=== PATIENT | female | born 1945 | race Caucasian/White ===

== ENCOUNTER → 2017-06-13 09:16 | Outpatient (CLI) | payer MEDICARE, SELFPAY ==
[2017-06-13 11:15] LABS: AST(SGOT) 20 U/L (15-37); Alanine Aminotransfer ALT/SGPT 22 U/L (13-56); Albumin, Serum 3.9 g/dL (3.2-5.0); Alkaline Phosphatase 88 U/L (45-117); Anion Gap 8 (5-15); BUN 22 mg/dL (7-18); BUN/Creat Ratio 23.4 RATIO (10-20); Calcium,Total 9.2 mg/dL (8.5-10.1); Chloride 103 mmol/L (98-107); Cholesterol 146 mg/dL (200); Creatinine, Serum 0.94 mg/dL (0.55-1.02); EST Glomerular Filtration Rate 62 mL/min (>60); Est Glom Filt Rate - Afr Amer 76 mL/min (>60); Globulin 3.8 g/dL (2.2-4.2); Glucose 94 mg/dL (74-106); Hemoglobin A1c 5.6 % (4.2-6.3); High Density Lipoprotein 65 mg/dL; Potassium 3.8 mmol/L (3.5-5.1); Protein, Total 7.7 g/dL (6.4-8.2); Sodium Level 142 mmol/L (136-145); Triglycerides 95 mg/dL; Very Low Density Lipoprotein 19 mg/dL (5-40)
== END ==
PROVIDERS: Nurse Practitioner Family; Family Provider Internal Medicine; PCP Internal Medicine; Visit Provider Internal Medicine
DX: I10 Essential (primary) hypertension (principal); E78.5 Hyperlipidemia, unspecified; E11.9 Type 2 diabetes mellitus without complications
CPT/HCPCS: 36415; 80053; 80061; 83036

== ENCOUNTER → 2017-06-15 10:55 | Outpatient (CLI) | payer MEDICARE, SELFPAY | PROVIDERS: Family Provider Internal Medicine; PCP Internal Medicine; Visit Provider Internal Medicine | DX: E55.9 Vitamin D deficiency, unspecified (principal) | CPT/HCPCS: 36415; 82306 ==

== ENCOUNTER → 2017-09-13 09:43 | Outpatient (CLI) | payer MEDICARE, SELFPAY ==
[2017-09-13 12:53] LABS: Anion Gap 6 (5-15); BUN 16 mg/dL (7-18); BUN/Creat Ratio 17.1 RATIO (10-20); Calcium,Total 9.1 mg/dL (8.5-10.1); Chloride 105 mmol/L (98-107); Creatinine, Serum 0.93 mg/dL (0.55-1.02); EST Glomerular Filtration Rate 63 mL/min (>60); Est Glom Filt Rate - Afr Amer 76 mL/min (>60); Glucose 83 mg/dL (74-106); Potassium 3.8 mmol/L (3.5-5.1); Sodium Level 142 mmol/L (136-145)
[2017-09-13 12:59] LABS: Hemoglobin A1c 5.5 % (4.2-6.3)
== END ==
PROVIDERS: Family Provider Internal Medicine; PCP Internal Medicine; Visit Provider Internal Medicine
DX: E11.9 Type 2 diabetes mellitus without complications (principal); I10 Essential (primary) hypertension
CPT/HCPCS: 36415; 80048; 83036

== ENCOUNTER → 2017-09-28 10:41 | Outpatient (CLI) | payer MEDICARE, SELFPAY ==
--- NOTE | 2017-09-28 10:43 | BI_ITS ---
MAMMOGRAPHY - BILATERAL SCREENING REASON FOR EXAM: Female, 72 years old. Routine annual screening examination. PERTINENT HISTORY: Non-contributory. TECHNIQUE: Digital bilateral breast dusty (3D mammographic acquisition) in the CC and MLO projections. 2-D mediolateral oblique (MLO) and craniocaudad (CC) views of both breasts were obtained. CAD: Full Field Digital Mammography with Computer Added Detection was performed. COMPARISON: Comparison is made with prior study dated September 25, 2016 and September 06, 2015. FINDINGS: Breast Composition: There are scattered areas of fibroglandular density. There are no dominant masses or suspicious calcifications. Stable appearance of the calcifications in the deep mid slightly outer aspect of the left breast most likely vascular in nature. No other significant abnormalities are identified. There has been no significant change since the prior study. BI/SCREENING MAMM (CAD), BILAT IMPRESSION: Stable bilateral screening mammogram. Yearly follow-up mammogram recommended. (A) ASSESSMENT CATEGORY: BIRADS Category 2: Benign. A letter regarding these results will be sent to the patient by the facility within 30 days. Approximately 10% of breast cancers are not detected by mammography. A normal mammogram should not delay biopsy of a clinically suspicious abnormality. [id number] Electronically Signed: Bairon Peterson MD at 12:35 EDT Tel [phone], Service support ,
== END ==
PROVIDERS: Family Provider Internal Medicine; PCP Internal Medicine; Visit Provider Internal Medicine
DX: Z12.31 Encounter for screening mammogram for malignant neoplasm of breast (principal)
CPT/HCPCS: 77063; 77067

== ENCOUNTER → 2018-03-14 08:09 | Outpatient (CLI) | payer MEDICARE, SELFPAY ==
[2018-03-14 10:01] LABS: Absolute Lymphocyte Count 2.42 X10^3/ul (0.83-4.51); Absolute Neutrophil Count 3.2 X10^3/uL (2.0-7.7); Basophil# 0.04 X10^3/uL; Basophil% 0.6 % (0-1); Eosinophil# 0.34 X10^3/uL; Eosinophils% 5.2 % (0-5); Hematocrit 37.7 % (37-47); Hemoglobin 12.3 g/dl (12.0-15.0); Lymphocyte # 2.42 X10^3/ul (4.0); Lymphocyte % 37.1 % (19-41); Mean Corp Hgb Conc 32.6 g/gl (32-36); Mean Platelet Vol. 9.2 fl (6.2-12.0); Monocyte# 0.54 X10^3/uL; Monocyte% 8.3 % (0-10); Neutrophil # 3.19 X10^3/uL (2.7-7.7); Neutrophil % 48.8 % (47-70); Platelet Count 280 K/mm3 (150-450); RBC Distribution Width CV 12.9 % (11.6-14.6); RBC Distribution Width SD 44.9 fl (35.1-43.9); Red Blood Count 3.97 M/mm3 (4.2-5.4); White Blood Count 6.5 K/mm3 (4.4-11.0)
[2018-03-14 10:12] LABS: POSITIVE COUNT NO; POSITIVE DIFFERENTIAL NO; POSITIVE MORPHOLOGY NO
[2018-03-14 10:20] LABS: Hemoglobin A1c 6.1 % (4.2-6.3)
[2018-03-14 10:33] LABS: ALB/GLOB Ratio 1.1 RATIO (0.9-2.4); AST(SGOT) 17 U/L (15-37); Alanine Aminotransfer ALT/SGPT 24 U/L (13-56); Albumin, Serum 3.9 g/dL (3.2-5.0); Alkaline Phosphatase 82 U/L (45-117); Anion Gap 9 (5-15); BUN 19 mg/dL (7-18); BUN/Creat Ratio 21.7 RATIO (10-20); Calcium,Total 9.3 mg/dL (8.5-10.1); Chloride 103 mmol/L (98-107); Cholesterol 155 mg/dL (200); Creatinine, Serum 0.88 mg/dL (0.55-1.02); EST Glomerular Filtration Rate 68 mL/min (>60); Est Glom Filt Rate - Afr Amer 82 mL/min (>60); Globulin 3.4 g/dL (2.2-4.2); Glucose 93 mg/dL (74-106); High Density Lipoprotein 81 mg/dL; Potassium 3.5 mmol/L (3.5-5.1); Protein, Total 7.3 g/dL (6.4-8.2); Sodium Level 142 mmol/L (136-145); Triglycerides 93 mg/dL; Very Low Density Lipoprotein 19 mg/dL (5-40)
== END ==
PROVIDERS: Family Provider Internal Medicine; PCP Internal Medicine; Referring Provider Internal Medicine; Visit Provider Internal Medicine
DX: E11.9 Type 2 diabetes mellitus without complications (principal); E78.5 Hyperlipidemia, unspecified
CPT/HCPCS: 36415; 80053; 80061; 83036; 85025

== ENCOUNTER → 2018-03-26 13:21 | Outpatient (CLI) | payer MEDICARE, SELFPAY ==
--- NOTE | 2018-03-26 13:33 | BD_ITS ---
STUDY: DUAL ENERGY X-RAY ABSORPTIOMETRY / DXA REASON FOR EXAM: Female, 72 years old. Early menopause. Loss of height. TECHNIQUE: Bone Mineral Density (BMD) measurements of lumbar spine and bilateral hips were obtained. COMPARISON: Comparison is made with prior study dated June 26, 2013. FINDINGS: Lumbar Spine (L1-L4): g/cm2 (1.087) / T-score (-0.7) / Z-score (1.0) Findings are suggestive of normal bone density with a low fracture risk. Left Femur Total: g/cm2 (1.171) / T-score (1.3) / Z-score (2.8) Left Femoral Neck: g/cm2 (1.100) / T-score (0.4) / Z-score (2.2) Right Femur Total: g/cm2 (1.069) / T-score (0.5) / Z-score (2.0) Right Femoral Neck: g/cm2 (0.947) / T-score (-0.7) / Z-score (1.1) The T-Scores on the most recent prior examination were: Lumbar Spine (L1-L4): There has been worsening of bone density since the previous examination. Left Femur Total: which represents a worsening of 0.9%. Right Femur Total: which represents a worsening of 0.6%. BD/Dexa Bone Density Study IMPRESSION: The patient is considered normal as outlined below according to World [place] Organization (WHO) criteria with a low fracture risk. There has been worsening of bone density since the previous examination. Reference Information: The T-score is the number of standard deviations above or below the standard which is normal for young adults at their peak bone mineral density. The World Health Organization (WHO) interprets the T-scores as follows: Above -1 Normal bone density Between -1 and -2.5 Osteopenia Equal to / or below -2.5 Osteoporosis As a practical clinical guideline, osteopenia may be graded as follows: Mild -1 through -1.5 Moderate -1.6 through -2.0 Severe -2.1 through -2.4 The Z-score is the number of standard deviations above or below age-matched controls. A Z-score of less than -1.5 would be considered abnormal. References: 1. NIH Osteoporosis and Related Bone Diseases http://www.osteo.org 2. International Society for Clinical Densitometry http://www.iscd.org 3. National Osteoporosis Foundation http://www.nof.org Electronically Signed: Bairon Peterson MD at 11:04 EST Tel [phone], Service support ,
== END ==
PROVIDERS: Family Provider Internal Medicine; PCP Internal Medicine; Visit Provider Internal Medicine
DX: Z78.0 Asymptomatic menopausal state (principal)
CPT/HCPCS: 77080

== ENCOUNTER → 2018-04-09 16:11 | Outpatient (CLI) | payer MEDICARE, SELFPAY ==
--- NOTE | 2018-04-09 16:14 | RAD_ITS ---
STUDY: X-RAY - SOFT TISSUE NECK REASON FOR EXAM: Female, 72 years old. Pain TECHNIQUE: 2 view(s) of the neck were obtained. COMPARISON: None. FINDINGS: Normal visualized nasopharynx, oropharynx, hypopharynx. Normal epiglottis. Normal visualized subglottic tracheal air column. There are no radiodense foreign bodies. The visualized soft tissues are unremarkable. RAD/Neck for Soft Tissue IMPRESSION: Normal x-ray soft tissue neck. Electronically Signed: Jose Sparks, at 16:41 EST Tel , Service support ,
--- NOTE | 2018-04-09 16:17 | RAD_ITS ---
STUDY: X-RAY - CERVICAL SPINE REASON FOR EXAM: Female, 72 years old. Pain TECHNIQUE: 6 view(s) of the cervical spine were obtained. COMPARISON: None FINDINGS: There is no evidence of fracture or dislocation in the cervical spine. The dens is intact. The vertebral body heights are well-maintained. There are mild degenerative changes in the lower cervical spine with disc space narrowing and small osteophytes. The prevertebral soft tissues are unremarkable. There is no radiodense foreign body. RAD/Cerv Spine 4 or 5 Views IMPRESSION: No fracture or dislocation in the cervical spine. Mild degenerative changes in the lower cervical spine. Electronically Signed: Jose Sparks, at 16:44 EST Tel , Service support ,
== END ==
PROVIDERS: Family Provider Internal Medicine; PCP Internal Medicine; Referring Provider Internal Medicine; Visit Provider Internal Medicine
DX: M54.2 Cervicalgia (principal)
CPT/HCPCS: 70360; 72050

== ENCOUNTER 2018-04-29 09:28 | Outpatient (RCR) | payer MEDICARE, SELFPAY ==
--- NOTE | 2018-05-01 11:18 | HP.PTEVAL_ITS ---
Patient's Visit Information DAVE VALERO is a 72 year old F referred to Physical Therapy by Desean Cartagena MD with a diagnosis of Cervicalgia. Date of Evaluation: 04/29/18 Physical Therapist: Leopoldo Trimble DPT - Visit Plan Frequency: 1x/Week Duration: 4 Weeks Plan: Start with R levator scap stretching, pec stretching, mid row, rhomboid strengthening. Add in SNAG rotation to R side only. Pt. given above exercises for HEP. Pt. to trial on own for 1-2 weeks to determine if able to self manage. If symptoms continue to improve or stay minimal/abolish, pt. does not need to return. If symptoms resume pt. to call in and be re assessed. - Subjective Findings: Pt. is here today for her initial evaluation with diagnosis of cervicalgia. Pt. reports having pain for ~6 weeks. She started taking a steroid and muscle relaxor which gave minimal relief. Pt. then started taking a pain medication and is no longer having symptoms. She has stopped taking this medication and is doing better. Pt. reports having no pain currently. She denies N/T in either UE. Pt. is back to sleeping without issues as well. Pt. is hopeful to maintain the reduction of her symptoms and get back to all recreational activities without limitations. - Objective POSTURE: Pt. has slight flexed posture, FH, increased thoracic kyposis, but is able to improve with VCing. PALPATON: Pt. has mild tenderness at R levator s capulea region. no pain with palpation througout cervical spine, cervical erector spinea. NEURO: Pt. has normal DTR of bilateral UEs, Pt. has normal sensation throughout bilateral UEs. ROM: CERVICAL SPINE: flexion nil loss NE, ext mod loss NE, rotation R min loss increase nW, rotation L nil loss NE, SB nil loss bilat NE. MMT: PT. has 5-/5 throughout bilateral UEs. Pt. has 5/5 cervical isometrics. - Special Tests C/S Radiculapathy - Left Upper limb tension test: Negative C/S Radiculapathy - Right Upper limb tension test: Negative C/S Radiculapathy - Left Spurlings: Negative C/S Radiculapathy - Right Spurlings: Negative C/S Radiculapathy - Left Cervical distraction: Negative C/S Radiculapathy - Right Cervical distraction: Negative C/S Radiculapathy - Left Relief test: Negative C/S Radiculapathy - Right Relief test: Negative C/S Radiculapathy - Valsalva: Negative Cervical Sitting: Protrusion - Mechanical Response: No effect Cervical Sitting: Protrusion - Symptoms During Testing: No effect Cervical Sitting: Protrusion - Symptoms After Testing: No effect Cervical Sitting: Retraction - Mechanical Response: No effect Cervical Sitting: Retraction - Symptoms During Testing: No effect Cervical Sitting: Retraction - Symptoms After Testing: No effect Cervical Sitting: Retraction-Extension - Mechanical Response: No effect Cerv Sitting: Retraction-Extension - Symptoms During Testing: No effect Cerv Sitting: Retraction-Extension - Symptoms After Testing: No effect Cervical Sitting: Sidebend Right - Mechanical Response: No effect Cervical Sitting: Sidebend Right - Symptoms During Testing: No effect Cervical Sitting: Sidebend Right - Symptoms After Testing: No effect Cervical Sitting: Sidebend Left - Mechanical Response: No effect Cervical Sitting: Sidebend Left - Symptoms During Testing: No effect Cervical Sitting: Sidebend Left - Symptoms After Testing: No effect Cervical Sitting: Rotation Right - Mechanical Response: No effect Cervical Sitting: Rotation Right - Symptoms During Testing: Increases Cervical Sitting: Rotation Right - Symptoms After Testing: No worse Cervical Sitting: Rotation Left - Mechanical Response: No effect Cervical Sitting: Rotation Left - Symptoms During Testing: No effect Cervical Sitting: Rotation Left - Symptoms After Testing: No effect Cervical Sitting: Flexion - Mechanical Response: No effect Cervical Sitting: Flexion - Symptoms During Testing: No effect Cervical Sitting: Flexion - Symptoms After Testing: No effect - Goals Goal 1:: Pt. to be I with HEP. Goal Time Frame: 2-4 Weeks Goal 2:: Pt. to have full cervical rotation to R side wihtout increase in symptoms. Goal Time Frame: 2-4 Weeks Goal 3:: Pt. to resume all recreational activities without increase in symptoms. Goal 4:: Pt. to sleep throughout the night without increase in symptoms. Goal Time Frame: 4-6 Weeks Goal 5:: Pt. to demonstrate improved posture throughout therapy visit indicating increased postural awareness. - Rehabilitation Potential Physical Therapy Diagnosis: Pt. has signs and symptoms of cervicalgia. Pt. has drastically reduced symptoms since physician visit. Pt. is tender at R levator scapulea with slight limitation with right cervical rotation. Pt. presents with more of a R levator scpaulea strain, may be trasverse process derrangement. Pt. would benefit from PT to increase cervical ROM and reudce movements that increase stress to R side of cervical spine. Rehabilitation Potential: Excellent - Anticipated Interventions Patient/Client Instruction: Educate patient on: Condition, Plan of Care, Risk Factors, Benefits of Fitness Program For the Purpose of:: To improve decision making, To facilitate caregiver knowledge, To improve self management, To prevent re-injury, To improve ability to perform tasks related to life management, To improve tolerance to ADL's Therapeutic Exercise to Include: Strength training, Postural training, Flexibilty training, Passive ROM, Active ROM For the Purpose of:: To decrease pain, To increase ROM, To improve nutrient delivery to tissue, To improve muscle performance and motor function, To improve health of tissue, To decrease soft tissue restriction, To increase flexibility/ROM Thank you for the opportunity to evaluate your patient. For Medicare and Medicare HMO plans, please review the plan of care and approve it. It will need to be FAXED BACK to us at [phone] for Medicare purposes. For Medicare only, by signing this I certify the plan of care. Please let me know if there are questions or concerns regarding this plan of care. Physician Signature: Date:
--- NOTE | 2018-11-14 14:03 | HP.PT.NRP ---
HP - Discharge Summary (1) - Patient Information DAVE VALERO was seen in my office for initial evaluation on 04/29/18. The following Plan of Care was established for this patient: Initial Frequency: 1x/Week Initial Duration: 4 Weeks - Anticipated Interventions Patient/Client Instruction: Educate patient on: Condition, Plan of Care, Risk Factors, Benefits of Fitness Program For the Purpose of:: To improve decision making, To facilitate caregiver knowledge, To improve self management, To prevent re-injury, To improve ability to perform tasks related to life management, To improve tolerance to ADL's Therapeutic Exercise to Include: Strength training, Postural training, Flexibilty training, Passive ROM, Active ROM For the Purpose of:: To decrease pain, To increase ROM, To improve nutrient delivery to tissue, To improve muscle performance and motor function, To improve health of tissue, To decrease soft tissue restriction, To increase flexibility/ROM This patient was last seen in our office 04/29/18. Pertinent comments regarding their Physical therapy will appear below: Pt. was seen for her initial evaluation, but did not return. Pt. will be DC from PT at this point intime. At this point I will be discontinuing this patient from physical therapy. I would be happy to see this patient again in the future if found appropriate by the physician. Thank you! Leopoldo Trimble DPT
== END 2018-04-29 19:00 | disposition home or self-care (01) ==
LOC: PT 09:28
PROVIDERS: Family Provider Internal Medicine; PCP Internal Medicine; Visit Provider Internal Medicine
DX: M54.2 Cervicalgia (principal)
CPT/HCPCS: 97161

== ENCOUNTER 2018-05-16 19:59 | Emergency (ER) | payer MEDICARE, SELFPAY ==
[2018-05-16 20:00] VITALS: BP 125/81; PULSE 69; RESP 16; TEMP 37.6; O2SAT 97; BMI 28.6
[2018-05-16 22:15] VITALS: BP 141/84; PULSE 66; RESP 16; O2SAT 94
--- NOTE | 2018-05-16 22:31 | CT_ITS ---
STUDY: CT BRAIN WITHOUT CONTRAST REASON FOR EXAM: Female, 72 years old. Fall and right eye bruising RADIATION DOSAGE (If Supplied By Facility): CTDIvol = ( 44.99 ) mGy, DLP = ( 812.98 ) mGycm TECHNIQUE: Transaxial CT imaging of the brain was performed without administration of intravenous contrast material. Individualized dose optimization techniques were used for this CT. COMPARISON: None. FINDINGS: Right periorbital swelling. Hyperostosis frontalis interna. Normal size ventricles and extra-axial spaces for the patient's age. There are areas of decreased attenuation within the white matter tracts of the supratentorial brain, consistent with microvascular disease changes. Age-related changes of the basal ganglia. Normal brainstem. Normal cerebellum. There is no intracranial hemorrhage. There are no findings of an acute ischemic infarction. Normal visualized paranasal sinuses. CT/Brain/Head without Contrast IMPRESSION: No fracture or intracranial hemorrhage. Electronically Signed: Terry Kaplan MD at 23:09 EST Tel , Service support ,
--- NOTE | 2018-05-16 22:35 | RAD_ITS ---
STUDY: X-RAY - RIGHT HAND REASON FOR EXAM: Female, 72 years old. Pain after fall TECHNIQUE: 3 view(s) of the hand. COMPARISON: 09/29/2015 FINDINGS: Normal radiocarpal articulation. Normal distal radioulnar joint. Normal visualized carpal bones. Normal carpal articulations Normal carpometacarpal articulation of the thumb. Normal second through fifth carpometacarpal joints. Normal metacarpi. Normal metacarpophalangeal joint of the thumb. Normal interphalangeal joint of the thumb. Normal proximal and distal phalanges of the thumb. Normal metacarpophalangeal joints of the second through fifth fingers. Normal proximal and distal interphalangeal joints of the second through fifth fingers. Acute comminuted fractures of the bases of the fourth and fifth proximal phalanges. Soft tissue swelling. RAD/Hand Min 3 Views IMPRESSION: Acute comminuted fractures of the bases of the fourth and fifth proximal phalanges. Electronically Signed: Terry Kaplan MD at 22:53 EST Tel , Service support ,
--- NOTE | 2018-05-16 23:58 | ED.VISSUMM ---
- ER Visit Summary Date of Service: 05/16/18 Chief Complaint: Fall History of Present Illness: The patient is a 72 F who presents after a fall today. Patient up to over uneven pavement and fell forward. Patient hit her right hand and right periorbital area. Patient denies any loss of consciousness. Patient states her pain is worse with movement. Patient denies any paresthesias or weakness. Patient states her last tetanus was 4 years ago. Physical Examination: Vital signs are stable. Patient is afebrile. Patient is in no acute distress. Pupils are equal, round, and reactive to light bilaterally. Extraocular muscles are intact. There is some mild tenderness over the lateral aspect of the right superior orbital ridge. There is no bony crepitance or step-off. There is some edema and ecchymosis over this area. There is some dried blood noted over this area. There is no active bleeding. Oral mucosa is pink and moist. Neck is supple. Trachea is midline. There is no JVD noted. Heart was regular rate and rhythm. Lungs are clear and equal bilateral. Abdomen is soft. Bowel sounds are normal. There is no tenderness. Musculoskeletal exam reveals tenderness, edema, and ecchymosis over the fourth and fifth MP joints and proximal phalanges. There is no obvious deformity noted. Range of motion was limited in all motions of the pain. Sensation was intact to light touch in all digits. Capillary refill was less than 2 seconds in all digits. Test Results: X-rays of the right hand revealed fractures of the fourth and fifth proximal phalanges. There is minimal angulation. There is no displacement. CT scan of the brain was obtained. There is no acute intracranial abnormality. There is no fracture of the orbit. Emergency Department Course and Treatment: The abrasion over the right periorbital area was cleaned. The fourth and fifth digits were carlin taped. Aluminum splint was applied to the patient's fourth digit. Patient was instructed to follow-up with an orthopedic surgeon of her choice. Patient was instructed to ice and elevate the right hand. Patient was instructed to return if worse in any way. Patient understood and was agreeable with the plan. All questions were answered. Disposition: Discharge home Impression: 1. Right fourth and fifth proximal phalanges fractures 2. Right periorbital contusion This note was generated with [employer] software. It may contain incorrect words, spelling, and punctuation that were not noted in review of the chart prior to signing ED Disposition - Plan for ED Patient: Disposition: Home or Assisted Living Diagnosis: Fracture of proximal phalanx of digit of right hand, Head contusion Instructions: ED Fx Finger Closed Referrals: Desean Cartagena MD [Primary Care Provider] -
[2018-05-17 01:02] VITALS: BP 112/77; PULSE 66; RESP 16; O2SAT 98
== END 2018-05-17 01:03 | disposition home or self-care (01) ==
PROVIDERS: Emergency Provider Emergency Medicine; Family Provider Internal Medicine; PCP Internal Medicine
DX: S62.614A Displaced fracture of proximal phalanx of right ring finger, initial encounter for closed fracture (principal); S62.616A Displaced fracture of proximal phalanx of right little finger, initial encounter for closed fracture; S00.11XA Contusion of right eyelid and periocular area, initial encounter; W18.09XA Striking against other object with subsequent fall, initial encounter; Y93.9 Activity, unspecified; Y92.9 Unspecified place or not applicable; Y99.9 Unspecified external cause status; E11.9 Type 2 diabetes mellitus without complications; I10 Essential (primary) hypertension; Z79.84 Long term (current) use of oral hypoglycemic drugs; Z79.82 Long term (current) use of aspirin; Z79.899 Other long term (current) drug therapy
CPT/HCPCS: 70450; 73130; 99282

== ENCOUNTER → 2018-05-20 11:23 | Outpatient (CLI) | payer MEDICARE, SELFPAY ==
[2018-05-20 10:50] VITALS: BMI 28.6
--- NOTE | 2018-05-20 11:25 | RAD_ITS ---
STUDY: X-RAY - RIGHT HAND, ATTENTION 4TH AND 5TH FINGER REASON FOR EXAM: Female, 72 years old. Pain TECHNIQUE: 4 view(s) of the finger were obtained. COMPARISON: None. FINDINGS: Osteopenia. Transverse mid diaphyseal fractures at the base of the proximal phalanges of the 4th and 5th digits. Mild displacement and impaction. 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 RAD/Finger(s) Min 2 Views IMPRESSION: 4th and 5th digit proximal phalangeal fractures. Electronically Signed: Dustin Sweeney MD at 12:33 EDT Tel , Service support ,
--- NOTE | 2018-05-20 12:07 | RAD_ITS ---
STUDY: X-RAY - RIGHT HAND, ATTENTION 4TH AND 5TH FINGER REASON FOR EXAM: Female, 72 years old. Post reduction, phalangeal fractures. TECHNIQUE: 3 view(s) of the finger were obtained. COMPARISON: None. FINDINGS: Bone detail is obscured by casting material. Metaphyseal fractures at the base of the 4th and 5th digits, proximal phalanges, no significant change in the appearance of the fractures post reduction. RAD/Finger(s) Min 2 Views IMPRESSION: Stable fractures. Electronically Signed: Dustin Sweeney MD at 18:08 EDT Tel , Service support ,
== END ==
PROVIDERS: Family Provider Internal Medicine; PCP Internal Medicine; Referring Provider Orthopaedic Surgery; Visit Provider Orthopaedic Surgery
DX: M79.644 Pain in right finger(s) (principal)
CPT/HCPCS: 73140

== ENCOUNTER → 2018-05-23 09:18 | Outpatient (CLI) | payer MEDICARE, SELFPAY ==
[2018-05-20 10:50] VITALS: BMI 28.6
--- NOTE | 2018-05-23 09:22 | RAD_ITS ---
STUDY: X-RAY - ESOPHAGUS (BARIUM SWALLOW) WITH FLUOROSCOPY REASON FOR EXAM: Female, 72 years old. Change in voice. Constant need to clear her throat. TECHNIQUE: 22 view(s) of the esophagus were obtained following swallowing of barium. FLUOROSCOPY TIME (if supplied): (0:30) minutes/seconds COMPARISON: None. FINDINGS: There is no demonstrated esophageal foreign body. 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 The patient ingested a 12 mm tablet of barium. There was transient holdup of the tablet at the weblike stenosis. The tablet eventually passed into the stomach. There is atherosclerotic tortuosity of the aortic arch and descending thoracic aorta. Normal visualized pulmonary parenchyma. Normal visualized osseous structures of the thorax. RAD/Esophagus Only IMPRESSION: Small sliding hernia with no gastric esophageal reflux. 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 Electronically Signed: Bairon Peterson, at 10:17 EDT , Service support ,
== END ==
PROVIDERS: Family Provider Internal Medicine; PCP Internal Medicine; Referring Provider Otolaryngology Otolaryngology/Facial Plastic Surgery; Visit Provider Otolaryngology Otolaryngology/Facial Plastic Surgery
DX: R49.0 Dysphonia (principal); R05 Cough
CPT/HCPCS: 74220

== ENCOUNTER → 2018-06-07 09:53 | Outpatient (CLI) | payer MEDICARE, SELFPAY ==
[2018-05-20 10:50] VITALS: BMI 28.6
[2018-06-07 13:13] LABS: Hemoglobin A1c 5.7 % (4.2-6.3)
== END ==
PROVIDERS: Family Provider Internal Medicine; PCP Internal Medicine; Referring Provider Internal Medicine; Visit Provider Internal Medicine
DX: E11.9 Type 2 diabetes mellitus without complications (principal)
CPT/HCPCS: 36415; 83036

== ENCOUNTER → 2018-06-17 10:40 | Outpatient (CLI) | payer MEDICARE, SELFPAY ==
[2018-06-11 09:10] VITALS: BMI 28.6
--- NOTE | 2018-06-17 10:41 | RAD_ITS ---
STUDY: X-RAY - RIGHT HAND, ATTENTION FOURTH AND FIFTH FINGER REASON FOR EXAM: Female, 73 years old. Injury TECHNIQUE: 4 view(s) of the finger were obtained. COMPARISON: May 20, 2018 FINDINGS: Again noted are comminuted transverse fractures through the base of the proximal phalanx of the fourth and fifth digit. Mild interval healing with callus formation is noted. Stable alignment from prior. Decreased soft tissue swelling RAD/Finger(s) Min 2 Views IMPRESSION: As above Electronically Signed: Jas Liao DO at 11:37 EDT Tel , Service support ,
== END ==
PROVIDERS: Family Provider Internal Medicine; PCP Internal Medicine; Referring Provider Orthopaedic Surgery; Visit Provider Orthopaedic Surgery
DX: S62.639A Displaced fracture of distal phalanx of unspecified finger, initial encounter for closed fracture (principal)
CPT/HCPCS: 73140

== ENCOUNTER 2018-09-02 09:00 | Outpatient (RCR) | payer MEDICARE, SELFPAY ==
[2018-07-01 07:59] VITALS: BMI 28.6
--- NOTE | 2018-07-03 09:23 | HP.OTEVAL ---
Patient's Visit Information DAVE VALERO is a 73 year old F, referred to Occupational Therapy by Gabriel Jackson DO, with a diagnosis of Right RF/LF fx. Date of Evaluation: 07/01/18 Occupational Therapist: OBEY Fisher/Josesito, CHT - Subjective Subjective: This 73 year old female was seen for initial OT eval following right LF and RF fx. PT states May 17 she had a fall suffering fx. pt was casted for 2 weeks, and splint two weeks. Pt is right handed. today pt arrives states she started to use it more and has noticed improvements with her ROM. pt would like to continue to improve and return to her PLOF. - Pain right hand 3 Pain Intensity Range: 3, 6 - ROM MP: r - Strength Physical Therapy Assistant: right 20# left 60# Lateral Pinch: right 10# left 12# Tripod Pinch: right 8# left 10# - Sensation Sensation Comments: denies - Quick DASH-Disab of Arm,Shoulder& Hand Quick DASH Score: 56.8175 - Goals Goal:: pt will demo a increase in right explosives detonator to 35# to return pt to PLOF with ADLs and IADLs by d/c Goal:: pt will demo the ability to form a composite fist to hold coins ind. by d/c. pt will demo full digit ext to sagar golve ind. by d/c Goal:: pt will report pain no greater than 1/10 with use of right hand for ADLs and IADLS by d/c. Goal:: pt will demo the ability to perform finger to palm translation and palm to finger with coins without dropping to increase pts ind with coin/money mtg. by d/c - Rehabilitation General Assessment: PT demo with limited right RF/LF ROM and strength. Pt states she is having more difficulty with ADLs and IADLs due to the limited ROM. Therapist noted with blocking min. LF PIP flex. Pt would benefit from skilled OT services 1-2x week for 6 weeks to ensure pts ROM and strength returns for pt to perform ADLS and IADLS at IND. level. Today pt was ed. on PROM, AROM and blocking ex. pt given handout. pt demo understanding of ex and agrees to POD. Rehabilitation Potential: Good - Anticipated Interventions Anticipated Interventions: A/AAROM/PROM, Strengthening, Triggerpoint Release, Modalities, Orthoses, Joint Protection/Energy Conservation, Fine Motor Coord/Erik - Visit Plan Frequency: 1-2x /Week Duration: 6 Weeks TEXT: Thank you for the opportunity to evaluate your patient. For Medicare and Medicare HMO plans, please review the plan of care and approve it. It will need to be FAXED BACK to us at [phone] for Medicare purposes. Please let me know if there are questions or concerns regarding this plan of care. Physician Signature: Date:
--- NOTE | 2018-07-04 10:29 | HP.OTEVAL_ITS ---
Patient's Visit Information DAVE VALERO is a 73 year old F, referred to Occupational Therapy by Garbiel Jackson DO, with a diagnosis of Right RF/LF fx. Date of Evaluation: 07/01/18 Occupational Therapist: OBEY Fisher/Josesito, CHT - Subjective Subjective: This 73 year old female was seen for initial OT eval following right LF and RF fx. PT states May 17 she had a fall suffering fx. pt was casted for 2 weeks, and splint two weeks. Pt is right handed. today pt arrives states she started to use it more and has noticed improvements with her ROM. pt would like to continue to improve and return to her PLOF. - Pain right hand 3 Pain Intensity Range: 3, 6 - ROM ROM Comments: right LF MCP +5/55 PIP -15/25 DIP 0/20. right RF MCP 0/70 PIP - 5/55 DIP 0/10 - Strength After School Coordinator: right 20# left 60# Lateral Pinch: right 10# left 12# Tripod Pinch: right 8# left 10# - Sensation Sensation Comments: denies - Quick DASH-Disab of Arm,Shoulder& Hand Quick DASH Score: 56.8175 - Goals Goal:: pt will demo a increase in right cable driller to 35# to return pt to PLOF with ADLs and IADLs by d/c Goal:: pt will demo the ability to form a composite fist to hold coins ind. by d/c. pt will demo full digit ext to sagar golve ind. by d/c Goal:: pt will report pain no greater than 1/10 with use of right hand for ADLs and IADLS by d/c. Goal:: pt will demo the ability to perform finger to palm translation and palm to finger with coins without dropping to increase pts ind with coin/money mtg. by d/c - Rehabilitation General Assessment: PT demo with limited right RF/LF ROM and strength. Pt states she is having more difficulty with ADLs and IADLs due to the limited ROM. Therapist noted with blocking min. LF PIP flex. Pt would benefit from skilled OT services 1-2x week for 6 weeks to ensure pts ROM and strength returns for pt to perform ADLS and IADLS at IND. level. Today pt was ed. on PROM, AROM and blocking ex. pt given handout. pt demo understanding of ex and agrees to POD. Rehabilitation Potential: Good - Anticipated Interventions Anticipated Interventions: A/AAROM/PROM, Strengthening, Triggerpoint Release, Modalities, Orthoses, Joint Protection/Energy Conservation, Fine Motor Coord/Erik - Visit Plan Frequency: 1-2x /Week Duration: 6 Weeks TEXT: Thank you for the opportunity to evaluate your patient. For Medicare and Medicare HMO plans, please review the plan of care and approve it. It will need to be FAXED BACK to us at [phone] for Medicare purposes. Please let me know if there are questions or concerns regarding this plan of care. Physician Signature: Date:
--- NOTE | 2018-12-11 10:41 | HP.OT.NRP ---
HP - Discharge Summary - Patient Information DAVE VALERO was seen in my office for initial evaluation on 07/01/18. The following Plan of Care was established for this patient: Initial Frequency: 1-2x /Week Initial Duration: 6 Weeks Plan: check orthosis - Anticipated Interventions Anticipated Interventions: A/AAROM/PROM, Strengthening, Triggerpoint Release, Modalities, Orthoses, Joint Protection/Energy Conservation, Fine Motor Coord/Erik This patient was last seen in our office 07/01/18. Pertinent comments regarding their Occupational therapy will appear below: Pt was seen for 7 OT visits. therapy worked on ROM and orthosis to increase ext of PIP. pt was not progressing with her ROM or use of her hand for ADLs and IADLs. THerapist rec'd pt return to her for further eval. pt has not returned at this time for OT services and is D/C due to time-lapes in services. At this point I will be discontinuing this patient from occupational therapy. I would be happy to see this patient again in the future if found appropriate by the physician. Thank you! Shraddha Ying, OTR/L, CHT
== END 2018-09-02 19:00 | disposition home or self-care (01) ==
LOC: OT 09:00
PROVIDERS: Family Provider Internal Medicine; PCP Internal Medicine; Visit Provider Orthopaedic Surgery
DX: S62.606D Fracture of unspecified phalanx of right little finger, subsequent encounter for fracture with routine healing (principal); S62.604D Fracture of unspecified phalanx of right ring finger, subsequent encounter for fracture with routine healing
CPT/HCPCS: 97035; 97110; 97140; 97166; 97530; 97760

== ENCOUNTER → 2018-09-20 | Outpatient (CLI) | payer MEDICARE, SELFPAY ==
[2018-09-20 09:21] VITALS: BMI 28.6
--- NOTE | 2018-09-20 09:30 | RAD_ITS ---
STUDY: X-RAY - RIGHT HAND REASON FOR EXAM: Female, 73 years old. Follow-up finger fractures, fourth and fifth fingers. TECHNIQUE: 3 view(s) of the hand. COMPARISON: Prior exam of June 17, 2018 FINDINGS: Healing fractures at the base of the proximal phalanges of the fourth and fifth fingers without change in alignment. Substantial callus has formed at the fracture site. RAD/Hand Min 3 Views IMPRESSION: Healing fractures at the base of the proximal phalanges of the fourth and fifth fingers with no change in alignment. Substantial callus has formed at the fracture sites. Electronically Signed: Sherry Dutton MD at 17:01 EDT , Service support ,
== END | disposition home or self-care (01) ==
LOC: HPRAD 09:27
PROVIDERS: Family Provider Internal Medicine; PCP Internal Medicine; Referring Provider Orthopaedic Surgery; Visit Provider Orthopaedic Surgery
DX: S62.614D Displaced fracture of proximal phalanx of right ring finger, subsequent encounter for fracture with routine healing (principal); S62.616D Displaced fracture of proximal phalanx of right little finger, subsequent encounter for fracture with routine healing
CPT/HCPCS: 73130

== ENCOUNTER → 2018-10-01 | Outpatient (CLI) | payer MEDICARE, SELFPAY ==
[2018-07-01 07:59] VITALS: BMI 28.6
[2018-09-20 09:21] VITALS: BMI 28.6
--- NOTE | 2018-10-01 10:44 | BI_ITS ---
MAMMOGRAPHY - BILATERAL SCREENING 3-D TOMOSYNTHESIS REASON FOR EXAM: Female, 73 years old. Bilateral Screening 3-D tomosynthesis PERTINENT HISTORY: No significant family history. TECHNIQUE: 2-D mammograms and 3-D Tomosynthesis of the breast (s) were performed. CAD was performed. COMPARISON: 09/28/2017 FINDINGS: The breast composition is composed of scattered fibroglandular density. Scattered benign calcifications are seen. No dense spiculated masses or suspicious microcalcifications are identified. No architectural distortion is identified. There is no skin thickening or retraction. There has been no significant change since the prior study. BI/SCREEN MAMM (CAD) W/QUIANA BILAT IMPRESSION: No mammographic signs of malignancy. Routine yearly mammograms recommended. ASSESSMENT CATEGORY: BIRADS Category 1: Negative. A letter regarding these results will be sent to the patient by the facility within 30 days. FOLLOW UP RECOMMENDATION: Yearly follow up mammogram recommended. (A) Approximately 10% of breast cancers are not detected by mammography. A normal mammogram should not delay biopsy of a clinically suspicious abnormality. Electronically Signed: Carrington Jimenez MD at 12:16 EDT , Service support ,
[2018-10-01 12:25] LABS: Hematocrit 38.5 % (37-47); Hemoglobin 12.6 g/dL (12.0-15.0); Mean Corp Hgb Conc 32.7 g/dL (32-36); Mean Corpuscular Hgb 30.7 pg (27.0-32.0); Mean Corpuscular Volume 93.7 fL (81-99); Mean Platelet Vol. 9.6 fl (6.2-12.0); Platelet Count 273 K/mm3 (150-450); RBC Distribution Width CV 12.7 % (11.6-14.6); Red Blood Count 4.11 M/mm3 (4.2-5.4); White Blood Count 6.7 K/mm3 (4.4-11.0)
[2018-10-01 12:44] LABS: ALB/GLOB Ratio 1.1 RATIO (0.9-2.4); AST(SGOT) 19 U/L (15-37); Alanine Aminotransfer ALT/SGPT 20 U/L (13-56); Albumin, Serum 3.9 g/dL (3.2-5.0); Alkaline Phosphatase 79 U/L (45-117); Anion Gap 6 (5-15); BUN 19 mg/dL (7-18); BUN/Creat Ratio 18.3 RATIO (10-20); Calcium,Total 9.2 mg/dL (8.5-10.1); Chloride 105 mmol/L (98-107); Cholesterol 164 mg/dL (200); Creatinine, Serum 1.04 mg/dL (0.55-1.02); EST Glomerular Filtration Rate 56 mL/min (>60); Est Glom Filt Rate - Afr Amer 67 mL/min (>60); Globulin 3.5 g/dL (2.2-4.2); Glucose 95 mg/dL (74-106); High Density Lipoprotein 83 mg/dL; Potassium 3.6 mmol/L (3.5-5.1); Protein, Total 7.4 g/dL (6.4-8.2); Sodium Level 140 mmol/L (136-145); Triglycerides 98 mg/dL; Very Low Density Lipoprotein 20 mg/dL (5-40)
[2018-10-01 12:48] LABS: Hemoglobin A1c 5.8 % (4.2-6.3)
[2018-10-01 13:00] LABS: Microalbumin,Random Urine 6.9 mg/L (NO RANGE EST.); Microalbumin:Creatinine Ratio 5.9 mg/g CRE (<30 mg/g CRE)
== END | disposition home or self-care (01) ==
PROVIDERS: Nurse Practitioner Family; Family Provider Internal Medicine; PCP Internal Medicine; Referring Provider Internal Medicine; Visit Provider Internal Medicine
DX: Z12.31 Encounter for screening mammogram for malignant neoplasm of breast (principal); E11.9 Type 2 diabetes mellitus without complications; E78.5 Hyperlipidemia, unspecified; I10 Essential (primary) hypertension
CPT/HCPCS: 36415; 77063; 77067; 80053; 80061; 82043; 82570; 83036; 85027

== ENCOUNTER → 2019-01-04 08:31 | Outpatient (CLI) | payer MEDICARE, SELFPAY ==
[2018-10-07 09:48] VITALS: BMI 28.6
[2019-01-04 09:59] LABS: Hemoglobin A1c 5.7 % (4.2-6.3)
[2019-01-04 10:23] LABS: Anion Gap 4 (5-15); BUN 24 mg/dL (7-18); BUN/Creat Ratio 24.7 RATIO (10-20); Calcium,Total 9.8 mg/dL (8.5-10.1); Chloride 106 mmol/L (98-107); Creatinine, Serum 0.97 mg/dL (0.55-1.02); EST Glomerular Filtration Rate 60 mL/min (>60); Est Glom Filt Rate - Afr Amer 73 mL/min (>60); Glucose 99 mg/dL (74-106); Potassium 3.6 mmol/L (3.5-5.1); Sodium Level 142 mmol/L (136-145)
== END ==
PROVIDERS: Family Provider Internal Medicine; PCP Internal Medicine; Referring Provider Internal Medicine; Visit Provider Internal Medicine
DX: E11.9 Type 2 diabetes mellitus without complications (principal); I10 Essential (primary) hypertension
CPT/HCPCS: 36415; 80048; 83036

== ENCOUNTER 2019-01-22 13:03 | Outpatient (RCR) | payer MEDICARE, SELFPAY ==
[2018-10-07 09:48] VITALS: BMI 28.6
[2019-01-10 08:54] VITALS: BMI 28.5
== END 2019-02-08 23:59 ==
LOC: DC 13:03
PROVIDERS: Family Provider Internal Medicine; PCP Internal Medicine; Visit Provider Internal Medicine
DX: Z71.3 Dietary counseling and surveillance (principal); E11.9 Type 2 diabetes mellitus without complications; E66.3 Overweight; Z68.28 Body mass index [BMI] 28.0-28.9, adult
CPT/HCPCS: G0108

== ENCOUNTER 2019-02-12 10:00 | Outpatient (RCR) | payer MEDICARE, SELFPAY ==
[2019-01-10 08:54] VITALS: BMI 28.5
== END 2019-03-11 23:59 ==
LOC: DC 10:00
PROVIDERS: Family Provider Internal Medicine; PCP Internal Medicine; Visit Provider Internal Medicine
DX: Z71.3 Dietary counseling and surveillance (principal); E11.9 Type 2 diabetes mellitus without complications; E66.3 Overweight; Z68.28 Body mass index [BMI] 28.0-28.9, adult
CPT/HCPCS: 97802; G0108

== ENCOUNTER 2019-03-24 11:00 | Outpatient (RCR) | payer MEDICARE, SELFPAY ==
[2019-01-10 08:54] VITALS: BMI 28.5
== END 2019-04-11 23:59 ==
LOC: DC 11:00
PROVIDERS: Family Provider Internal Medicine; PCP Internal Medicine; Visit Provider Internal Medicine
DX: Z71.3 Dietary counseling and surveillance (principal); E11.9 Type 2 diabetes mellitus without complications; E66.3 Overweight; Z68.28 Body mass index [BMI] 28.0-28.9, adult
CPT/HCPCS: 97803; G0109

== ENCOUNTER 2019-04-17 07:45 | Outpatient (RCR) | payer MEDICARE, SELFPAY ==
[2019-01-10 08:54] VITALS: BMI 28.5
== END 2019-05-10 23:59 ==
LOC: DC 07:45
PROVIDERS: Family Provider Internal Medicine; PCP Internal Medicine; Visit Provider Internal Medicine
DX: Z71.3 Dietary counseling and surveillance (principal); E11.9 Type 2 diabetes mellitus without complications; E66.3 Overweight; Z68.28 Body mass index [BMI] 28.0-28.9, adult
CPT/HCPCS: G0109

== ENCOUNTER → 2019-04-17 08:43 | Outpatient (CLI) | payer MEDICARE, SELFPAY ==
[2019-01-10 08:54] VITALS: BMI 28.5
[2019-04-17 12:22] LABS: Hematocrit 38.3 % (37-47); Hemoglobin 12.6 g/dL (12.0-15.0); Mean Corp Hgb Conc 32.9 g/dL (32-36); Mean Corpuscular Hgb 30.5 pg (27.0-32.0); Mean Corpuscular Volume 92.7 fL (81-99); Mean Platelet Vol. 9.8 fl (6.2-12.0); Platelet Count 290 K/mm3 (150-450); RBC Distribution Width CV 12.4 % (11.6-14.6); RBC Distribution Width SD 42.2 fl (35.1-43.9); Red Blood Count 4.13 M/mm3 (4.2-5.4); White Blood Count 6.1 K/mm3 (4.4-11.0)
[2019-04-17 12:51] LABS: Microalbumin,Random Urine < 5.0 mg/L (NO RANGE EST.)
[2019-04-17 12:54] LABS: Hemoglobin A1c 5.7 % (4.2-6.3)
[2019-04-17 13:04] LABS: ALB/GLOB Ratio 1.1 RATIO (0.9-2.4); AST(SGOT) 23 U/L (15-37); Alanine Aminotransfer ALT/SGPT 30 U/L (13-56); Albumin, Serum 3.9 g/dL (3.2-5.0); Alkaline Phosphatase 69 U/L (45-117); Anion Gap 3 (5-15); BUN 17 mg/dL (7-18); BUN/Creat Ratio 17.2 RATIO (10-20); Calcium,Total 9.8 mg/dL (8.5-10.1); Chloride 106 mmol/L (98-107); Cholesterol 142 mg/dL (200); Creatinine, Serum 0.99 mg/dL (0.55-1.02); EST Glomerular Filtration Rate 59 mL/min (>60); Est Glom Filt Rate - Afr Amer 71 mL/min (>60); Globulin 3.7 g/dL (2.2-4.2); Glucose 85 mg/dL (74-106); High Density Lipoprotein 63 mg/dL; Potassium 3.3 mmol/L (3.5-5.1); Protein, Total 7.6 g/dL (6.4-8.2); Sodium Level 140 mmol/L (136-145); Thyroid Stim Hormone (TSH) 2.37 uIU/mL (0.358-3.74); Triglycerides 95 mg/dL; Very Low Density Lipoprotein 19 mg/dL (5-40)
== END ==
PROVIDERS: Nurse Practitioner Family; PCP Internal Medicine; Visit Provider Internal Medicine
DX: E11.9 Type 2 diabetes mellitus without complications (principal); E78.5 Hyperlipidemia, unspecified; I10 Essential (primary) hypertension; Z71.3 Dietary counseling and surveillance; E66.3 Overweight; Z68.28 Body mass index [BMI] 28.0-28.9, adult
CPT/HCPCS: 36415; 80053; 80061; 82043; 82570; 83036; 84443; 85027; G0109

== ENCOUNTER → 2019-05-15 09:17 | Outpatient (CLI) | payer MEDICARE, SELFPAY ==
[2019-04-18 09:29] VITALS: BMI 27.8
[2019-05-15 12:52] LABS: Anion Gap 2 (5-15); BUN 15 mg/dL (7-18); BUN/Creat Ratio 15.7 RATIO (10-20); Calcium,Total 9.7 mg/dL (8.5-10.1); Chloride 108 mmol/L (98-107); Creatinine, Serum 0.96 mg/dL (0.55-1.02); EST Glomerular Filtration Rate 61 mL/min (>60); Est Glom Filt Rate - Afr Amer 74 mL/min (>60); Glucose 92 mg/dL (74-106); Potassium 3.5 mmol/L (3.5-5.1); Sodium Level 142 mmol/L (136-145)
== END ==
PROVIDERS: PCP Internal Medicine; Referring Provider Internal Medicine; Visit Provider Internal Medicine
DX: I10 Essential (primary) hypertension (principal); E87.6 Hypokalemia
CPT/HCPCS: 36415; 80048

== ENCOUNTER → 2019-05-26 15:24 | Outpatient (CLI) | payer MEDICARE, SELFPAY ==
[2019-05-21 10:59] VITALS: BMI 27.8
--- NOTE | 2019-05-26 15:39 | RAD_ITS ---
STUDY: X-RAY - RIGHT HAND, ATTENTION FOURTH FINGER REASON FOR EXAM: Female, 73 years old. trigger finger, right 4th TECHNIQUE: 3 view(s) of the finger were obtained. COMPARISON: None. FINDINGS: Normal metacarpal head. Normal metacarpophalangeal joint. There is an old healed fracture of the base of the proximal phalanx of the thumb fourth finger. Otherwise normal proximal phalanx. Normal middle phalanx. Normal distal phalanx. Mild flexion of the proximal interphalangeal joint with mild degenerative disease. Otherwise unremarkable proximal interphalangeal joint. Normal distal interphalangeal joint. There is no demonstrated fracture. RAD/Finger(s) Min 2 Views IMPRESSION: Mild degenerative as described above with mild flexion at the proximal interphalangeal joint. Sequela of old fracture of the proximal phalanx of the fourth finger. No acute fracture or subluxation seen. Electronically Signed: Isidra Jerez MD at 4:11 EDT , Service support ,
--- NOTE | 2019-05-26 15:39 | RAD_ITS ---
STUDY: X-RAY - RIGHT HAND REASON FOR EXAM: Female, 73 years old. Right hand pain, previous right ring and little finger fx TECHNIQUE: 3 view(s) of the hand. COMPARISON: 09/20/2018 FINDINGS: Normal radiocarpal articulation. Normal distal radioulnar joint. Generalized osteopenia. Normal visualized carpal bones. Normal carpal articulations Normal carpometacarpal articulation of the thumb. Normal second through fifth carpometacarpal joints. Remote fracture deformity of the fourth and fifth metacarpal base otherwise normal metacarpal. Normal metacarpophalangeal joint of the thumb. Normal interphalangeal joint of the thumb. Normal proximal and distal phalanges of the thumb. Normal metacarpophalangeal joints of the second through fifth fingers. Arthropathy of the proximal and distal interphalangeal joints of the second through fifth fingers. Normal phalanges of the second through fifth fingers. The soft tissue structures are unremarkable. RAD/Hand Min 3 Views IMPRESSION: Osteoporosis and degenerative changes, remote injury of the fourth and fifth proximal metacarpal base. Electronically Signed: Hayley Piedra MD at 6:29 EDT , Service support ,
== END ==
PROVIDERS: PCP Internal Medicine; Referring Provider Surgery; Visit Provider Surgery
DX: M65.341 Trigger finger, right ring finger (principal); M79.641 Pain in right hand; S62.61 Displaced fracture of proximal phalanx of finger; S62.616S Displaced fracture of proximal phalanx of right little finger, sequela; E11.9 Type 2 diabetes mellitus without complications
CPT/HCPCS: 73130; 73140

== ENCOUNTER 2019-05-27 09:55 | Outpatient (RCR) | payer MEDICARE, SELFPAY ==
[2019-04-18 09:29] VITALS: BMI 27.8
[2019-05-21 10:59] VITALS: BMI 27.8
== END 2019-06-10 23:59 ==
LOC: DC 09:55
PROVIDERS: Family Provider Internal Medicine; PCP Internal Medicine; Visit Provider Internal Medicine
DX: Z71.3 Dietary counseling and surveillance (principal); E11.9 Type 2 diabetes mellitus without complications; E66.3 Overweight; Z68.28 Body mass index [BMI] 28.0-28.9, adult
CPT/HCPCS: 97803

== ENCOUNTER 2019-09-04 15:58 | Outpatient (RCR) | payer MEDICARE, SELFPAY ==
[2019-05-21 10:59] VITALS: BMI 27.8
[2019-07-18 13:09] VITALS: BMI 27.8
== END 2019-09-09 23:59 ==
LOC: DC 15:58
PROVIDERS: Family Provider Internal Medicine; PCP Internal Medicine; Visit Provider Internal Medicine
DX: Z71.3 Dietary counseling and surveillance (principal); E11.9 Type 2 diabetes mellitus without complications; E66.3 Overweight; Z68.28 Body mass index [BMI] 28.0-28.9, adult
CPT/HCPCS: G0109

== ENCOUNTER 2019-09-18 17:23 | Outpatient (RCR) | payer MEDICARE, SELFPAY ==
[2019-07-18 13:09] VITALS: BMI 27.8
== END 2019-09-18 23:59 | disposition home or self-care (01) ==
LOC: DC 17:23
PROVIDERS: Family Provider Internal Medicine; PCP Internal Medicine; Referring Provider Internal Medicine; Visit Provider Internal Medicine
DX: Z71.3 Dietary counseling and surveillance (principal); E11.9 Type 2 diabetes mellitus without complications; E66.3 Overweight; Z68.28 Body mass index [BMI] 28.0-28.9, adult
CPT/HCPCS: G0109

== ENCOUNTER → 2019-09-26 08:02 | Outpatient (CLI) | payer MEDICARE, SELFPAY ==
[2019-07-18 13:09] VITALS: BMI 27.8
[2019-09-26 10:10] LABS: Anion Gap 3 (5-15); BUN 17 mg/dL (7-18); BUN/Creat Ratio 18.5 RATIO (10-20); Calcium,Total 9.6 mg/dL (8.5-10.1); Chloride 107 mmol/L (98-107); Creatinine, Serum 0.92 mg/dL (0.55-1.02); EST Glomerular Filtration Rate 64 mL/min (>60); Est Glom Filt Rate - Afr Amer 77 mL/min (>60); Glucose 99 mg/dL (74-106); Potassium 3.6 mmol/L (3.5-5.1); Sodium Level 142 mmol/L (136-145)
[2019-09-26 10:43] LABS: Hemoglobin A1c 5.5 % (3.8-5.6)
== END ==
PROVIDERS: PCP Internal Medicine; Referring Provider Internal Medicine; Visit Provider Internal Medicine
DX: E11.9 Type 2 diabetes mellitus without complications (principal)
CPT/HCPCS: 36415; 80048; 83036

== ENCOUNTER → 2019-10-07 10:07 | Outpatient (CLI) | payer MEDICARE, SELFPAY ==
[2019-07-18 13:09] VITALS: BMI 27.8
[2019-09-29 10:44] VITALS: BMI 27.8
--- NOTE | 2019-10-07 10:08 | BI_ITS ---
MAMMOGRAPHY - BILATERAL SCREENING REASON FOR EXAM: Female, 74 years old. Routine annual screening examination. PERTINENT HISTORY: Non-contributory. TECHNIQUE: Digital bilateral breast quiana (3D mammographic acquisition) in the CC and MLO projections. 2-D mediolateral oblique (MLO) and craniocaudad (CC) views of both breasts were obtained. CAD: Full Field Digital Mammography with Computer Added Detection was performed. COMPARISON: Comparison is made with prior examination dated 10-01-18 and 10-06-17. FINDINGS: Breast Composition: There are scattered areas of fibroglandular density. There are no dominant masses or suspicious calcifications. No other significant abnormalities are identified. There has been no significant change since the prior study. BI/SCREEN MAMM (CAD) W/QUIANA BILAT IMPRESSION: Stable bilateral screening mammogram. Yearly follow-up mammogram recommended. (A) ASSESSMENT CATEGORY: BIRADS Category 1: Negative. A letter regarding these results will be sent to the patient by the facility within 30 days. Approximately 10% of breast cancers are not detected by mammography. A normal mammogram should not delay biopsy of a clinically suspicious abnormality. [id number] Electronically Signed: Bairon Peterson, at 11:19 EDT , Service support ,
== END ==
PROVIDERS: PCP Internal Medicine; Referring Provider Internal Medicine; Visit Provider Internal Medicine
DX: Z12.31 Encounter for screening mammogram for malignant neoplasm of breast (principal)
CPT/HCPCS: 77063; 77067

== ENCOUNTER → 2020-02-27 08:16 | Outpatient (CLI) | payer MEDICARE, SELFPAY ==
[2019-09-29 10:44] VITALS: BMI 27.8
[2020-02-27 10:35] LABS: ALB/GLOB Ratio 1.1 RATIO (0.9-2.4); AST(SGOT) 17 U/L (15-37); Alanine Aminotransfer ALT/SGPT 21 U/L (13-56); Albumin, Serum 3.9 g/dL (3.2-5.0); Alkaline Phosphatase 84 U/L (45-117); Anion Gap 3 (5-15); BUN 19 mg/dL (7-18); BUN/Creat Ratio 19.4 RATIO (10-20); Calcium,Total 9.8 mg/dL (8.5-10.1); Chloride 106 mmol/L (98-107); Creatinine, Serum 0.98 mg/dL (0.55-1.02); EST Glomerular Filtration Rate 59 mL/min (>60); Est Glom Filt Rate - Afr Amer 72 mL/min (>60); Globulin 3.6 g/dL (2.2-4.2); Glucose 91 mg/dL (74-106); Potassium 3.5 mmol/L (3.5-5.1); Protein, Total 7.5 g/dL (6.4-8.2); Sodium Level 142 mmol/L (136-145)
== END ==
PROVIDERS: PCP Internal Medicine; Referring Provider Internal Medicine; Visit Provider Internal Medicine
DX: I10 Essential (primary) hypertension (principal); E11.9 Type 2 diabetes mellitus without complications
CPT/HCPCS: 36415; 80053

== ENCOUNTER → 2020-03-01 11:32 | Outpatient (CLI) | payer MEDICARE, SELFPAY ==
[2020-03-01 10:39] VITALS: BMI 29.7
[2020-03-01 13:27] LABS: T4 Free Direct 1.05 ng/dL (0.76-1.46); Thyroid Stim Hormone (TSH) 2.84 uIU/mL (0.358-3.74)
== END ==
PROVIDERS: PCP Internal Medicine; Visit Provider Internal Medicine
DX: G31.84 Mild cognitive impairment of uncertain or unknown etiology (principal); F32.9 Major depressive disorder, single episode, unspecified; F41.9 Anxiety disorder, unspecified
CPT/HCPCS: 84439; 84443

== ENCOUNTER → 2020-10-14 10:19 | Outpatient (CLI) | payer MEDICARE, SELFPAY ==
[2020-10-14 08:40] VITALS: BMI 30.1
[2020-10-14 12:24] LABS: Hematocrit 40.2 % (37-47); Hemoglobin 13.1 g/dL (12.0-15.0); Mean Corp Hgb Conc 32.6 g/dL (32-36); Mean Corpuscular Hgb 30.5 pg (27.0-32.0); Mean Corpuscular Volume 93.7 fL (81-99); Mean Platelet Vol. 9.6 fl (6.2-12.0); Platelet Count 328 K/mm3 (150-450); RBC Distribution Width CV 13.2 % (11.6-14.6); RBC Distribution Width SD 45.5 fl (35.1-43.9); Red Blood Count 4.29 M/mm3 (4.2-5.4); White Blood Count 6.6 K/mm3 (4.4-11.0)
[2020-10-14 12:46] LABS: Vitamin B12 > 2000 pg/mL (211-911)
[2020-10-14 13:15] LABS: ALB/GLOB Ratio 1.1 RATIO (0.9-2.4); AST(SGOT) 18 U/L (15-37); Alanine Aminotransfer ALT/SGPT 24 U/L (13-56); Albumin, Serum 4.2 g/dL (3.2-5.0); Alkaline Phosphatase 80 U/L (45-117); Anion Gap 8 (5-15); BUN 17 mg/dL (7-18); BUN/Creat Ratio 19.2 RATIO (10-20); Calcium,Total 9.5 mg/dL (8.5-10.1); Chloride 103 mmol/L (98-107); Cholesterol 161 mg/dL (200); Creatinine, Serum 0.88 mg/dL (0.55-1.02); EST Glomerular Filtration Rate 66 mL/min (>60); Est Glom Filt Rate - Afr Amer 80 mL/min (>60); Globulin 3.7 g/dL (2.2-4.2); Glucose 103 mg/dL (74-106); High Density Lipoprotein 76 mg/dL; Potassium 3.4 mmol/L (3.5-5.1); Protein, Total 7.9 g/dL (6.4-8.2); Sodium Level 140 mmol/L (136-145); Triglycerides 95 mg/dL; Very Low Density Lipoprotein 19 mg/dL (5-40)
== END ==
PROVIDERS: PCP Internal Medicine; Referring Provider Psychiatry & Neurology Neurology; Visit Provider Psychiatry & Neurology Neurology
DX: I10 Essential (primary) hypertension (principal); F03.90 Unspecified dementia, unspecified severity, without behavioral disturbance, psychotic disturbance, mood disturbance, and anxiety
CPT/HCPCS: 36415; 80053; 80061; 82607; 82746; 84425; 85027

== ENCOUNTER → 2020-11-02 08:21 | Outpatient (CLI) | payer MEDICARE, SELFPAY ==
[2020-11-02 10:25] LABS: Cholesterol 144 mg/dL (200); High Density Lipoprotein 72 mg/dL; Potassium 3.4 mmol/L (3.5-5.1); Thyroid Stim Hormone (TSH) 2.19 uIU/mL (0.358-3.74); Triglycerides 108 mg/dL; Very Low Density Lipoprotein 22 mg/dL (5-40)
== END ==
PROVIDERS: PCP Internal Medicine; Referring Provider Psychiatry & Neurology Neurology; Visit Provider Psychiatry & Neurology Neurology
DX: F03.90 Unspecified dementia, unspecified severity, without behavioral disturbance, psychotic disturbance, mood disturbance, and anxiety (principal); I10 Essential (primary) hypertension; E87.6 Hypokalemia
CPT/HCPCS: 36415; 80061; 84132; 84443

== ENCOUNTER → 2020-11-04 14:18 | Outpatient (CLI) | payer MEDICARE, SELFPAY ==
[2020-10-14 08:40] VITALS: BMI 30.1
--- NOTE | 2020-11-04 14:21 | BI_ITS ---
MAMMOGRAPHY - BILATERAL SCREENING REASON FOR EXAM: Female, 75 years old. Routine annual screening examination. PERTINENT HISTORY: Non-contributory. TECHNIQUE: Digital bilateral breast quiana (3D mammographic acquisition) in the CC and MLO projections. 2-D mediolateral oblique (MLO) and craniocaudad (CC) views of both breasts were obtained. CAD: Full Field Digital Mammography with Computer Added Detection was performed. COMPARISON: Comparison is made with prior examination dated 10/07/2019 and 10/01/2018. FINDINGS: Breast Composition: There are scattered areas of fibroglandular density. There are no dominant masses or suspicious calcifications. No other significant abnormalities are identified. There has been no significant change since the prior study. BI/SCRN MAMM (CAD)W/QUIANA BILAT IMPRESSION: Stable bilateral screening mammogram. Yearly follow-up mammogram recommended. (A) ASSESSMENT CATEGORY: BIRADS Category 1: Negative. A letter regarding these results will be sent to the patient by the facility within 30 days. Approximately 10% of breast cancers are not detected by mammography. A normal mammogram should not delay biopsy of a clinically suspicious abnormality. [id number] Electronically Signed: Bairon Peterson MD at 14:56 EDT , Service support ,
== END ==
PROVIDERS: PCP Internal Medicine; Referring Provider Internal Medicine; Visit Provider Internal Medicine
DX: Z12.31 Encounter for screening mammogram for malignant neoplasm of breast (principal)
CPT/HCPCS: 77063; 77067

== ENCOUNTER → 2021-03-10 | Outpatient (CLI) | payer MEDICARE, SELFPAY | END | disposition home or self-care (01) | PROVIDERS: PCP Internal Medicine; Visit Provider Physician Assistant | DX: U07.1 COVID-19 (principal) | CPT/HCPCS: 87635; U0003; U0005 ==

== ENCOUNTER 2021-04-25 14:07 | Outpatient (CLI) | payer MEDICARE, SELFPAY ==
[2021-04-25 15:29] LABS: Potassium 3.6 mmol/L (3.5-5.1)
== END 2021-04-25 23:59 | disposition home or self-care (01) ==
PROVIDERS: PCP Internal Medicine; Referring Provider Psychiatry & Neurology Neurology; Visit Provider Psychiatry & Neurology Neurology
DX: E87.6 Hypokalemia (principal)
CPT/HCPCS: 36415; 84132

== ENCOUNTER 2021-04-27 05:22 | Day surgery (SDC) | payer MEDICARE, SELFPAY ==
[2021-04-27 06:33] VITALS: BP 132/91; PULSE 69; RESP 16; TEMP 36.9; O2SAT 97; BMI 26.1
[2021-04-27] MEDS: Lactated Ringers 1,000 ML 15 ML IV (06:38)
[2021-04-27 06:46] LABS: Bedside Glucose 104 mg/dL (70-110)
--- NOTE | 2021-04-27 07:00 | IMM_PTH ---
PATIENT: DAVE VALERO LOC: EN U#:[id number] AGE/SX: 75/F ROOM: RE04/27/[address]: Dr. Reynold Henderson DO : 1945 BED: DIS: 04/27/2021 SPEC #: [id number] RECD: 04/28/21 13:46 STATUS: WANDA REQ #: [id number] SURY: 04/27/21 07:[address]: Reynold Henderson DEPT: IMMUNOHISTOCHEMISTRY RECD BY: Barbra Larios ENTERED: 04/28/21 13:48 SP TYPE: IMMUNO OTHR DR: Dr. Desean Cartagena MD Tissues: A - Stomach, NOS C - Esophagus, NOS Procedures: H Pylori (initial) P53 (initial) KI-67 (add) PHYSICIAN & INSTITUTION [facility] [id number] SPECIMEN INFORMATION: Tissue Source: A ? Gastric antrum, C ? Distal esophagus Clinical Info: Constipation, dysphagia Specimen Number: [id number] A & C CPT code: 93424 x2, 16509 METHODOLOGY: Deparaffinized sections of prefer/formalin-fixed tissue or PAP/DQ stained slides are incubated with monoclonal/polyclonal antibodies/oligonucleotide probes. Localization is made via biotin free immunoperoxidase method. Appropriate controls are performed and reacted as expected. Results on target cell population are indicated in the following table: RESULTS: ANTIBODY / CLONE RESULT Block A H Pylori (polyclonal) negative Block C P53 (DO-7) negative Ki-67 (30-9) positive, very low These tests were developed and their performance characteristics determined by [facility]. They may not have been cleared or approved by the U.S. Food and Drug Administration. The FDA has determined that such clearance or approval is not necessary. The above immunohistochemical/dualISH markers are ordered and reviewed by the pathologist. INTERPRETATION: A. Gastric antrum, biopsy: Negative for Helicobacter pylori organisms. C. Distal esophagus, biopsy: Negative for dysplasia. MICHAEL:ashley 04/29/2021
--- NOTE | 2021-04-27 07:00 | EGD_PTH ---
PATIENT: DAVE VALERO LOC: EN U#:[id number] AGE/SX: 75/F ROOM: RE04/27/[address]: Dr. Reynold Henderson DO : 1945 BED: DIS: 04/27/2021 SPEC #: [id number] RECD: 04/27/21 13:38 STATUS: WANDA ROMERO #: [id number] SURY: 04/27/21 07:[address]: Reynold Henderson DEPT: SURGICAL PATHOLOGY RECD BY: Rachel Clarke ENTERED: 04/28/21 07:36 SP TYPE: EGD [facility]OPSY [facility] DR: Dr. Desean Cartaegna MD Tissues: A - Gastric mucous membrane B - Duodenum, NOS C - Esophagus, NOS D - COLON BIOPSY Procedures: Special Stain Group II Surgery Specimen Level IV Alcian Blue/PAS (control) HEADER OPERATION: Colonoscopy, EGD ([facility] [place]) PRE-OP DIAGNOSIS: Constipation, dysphagia TISSUE SUBMITTED: A ? Gastric antrum biopsy for histo and H. pylori, B ? Duodenum biopsy, C ? Distal esophagus biopsy, D ? Random colonic biopsy MICROSCOPIC DIAGNOSIS A. Gastric antrum, biopsy: Moderate gastritis. See microscopic description and comment. B. Duodenum, biopsy: A fragment of duodenal mucosa, no pathologic diagnosis. C. 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 Moderate chronic inflammation. Negative for dysplasia. See comment. D. Colon, random biopsy: Fragments of colonic mucosa, no pathologic diagnosis. SJ:ashley 04/29/2021 COMMENT A. The results of immunohistochemistry for Helicobacter pylori will be reported separately ([id number]). C. Alcian blue/PAS stain with matched control is used in the evaluation of the specimen. Immunohistochemistry ([id number]) for P53 and Ki-67 will be performed and results will be reported separately. MICROSCOPIC DESCRIPTION Slides are reviewed. A. The specimen shows fragments of gastric mucosa with chronic inflammatory cell infiltrates in the lamina propria consisting of lymphocytes and plasma cells, consistent with moderate chronic gastritis. GROSS DESCRIPTION A - Received in fixative is one container labeled with the patient's name and designated antrum biopsy. The specimen consists of multiple irregular fragments of light dawn soft tissue that in aggregate measure 0.5 x 0.5 x 0.1 cm. The specimen is totally submitted in one cassette. B - Received in fixative is one container labeled with the patient's name and designated duodenum biopsy. The specimen consists of one irregular fragment of light dawn soft tissue that measures 0.4 x 0.2 x 0.1 cm. The specimen is totally submitted in one cassette. C - Received in fixative is one container labeled with the patient's name and designated distal esophagus biopsy. The specimen consists of multiple irregular fragments of light dawn soft tissue that in aggregate measure 1.5 x 0.3 x 0.1 cm. The specimen is totally submitted in one cassette. D - Received in fixative is one container labeled with the patient's name and designated random colonic biopsy. The specimen consists of multiple irregular fragments of light dawn soft tissue that in aggregate measure 2 x 0.5 x 0.1 cm. The specimen is totally submitted in one cassette. / SJ:rg 04/28/2021 TC:3 CPT: 85846 x4, 21046
--- NOTE | 2021-04-27 07:01 | PCM.HP.BLA ---
History and Physical Date of Admission: 04/27/21 75 F who presents to the office today for Previously established with Dr. Renner for screening colonoscopy. Recently she has been having difficulty with bowel habit changes for the last 4-5 months, new onset constipation alternating with explosive diarrhea. Denies blood and mucous. Does not recall similar episodes in the past. No home remedies or OTC attempted. Barium swallow performed 05/23/18 with findings of small sliding hiatal hernia without gastric esophageal reflux. 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 ROS Gastro GI: Positive for change in bowel habits Exam Const General: cooperative and comfortable Nutritional Appearance: average body habitus and well nourished HENMT Head: normal to inspection Ears: hearing grossly normal bilaterally Nose: external nose normal Face and sinus: normal facial exam Mouth: oral mucosae normal Throat: posterior oropharynx normal Eyes General: appearance normal, both eyes and all related structures Neck Neck: normal visual inspection Chest Chest palpation & inspection: normal inspection of the chest and normal palpation of entire chest wall Resp Effort & Inspection: normal respiratory effort Auscultation: Bilateral: Clear to Auscultation Cardio Palpation: normal PMI Rate: regular rate Rhythm: regular rhythm GI Inspection: normal to inspection Auscultation: normal bowel sounds Percussion: normal to percussion Palpation: no hepatosplenomegaly Skin General: no rashes or lesions noted Neuro General: patient alert Extrem General: normal to inspection Psych Affect: normal affect Quality Reporting Tobacco Screening ([facility]) Smoking Status: Former smoker Assessment and Plan Assessment and Plan (1) Constipation: Status: Chronic Plan - Dr. Flaherty Friend, DO: It sounds as if she is having overflow incontinence. This could be associated with a colonic stricture or diverticular disease. She should undergo colonoscopy to evaluate her lower GI tract. (2) Dysphagia: Status: Acute Plan - Dr. 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 She should undergo an upper endoscopy evaluate upper GI tract. She was okay with this plan. We went over her imaging extensively. I have re-examined the patient. There are no clinical changes since date of exam.
--- NOTE | 2021-04-27 07:32 | OP.EGD_ITS ---
Patient Name: Polly Slater Procedure Date: 04/27/2021 7:07 AM Date of : 1945 Age: 75 Procedure: Upper GI endoscopy Indications: Dysphagia Providers: Reynold Henderson DO Referring MD: Desean Cartagena MD Medicines: See the Anesthesia note for documentation of the administered medications Patient Profile: This is a 75 year old female. Refer to note in patient chart for documentation of history and physical. Patient has symptoms of chronic dysphagia and dysphagia with both liquids and solids. She is status post colonoscopy (normal) within the past several years. Complications: No immediate complications. Procedure: Pre-Anesthesia Assessment: - Prior to the procedure, a History and Physical was performed, and patient medications and allergies were reviewed. The patient is competent. The risks and benefits of the procedure and the sedation options and risks were discussed with the patient. All questions were answered and informed consent was obtained. Patient identification and proposed procedure were verified by the physician in the pre-procedure area. Mental Status Examination: alert and oriented. Airway Examination: normal oropharyngeal airway and neck mobility. Respiratory Examination: clear to auscultation. CV Examination: normal. Prophylactic Antibiotics: The patient does not require prophylactic antibiotics. Prior Anticoagulants: The patient has taken no previous anticoagulant or antiplatelet agents. ASA Grade Assessment: II - A patient with mild systemic disease. After reviewing the risks and benefits, the patient was deemed in satisfactory condition to undergo the procedure. The anesthesia plan was to use moderate sedation / analgesia (conscious sedation). Immediately prior to administration of medications, the patient was re-assessed for adequacy to receive sedatives. The heart rate, respiratory rate, oxygen saturations, blood pressure, adequacy of pulmonary ventilation, and response to care were monitored throughout the procedure. The physical status of the patient was re-assessed after the procedure. After obtaining informed consent, the endoscope was passed under direct vision. Throughout the procedure, the patient's blood pressure, pulse, and oxygen saturations were monitored continuously. The gastroscope was introduced through the mouth, and advanced to the second part of duodenum. The upper GI endoscopy was accomplished without difficulty. The patient tolerated the procedure well. Moderate Sedation: Moderate (conscious) sedation was administered by the endoscopy nurse and supervised by the endoscopist. The patient's oxygen saturation, heart rate, blood pressure and response to care were monitored. Total physician intraservice time was 15 minutes. Scope In: 7:16:07 AM Scope Out: 7:27:42 AM Total Procedure Duration Time 0 hours 11 minutes 35 seconds Findings: Mucosal changes including ringed esophagus, small-caliber esophagus, circumferential folds and congestion (edema) were found in the lower third of the esophagus. Esophageal findings were graded using the Eosinophilic Esophagitis Endoscopic Reference Score (EoE-EREFS) as: Edema Grade 1 Present (decreased clarity or absence of vascular markings), Rings Grade 2 Moderate (distinct rings that do not occlude passage of diagnostic 8-10 mm endoscope), Exudates Grade 1 Mild (scattered white lesions involving less than 10 percent of the esophageal surface area), Furrows Grade 1 Present (vertical lines with or without visible depth) and Stricture present. Biopsies were obtained from the proximal and distal esophagus with cold forceps for histology of suspected eosinophilic esophagitis. Verification of patient identification for the specimen was done. Estimated blood loss was minimal. A moderate Schatzki ring was found in the middle third of the esophagus. A guidewire was placed and the scope was withdrawn. Dilation was performed with a Savary dilator with no resistance at 60 Fr. The dilation site was examined following endoscope reinsertion and showed moderate improvement in luminal narrowing. Patchy moderate inflammation characterized by congestion (edema), erosions and erythema was found in the gastric antrum. Biopsies were taken with a cold forceps for histology. Verification of patient identification for the specimen was done. Estimated blood loss was minimal. Patchy moderately congested mucosa without active bleeding and with no stigmata of bleeding was found in the second portion of the duodenum. Impression: - Esophageal mucosal changes consistent with eosinophilic esophagitis. Biopsied. - Moderate Schatzki ring. Dilated. - Gastritis. Biopsied. - Congested duodenal mucosa. Recommendation: - Discharge patient to home. - Resume previous diet. - Continue present medications. - Await pathology results. - Return to my office. Procedure Code(s): --- Professional --- 39322, Esophagogastroduodenoscopy, flexible, transoral; with insertion of guide wire followed by passage of dilator(s) through esophagus over guide wire 44801, 59, Esophagogastroduodenoscopy, flexible, transoral; with biopsy, single or multiple 57664, 59, Moderate sedation services provided by the same physician or other qualified health client care coordinator performing the diagnostic or therapeutic service that the sedation supports, requiring the presence of an independent trained observer to assist in the monitoring of the patient's level of consciousness and physiological status; initial 15 minutes of intraservice time, patient age 5 years or older CPT copyright 2017 [employer]. All rights reserved. The codes documented in this report are preliminary and upon flume maker review may be revised to meet current compliance requirements. Reynold Henderson DO 04/27/2021 7:31:58 AM This report has been signed electronically. Number of Addenda: 1 Note Initiated On: 04/27/2021 7:07 AM Addendum Number: 1 Addendum Date: 11/28/2021 6:47:26 AM MAC was used for sedation during this procedure. Reynold Henderson DO 11/28/2021 6:47:30 AM This report has been signed electronically.
--- NOTE | 2021-04-27 07:33 | OP.CCLET_ITS ---
11/28/2021 Desean Cartagena MD [address] [place] [address] [place] [address] Re : Upper GI endoscopy procedure for Polly Slater Dear Dr. Cartagena This procedure was performed on Tuesday, April 27, 2021. My impressions and recommendations are as follows: Impressions : - Esophageal mucosal changes consistent with eosinophilic esophagitis. Biopsied. - Moderate Schatzki ring. Dilated. - Gastritis. Biopsied. - Congested duodenal mucosa. Recommendations : - Discharge patient to home. - Resume previous diet. - Continue present medications. - Await pathology results. - Return to my office. My findings are described in the full procedure note, which is enclosed. If I can be of further assistance, please feel free to contact me at . Sincerely, Reynold Henderson, 04/27/2021 7:31:58 AM This report has been signed electronically.
[2021-04-27 08:00] VITALS: BP 116/63; BP 132/91; PULSE 62; RESP 15; TEMP 36.1
--- NOTE | 2021-04-27 08:02 | OP.CCLET_ITS ---
11/28/2021 Desean Cartagena MD [address] [place] [address] [place] [address] Re : Colonoscopy procedure for Polly Slater Dear Dr. Cartagena This procedure was performed on Tuesday, April 27, 2021. My impressions and recommendations are as follows: Impressions : - Decreased sphincter tone and rectal prolapse found on digital rectal exam. - Congested mucosa in the sigmoid colon, at the splenic flexure, at the hepatic flexure and in the ascending colon. Biopsied. - Diverticulosis in the recto-sigmoid colon, in the sigmoid colon and in the transverse colon. There was no evidence of diverticular bleeding. - Stricture in the sigmoid colon. Recommendations : - Discharge patient to home. - Resume previous diet. - Continue present medications. - Await pathology results. - Repeat colonoscopy in 10 years for surveillance. - Return to GI office. My findings are described in the full procedure note, which is enclosed. If I can be of further assistance, please feel free to contact me at . Sincerely, Reynold Henderson, 04/27/2021 8:01:42 AM This report has been signed electronically.
--- NOTE | 2021-04-27 08:02 | OP.COLON_ITS ---
Patient Name: Polly Slater Procedure Date: 04/27/2021 7:34 AM Date of : 1945 Age: 75 Procedure: Colonoscopy Indications: Screening for colorectal malignant neoplasm Providers: Reynold Henderson DO Referring MD: Desean Cartagena MD Medicines: See the Anesthesia note for documentation of the administered medications Patient Profile: This is a 75 year old female. Refer to note in patient chart for documentation of history and physical. Patient has symptoms of chronic dysphagia and dysphagia with both liquids and solids. She is status post colonoscopy (normal) within the past several years. She is status post colonoscopy (normal) in the distant past. Last Colonoscopy: 10 years ago. Complications: No immediate complications. Procedure: Pre-Anesthesia Assessment: - Prior to the procedure, a History and Physical was performed, and patient medications and allergies were reviewed. The patient is competent. The risks and benefits of the procedure and the sedation options and risks were discussed with the patient. All questions were answered and informed consent was obtained. Patient identification and proposed procedure were verified by the physician in the pre-procedure area. Mental Status Examination: alert and oriented. Airway Examination: normal oropharyngeal airway and neck mobility. Respiratory Examination: clear to auscultation. CV Examination: normal. Prophylactic Antibiotics: The patient does not require prophylactic antibiotics. Prior Anticoagulants: The patient has taken no previous anticoagulant or antiplatelet agents. ASA Grade Assessment: II - A patient with mild systemic disease. After reviewing the risks and benefits, the patient was deemed in satisfactory condition to undergo the procedure. The anesthesia plan was to use moderate sedation / analgesia (conscious sedation). Immediately prior to administration of medications, the patient was re-assessed for adequacy to receive sedatives. The heart rate, respiratory rate, oxygen saturations, blood pressure, adequacy of pulmonary ventilation, and response to care were monitored throughout the procedure. The physical status of the patient was re-assessed after the procedure. After I obtained informed consent, the scope was passed under direct vision. Throughout the procedure, the patient's blood pressure, pulse, and oxygen saturations were monitored continuously. The Colonoscope was introduced through the anus and advanced to the cecum, identified by the appendiceal orifice, ileocecal valve and palpation. The colonoscopy was performed without difficulty. The patient tolerated the procedure well. The quality of the bowel preparation was good. Moderate Sedation: Moderate (conscious) sedation was administered by the endoscopy nurse and supervised by the endoscopist. The patient's oxygen saturation, heart rate, blood pressure and response to care were monitored. Total physician intraservice time was 15 minutes. Scope In: 7:35:17 AM Scope Withdrawal Time 0 hours 10 minutes 56 seconds Scope Out: 7:55:18 AM Total Procedure Duration Time 0 hours 20 minutes 1 second Findings: The digital rectal exam findings include decreased sphincter tone and rectal prolapse. An area of mildly congested mucosa was found in the sigmoid colon, at the splenic flexure, at the hepatic flexure and in the ascending colon. Biopsies were taken with a cold forceps for histology. Verification of patient identification for the specimen was done. Estimated blood loss was minimal. A few small and large-mouthed diverticula were found in the recto-sigmoid colon, sigmoid colon and transverse colon. There was no evidence of diverticular bleeding. A benign-appearing, intrinsic mild stenosis measuring 2 cm (in length) was found in the sigmoid colon and was traversed. Impression: - Decreased sphincter tone and rectal prolapse found on digital rectal exam. - Congested mucosa in the sigmoid colon, at the splenic flexure, at the hepatic flexure and in the ascending colon. Biopsied. - Diverticulosis in the recto-sigmoid colon, in the sigmoid colon and in the transverse colon. There was no evidence of diverticular bleeding. - Stricture in the sigmoid colon. Recommendation: - Discharge patient to home. - Resume previous diet. - Continue present medications. - Await pathology results. - Repeat colonoscopy in 10 years for surveillance. - Return to GI office. Procedure Code(s): --- Professional --- 15434, Colonoscopy, flexible; with biopsy, single or multiple 05249, 59, Moderate sedation services provided by the same physician or other qualified health childcare attendant performing the diagnostic or therapeutic service that the sedation supports, requiring the presence of an independent trained observer to assist in the monitoring of the patient's level of consciousness and physiological status; initial 15 minutes of intraservice time, patient age 5 years or older CPT copyright 2017 [employer]. All rights reserved. The codes documented in this report are preliminary and upon quarter supervisor review may be revised to meet current compliance requirements. Reynold Henderson DO 04/27/2021 8:01:42 AM This report has been signed electronically. Number of Addenda: 1 Note Initiated On: 04/27/2021 7:34 AM Addendum Number: 1 Addendum Date: 11/28/2021 6:47:38 AM MAC was used for sedation during this procedure. Reynold Henderson DO 11/28/2021 6:47:42 AM This report has been signed electronically.
[2021-04-27 08:05] VITALS: BP 123/60; BP 132/91; PULSE 58; RESP 16; O2SAT 98
[2021-04-27 08:10] VITALS: BP 125/62; BP 132/91; PULSE 63; RESP 16; O2SAT 98
[2021-04-27 08:15] VITALS: BP 127/70; BP 132/91; PULSE 60; RESP 16; TEMP 36.1; O2SAT 99
[2021-04-27 08:28] VITALS: BP 132/91
== END 2021-04-27 23:59 | disposition home or self-care (01) ==
LOC: EN 05:22 → AC 05:23
PROVIDERS: PCP Internal Medicine; Referring Provider Internal Medicine; Visit Provider Internal Medicine Gastroenterology
PROC: 0DJD8ZZ Inspection of Lower Intestinal Tract, Via Natural or Artificial Opening Endoscopic (ICD-10-PCS; CPT 45378; principal; 2021-04-27 06:55)
DX: Z12.11 Encounter for screening for malignant neoplasm of colon (principal); F03.90 Unspecified dementia, unspecified severity, without behavioral disturbance, psychotic disturbance, mood disturbance, and anxiety; K56.609 Unspecified intestinal obstruction, unspecified as to partial versus complete obstruction; E11.9 Type 2 diabetes mellitus without complications; K22.70 Barrett's esophagus without dysplasia; K57.30 Diverticulosis of large intestine without perforation or abscess without bleeding; K29.70 Gastritis, unspecified, without bleeding; Z87.891 Personal history of nicotine dependence; K22.2 Esophageal obstruction; F32.A Depression, unspecified; E78.5 Hyperlipidemia, unspecified; I10 Essential (primary) hypertension; G47.30 Sleep apnea, unspecified; E55.9 Vitamin D deficiency, unspecified; Z86.16 Personal history of COVID-19; F41.9 Anxiety disorder, unspecified; Z85.828 Personal history of other malignant neoplasm of skin; Z79.84 Long term (current) use of oral hypoglycemic drugs; Z79.82 Long term (current) use of aspirin; Z79.899 Other long term (current) drug therapy; K62.3 Rectal prolapse
CPT/HCPCS: G0121; 43248; 43239; 82962; 88305; 88313; 88341; 88342; J7120; C1769; J2405

== ENCOUNTER 2021-05-02 11:07 | Outpatient (CLI) | payer MEDICARE, SELFPAY ==
[2021-05-02 12:16] LABS: Absolute Lymphocyte Count 1.49 X10^3/uL (0.83-4.51); Absolute Neutrophil Count 4.4 X10^3/uL (2.0-7.7); Basophil# 0.06 X10^3/uL; Basophil% 0.9 % (0-1); Eosinophil# 0.23 X10^3/uL; Eosinophils% 3.5 % (0-5); Hematocrit 37.2 % (37-47); Hemoglobin 12.4 g/dL (12.0-15.0); Lymphocyte # 1.49 X10^3/ul (0.83-4.51); Lymphocyte % 22.6 % (19-41); Mean Corp Hgb Conc 33.3 g/dL (32-36); Mean Corpuscular Hgb 30.5 pg (27.0-32.0); Mean Corpuscular Volume 91.6 fL (81-99); Mean Platelet Vol. 9.7 fl (6.2-12.0); Monocyte# 0.46 X10^3/uL; NRBC Flagged by Analyzer 0 % (0-5); Neutrophil # 4.35 X10^3/uL (2.7-7.7); Neutrophil % 65.8 % (47-70); Platelet Count 327 K/mm3 (150-450); RBC Distribution Width SD 43.9 fl (35.1-43.9); Red Blood Count 4.06 M/mm3 (4.2-5.4); White Blood Count 6.6 K/mm3 (4.4-11.0)
[2021-05-02 13:00] LABS: Anion Gap 7 (5-15); BUN 19 mg/dL (7-18); BUN/Creat Ratio 19.9 RATIO (10-20); Calcium,Total 9.6 mg/dL (8.5-10.1); Chloride 104 mmol/L (98-107); Creatinine, Serum 0.95 mg/dL (0.55-1.02); EST Glomerular Filtration Rate 61 mL/min (>60); Est Glom Filt Rate - Afr Amer 74 mL/min (>60); Glucose 96 mg/dL (74-106); Potassium 3.4 mmol/L (3.5-5.1); Sodium Level 140 mmol/L (136-145)
== END 2021-05-02 23:59 | disposition home or self-care (01) ==
LOC: BIMLAB 11:08
PROVIDERS: PCP Internal Medicine; Visit Provider Internal Medicine
DX: E11.9 Type 2 diabetes mellitus without complications (principal); I10 Essential (primary) hypertension; E87.6 Hypokalemia
CPT/HCPCS: 36415; 80048; 85025

== ENCOUNTER → 2021-09-16 | Outpatient (CLI) | payer MEDICARE, SELFPAY ==
[2021-09-16 11:38] LABS: Absolute Lymphocyte Count 1.77 X10^3/uL (0.83-4.51); Absolute Neutrophil Count 3.6 X10^3/uL (2.0-7.7); Basophil# 0.05 X10^3/uL; Basophil% 0.8 % (0-1); Eosinophil# 0.28 X10^3/uL; Eosinophils% 4.5 % (0-5); Hematocrit 38.9 % (37-47); Hemoglobin 13.1 g/dL (12.0-15.0); Lymphocyte # 1.77 X10^3/ul (0.83-4.51); Lymphocyte % 28.4 % (19-41); Mean Corp Hgb Conc 33.7 g/dL (32-36); Mean Corpuscular Hgb 30.3 pg (27.0-32.0); Mean Corpuscular Volume 89.8 fL (81-99); Mean Platelet Vol. 9.5 fl (6.2-12.0); Monocyte# 0.51 X10^3/uL; Monocyte% 8.2 % (0-10); NRBC Flagged by Analyzer 0 % (0-5); Neutrophil # 3.62 X10^3/uL (2.7-7.7); Neutrophil % 57.9 % (47-70); Platelet Count 292 K/mm3 (150-450); RBC Distribution Width CV 12.7 % (11.6-14.6); RBC Distribution Width SD 41.6 fl (35.1-43.9); Red Blood Count 4.33 M/mm3 (4.2-5.4); White Blood Count 6.2 K/mm3 (4.4-11.0)
[2021-09-16 12:17] LABS: ALB/GLOB Ratio 1.2 RATIO (0.9-2.4); AST(SGOT) 21 U/L (15-37); Alanine Aminotransfer ALT/SGPT 21 U/L (13-56); Albumin, Serum 4.1 g/dL (3.2-5.0); Alkaline Phosphatase 80 U/L (45-117); Anion Gap 5 (5-15); BUN 15 mg/dL (7-18); BUN/Creat Ratio 16.1 RATIO (10-20); Chloride 104 mmol/L (98-107); Cholesterol 142 mg/dL (200); Creatinine, Serum 0.93 mg/dL (0.55-1.02); EST Glomerular Filtration Rate 62 mL/min (>60); Est Glom Filt Rate - Afr Amer 76 mL/min (>60); Globulin 3.5 g/dL (2.2-4.2); Glucose 95 mg/dL (74-106); High Density Lipoprotein 73 mg/dL; Potassium 4.1 mmol/L (3.5-5.1); Protein, Total 7.6 g/dL (6.4-8.2); Sodium Level 140 mmol/L (136-145); T4 Free Direct 1.05 ng/dL (0.76-1.46); Thyroid Stim Hormone (TSH) 1.72 uIU/mL (0.358-3.74); Triglycerides 102 mg/dL; Very Low Density Lipoprotein 20 mg/dL (5-40)
[2021-09-18 14:40] LABS: Immunoglobulin A 189 mg/dL (64-422)
[2021-09-19 17:33] LABS: Endomysial Antibody IgA Negative (Negative)
[2021-09-19 20:06] LABS: Immunoglobulin A 198 mg/dL (64-422); t-Transglutaminase IgA <2 U/mL (0-3)
== END | disposition home or self-care (01) ==
LOC: BIMLAB 10:09
PROVIDERS: Internal Medicine Gastroenterology; PCP Internal Medicine; Referring Provider Internal Medicine; Visit Provider Internal Medicine
DX: K52.9 Noninfective gastroenteritis and colitis, unspecified (principal); E11.9 Type 2 diabetes mellitus without complications; I10 Essential (primary) hypertension; K29.60 Other gastritis without bleeding
CPT/HCPCS: 36415; 80053; 80061; 82784; 83516; 84439; 84443; 85025; 86255

== ENCOUNTER → 2021-09-17 | Outpatient (CLI) | payer MEDICARE, SELFPAY | END | disposition home or self-care (01) | LOC: LAB 10:43 | PROVIDERS: PCP Internal Medicine; Referring Provider Internal Medicine; Visit Provider Internal Medicine | DX: K52.9 Noninfective gastroenteritis and colitis, unspecified (principal) | CPT/HCPCS: 87493 ==

== ENCOUNTER 2021-10-05 16:32 | Outpatient (CLI) | payer MEDICARE, SELFPAY ==
[2021-10-10 21:00] LABS: Calprotectin, Stool 25 ug/g (0-120)
[2021-10-12 17:44] LABS: Pancreatic Elastase, Fecal > 500 (>200)
== END 2021-10-05 23:59 | disposition home or self-care (01) ==
LOC: LABSPEC 16:33
PROVIDERS: PCP Internal Medicine; Referring Provider Internal Medicine Gastroenterology; Visit Provider Internal Medicine Gastroenterology
DX: R19.7 Diarrhea, unspecified (principal); K58.9 Irritable bowel syndrome, unspecified; A49.8 Other bacterial infections of unspecified site
CPT/HCPCS: 82653; 83630; 83993; 87177; 87209; 87493; 87506

== ENCOUNTER → 2021-11-07 | Outpatient (CLI) | payer MEDICARE, SELFPAY ==
--- NOTE | 2021-11-07 09:59 | BI_ITS ---
MAMMOGRAPHY - BILATERAL SCREENING REASON FOR EXAM: Female, 76 years old. Routine annual screening examination. PERTINENT HISTORY: Non-contributory. TECHNIQUE: Digital bilateral breast quiana (3D mammographic acquisition) in the CC and MLO projections. 2-D mediolateral oblique (MLO) and craniocaudad (CC) views of both breasts were obtained. CAD: Full Field Digital Mammography with Computer Added Detection was performed. COMPARISON: Comparison is made with prior study dated 11/04/2020 and 10/07/2011. FINDINGS: Breast Composition: The breasts are heterogeneously dense, which may obscure small masses. There are no dominant masses or suspicious calcifications. No other significant abnormalities are identified. There has been no significant change since the prior study. BI/SCRN MAMM (CAD)W/QUIANA BILAT IMPRESSION: Stable bilateral screening mammogram. Yearly follow-up mammogram recommended. (A) ASSESSMENT CATEGORY: BIRADS Category 1: Negative. A letter regarding these results will be sent to the patient by the facility within 30 days. Approximately 10% of breast cancers are not detected by mammography. A normal mammogram should not delay biopsy of a clinically suspicious abnormality. [id number] Electronically Signed: Bairon Peterson MD at 10:40 EDT ,
== END | disposition home or self-care (01) ==
LOC: OPBI 09:55
PROVIDERS: PCP Internal Medicine; Visit Provider Internal Medicine
DX: Z12.31 Encounter for screening mammogram for malignant neoplasm of breast (principal)
CPT/HCPCS: 77063; 77067

== ENCOUNTER → 2022-01-04 | Outpatient (CLI) | payer MEDICARE, SELFPAY ==
[2022-01-07 12:19] LABS: H. PYLORI STOOL AG Negative (Negative)
== END | disposition home or self-care (01) ==
PROVIDERS: Internal Medicine Gastroenterology; PCP Internal Medicine; Referring Provider Nurse Practitioner Adult Health; Visit Provider Nurse Practitioner Adult Health
DX: K52.9 Noninfective gastroenteritis and colitis, unspecified (principal); K29.60 Other gastritis without bleeding
CPT/HCPCS: 87338; 87493

== ENCOUNTER → 2022-04-10 | Outpatient (CLI) | payer MEDICARE, SELFPAY ==
[2022-04-10 12:06] LABS: Absolute Neutrophil Count 3.3 X10^3/uL (2.0-7.7); Basophil# 0.03 X10^3/uL; Basophil% 0.5 % (0-1); Eosinophil# 0.26 X10^3/uL; Eosinophils% 4.7 % (0-5); Hemoglobin 12.3 g/dL (12.0-15.0); Mean Corp Hgb Conc 31.5 g/dL (32-36); Mean Corpuscular Hgb 29.5 pg (27.0-32.0); Mean Corpuscular Volume 93.5 fL (81-99); Mean Platelet Vol. 9.6 fl (6.2-12.0); Monocyte# 0.58 X10^3/uL; Monocyte% 10.4 % (0-10); NRBC Flagged by Analyzer 0 % (0-5); Platelet Count 296 K/mm3 (150-450); RBC Distribution Width CV 12.5 % (11.6-14.6); RBC Distribution Width SD 42.9 fl (35.1-43.9); Red Blood Count 4.17 M/mm3 (4.2-5.4); White Blood Count 5.6 K/mm3 (4.4-11.0)
[2022-04-10 12:22] LABS: Anion Gap 5 (5-15); BUN 19 mg/dL (7-18); BUN/Creat Ratio 18.4 RATIO (10-20); Calcium,Total 9.3 mg/dL (8.5-10.1); Chloride 104 mmol/L (98-107); Creatinine, Serum 1.03 mg/dL (0.55-1.02); EST Glomerular Filtration Rate 56 mL/min (>60); Est Glom Filt Rate - Afr Amer 67 mL/min (>60); Glucose 71 mg/dL (74-106); Potassium 3.7 mmol/L (3.5-5.1); Sodium Level 141 mmol/L (136-145)
[2022-04-10 12:26] LABS: Vitamin D,25 Hydroxy 40.8 ng/mL
== END | disposition home or self-care (01) ==
LOC: BIMLAB 10:10
PROVIDERS: PCP Internal Medicine; Visit Provider Internal Medicine
DX: I10 Essential (primary) hypertension (principal); E55.9 Vitamin D deficiency, unspecified
CPT/HCPCS: 36415; 80048; 82306; 85025

== ENCOUNTER 2022-04-27 05:44 | Day surgery (SDC) | payer MEDICARE, SELFPAY ==
[2022-04-27] MEDS: Lactated Ringers 1,000 ML 15 ML IV (06:24)
[2022-04-27 06:25] VITALS: BP 133/75; PULSE 68; RESP 18; TEMP 36.7; O2SAT 98; BMI 24.1
--- NOTE | 2022-04-27 06:29 | PCM.HP.BLA ---
History and Physical Date of Admission: 04/27/22 POLLY VALERO, is a 76 F who presents to the office today for 2 month f/u diarrhea. She is unaccompanied at today's appt. Hx of C diff (in 09/2021) so we rechecked her for C diff in 12/2021, that was negative. At her last visit we increased colestipol to BID dosing since her diarrhea had improved on colestipol once a day. She does report improvement--no longer having watery stools. She has intermittent bouts of diarrhea that is partially formed and partially loose, that occurs after churning and discomfort in the abd, the discomfort is relieved with BM. These episodes occur 0-2x per week. Then uses Preparation H or Tucks pads because of anal discomfort following diarrhea. She continues metamucil daily and probiotic. No constipation. Appetite is good. She denies heartburn or acid reflux. She is no longer on PPI. 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 She has upcoming appt with billing coordinator Dr Medellin for hoarse voice. She has dementia. Polly established with this clinic 02.17.21 for alternating constipation and urgent diarrhea with incontinence starting mid-2020. Barium swallow performed 05.23.18 with findings of small sliding hiatal hernia without gastric esophageal reflux. 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 EGD and colonoscopy performed 04.27.21. EGD found esophageal changes consistent with eosinophilic esophagitis; moderate Schatzki consistent with Henson?s esophagus Ki-67 positive and chronic inflammation. H.Pylori negative. Colonoscopy found decreased sphincter tone and rectal prolapse; congested mucosa in sigmoid colon, splenic flexure, hepatic flexure and ascending colon; diverticulosis in recto-sigmoid, sigmoid and transverse colon without evidence of bleed; stricture of sigmoid colon. Biopsies without pathologic diagnosis. Colorectal surgery seen for rectal prolapse who recommended pelvic floor therapy for Grade 2 Rectal Prolapse. ROS Const Constitutional: Positive for fatigue and weight change ENT ENT: Positive for difficulty swallowing Gastro GI: Positive for change in bowel habits, diarrhea and difficulty swallowing; No abdominal pain, belching, bloating, change in stool character, coffee ground emesis, constipation, cramping, heartburn, feeling full early, excessive flatus, incontinent of stools, Vomiting blood/hematemesis, Blood in stool, loose stools, Black,tarry stools, nausea/dyspepsia, pain with swallowing, vomiting or other Musc Musculoskeletal: Positive for leg pain at night; No joint pain Skin Skin: No yellowing of the eye or itchy eyes Psych Psychiatric: Positive for anxiety and Positive for depression Endo Endocrine: Positive for fatigue and weight change Aller/Imm Allergy/Immunologic: No itchy eyes Augie/Lymp Hematologic/Lymphatic: No easy bleeding or easy bruising Exam Const General: cooperative, healthy appearing and anxious Nutritional Appearance: average body habitus Orientation: alert, awake and oriented x3 HENMT Head: normal to inspection Eyes Sclera: sclerae normal Resp Effort & Inspection: normal respiratory effort GI Inspection: normal to inspection Quality Reporting Tobacco Screening ([facility] 138) Smoking Status: Former smoker Assessment and Plan Assessment and Plan (1) Irritable bowel syndrome with diarrhea: ?Status:?Acute ?Plan: Post-infectious IBS. Diarrhea is much less severe and less frequent. Reassurance provided. Continue colestipol 1 gram BID, increase metamucil to bulk up stool. Continue probiotic indefinitely due to hx of C diff. (2) Henson esophagus: ?Status:?Acute ?Plan: She is no longer taking PPI. We may need to have her resume PPI therapy but I thought reintroducing it today would be too confusing. We will schedule her for f/u EGD to reevaluate for Henson's. Office f/u 2 wks after EGD. ? ? ? Medications: Discontinued loperamide (Imodium A-D) ?? Discontinued Reason:? Pt no longer taking 2 mg? PO Q6H PRN ? ? I have examined the patient and the H&P has been reviewed. There are no clinical changes since date of exam.
--- NOTE | 2022-04-27 07:00 | EGD_PTH ---
PATIENT: DAVE VALERO LOC: EN U#:[id number] AGE/SX: 76/F ROOM: RE04/27/[address]: Dr. Reynold Henderson DO : 1945 BED: DIS: 04/27/2022 SPEC #: [id number] RECD: 04/27/22 13:35 STATUS: WANDA REMaicol #: [id number] SURY: 04/27/22 07:[address]: Reynold Henderson DEPT: SURGICAL PATHOLOGY RECD BY: Rachel Clarek ENTERED: 04/27/22 14:04 SP TYPE: EGD BIOPSY OT DR: Dr. Desean Cartagena MD Tissues: Esophagus, NOS Procedures: Special Stain Group II Surgery Specimen Level IV Alcian Blue/PAS (control) HEADER OPERATION: EGD ([facility]) with biopsies and dilation PRE-OP DIAGNOSIS: Irritable bowel syndrome with diarrhea; Henson?s esophagus TISSUE SUBMITTED: Distal esophagus biopsy MICROSCOPIC DIAGNOSIS Distal esophagus, biopsy: Fragments of gastroesophageal mucosa with chronic inflammation. Intestinal metaplasia (goblet cell metaplasia) not identified. See comment. MICHAEL:ashley 04/28/2022 COMMENT Alcian blue/PAS stain with matched control is used in the evaluation of the specimen. MICROSCOPIC DESCRIPTION Slides are reviewed. GROSS DESCRIPTION Received in fixative is one container labeled with the patient's name and designated distal esophagus biopsy. The specimen consists of multiple irregular fragments of light dawn soft tissue that in aggregate measure 1.5 x 0.5 x 0.1 cm. The specimen is totally submitted in one cassette. / MICHAEL:ashley 04/27/2022 TC:3 CPT: 90488, 24921
[2022-04-27 07:05] LABS: Bedside Glucose 85 mg/dL (74-106)
[2022-04-27 07:15] VITALS: BP 133/75; BP 134/84; PULSE 64; RESP 16; TEMP 36.4; O2SAT 95
[2022-04-27 07:20] VITALS: BP 123/80; BP 133/75; PULSE 71; RESP 16; O2SAT 95
--- NOTE | 2022-04-27 07:21 | OP.EGD_ITS ---
Patient Name: Polly Slater Procedure Date: 04/27/2022 6:52 AM Date of : 1945 Age: 76 Procedure: Upper GI endoscopy Indications: Dysphagia, Follow-up of Henson's esophagus Providers: Reynold Henderson DO Medicines: Monitored Anesthesia Care Patient Profile: This is a 76 year old female. Refer to note in patient chart for documentation of history and physical. Patient has symptoms of chronic dysphagia. Complications: No immediate complications. Procedure: Pre-Anesthesia Assessment: - Prior to the procedure, a History and Physical was performed, and patient medications and allergies were reviewed. The patient is competent. The risks and benefits of the procedure and the sedation options and risks were discussed with the patient. All questions were answered and informed consent was obtained. Patient identification and proposed procedure were verified by the physician in the pre-procedure area. Mental Status Examination: alert and oriented. Airway Examination: normal oropharyngeal airway and neck mobility. Respiratory Examination: clear to auscultation. CV Examination: normal. Prophylactic Antibiotics: The patient does not require prophylactic antibiotics. Prior Anticoagulants: The patient has taken no previous anticoagulant or antiplatelet agents. After reviewing the risks and benefits, the patient was deemed in satisfactory condition to undergo the procedure. The anesthesia plan was to use monitored anesthesia care (MAC). Immediately prior to administration of medications, the patient was re-assessed for adequacy to receive sedatives. The heart rate, respiratory rate, oxygen saturations, blood pressure, adequacy of pulmonary ventilation, and response to care were monitored throughout the procedure. The physical status of the patient was re-assessed after the procedure. After obtaining informed consent, the endoscope was passed under direct vision. Throughout the procedure, the patient's blood pressure, pulse, and oxygen saturations were monitored continuously. The gastroscope was introduced through the mouth, and advanced to the second part of duodenum. The upper GI endoscopy was accomplished without difficulty. The patient tolerated the procedure well. Scope In: 6:59:37 AM Scope Out: 7:08:31 AM Total Procedure Duration Time 0 hours 8 minutes 54 seconds Findings: The Z-line was irregular and was found 39 cm from the incisors. Biopsies were taken with a cold forceps for histology. Verification of patient identification for the specimen was done. Estimated blood loss was minimal. A moderate Schatzki ring was found in the lower third of the esophagus. A guidewire was placed and the scope was withdrawn. Dilation was performed with a Savary dilator with no resistance at 60 Fr. The dilation site was examined and showed moderate improvement in luminal narrowing. Estimated blood loss was minimal. No gross lesions were noted in the entire examined stomach. The cardia and gastric fundus were normal on retroflexion. The second portion of the duodenum was normal. Impression: - Z-line irregular, 39 cm from the incisors. Biopsied. - Moderate Schatzki ring. Dilated. - No gross lesions in the stomach. - Normal second portion of the duodenum. Recommendation: - Discharge patient to home. - Resume previous diet. - Continue present medications. - Await pathology results. Procedure Code(s): --- Professional --- 57061, Esophagogastroduodenoscopy, flexible, transoral; with insertion of guide wire followed by passage of dilator(s) through esophagus over guide wire 97196, 59, Esophagogastroduodenoscopy, flexible, transoral; with biopsy, single or multiple CPT copyright 2017 [employer]. All rights reserved. The codes documented in this report are preliminary and upon needle loom operator review may be revised to meet current compliance requirements. Reynold Henderson DO 04/27/2022 7:21:32 AM This report has been signed electronically. Number of Addenda: 0 Note Initiated On: 04/27/2022 6:52 AM
--- NOTE | 2022-04-27 07:22 | OP.CCLET_ITS ---
04/27/2022 Desean Cartagena MD [address] [place] [address] [place] [address] Re : Upper GI endoscopy procedure for Polly Slater Dear Dr. Cartagena This procedure was performed on April. My impressions and recommendations are as follows: Impressions : - Z-line irregular, 39 cm from the incisors. Biopsied. - Moderate Schatzki ring. Dilated. - No gross lesions in the stomach. - Normal second portion of the duodenum. Recommendations : - Discharge patient to home. - Resume previous diet. - Continue present medications. - Await pathology results. My findings are described in the full procedure note, which is enclosed. If I can be of further assistance, please feel free to contact me at . Sincerely, Reynold Henderson, 04/27/2022 7:21:32 AM This report has been signed electronically.
[2022-04-27 07:25] VITALS: BP 133/75; BP 139/81; PULSE 64; RESP 16; O2SAT 95
[2022-04-27 07:30] VITALS: BP 133/75; BP 138/77; PULSE 63; RESP 16; TEMP 36.1; O2SAT 98
[2022-04-27 07:51] VITALS: BP 133/75; BP 138/77; PULSE 63; RESP 16; TEMP 36.1; O2SAT 98
== END 2022-04-27 08:18 | disposition home or self-care (01) ==
LOC: EN 05:45 → AC 05:45
PROVIDERS: PCP Internal Medicine; Referring Provider Internal Medicine; Visit Provider Internal Medicine Gastroenterology
PROC: 0DJ08ZZ Inspection of Upper Intestinal Tract, Via Natural or Artificial Opening Endoscopic (ICD-10-PCS; CPT 43235; principal; 2022-04-27 06:55)
DX: K22.70 Barrett's esophagus without dysplasia (principal); F03.90 Unspecified dementia, unspecified severity, without behavioral disturbance, psychotic disturbance, mood disturbance, and anxiety; K62.3 Rectal prolapse; Z87.891 Personal history of nicotine dependence; R13.10 Dysphagia, unspecified; K58.0 Irritable bowel syndrome with diarrhea
CPT/HCPCS: 43239; 43248; 82962; 88305; 88313; J7120; C1769

== ENCOUNTER → 2022-05-03 | Outpatient (CLI) | payer MEDICARE, SELFPAY ==
--- NOTE | 2022-05-03 09:48 | BD_ITS ---
STUDY: DUAL ENERGY X-RAY ABSORPTIOMETRY / DXA REASON FOR EXAM: Female, 76 years old. Post menopausal TECHNIQUE: Bone Mineral Density (BMD) measurements of lumbar spine and bilateral hips were obtained. COMPARISON: Comparison is made with prior study dated 03/26/2018. FINDINGS: Lumbar Spine (L1-L4): g/cm2 (0.953) / T-score (-0.9) / Z-score (1.5) Findings are suggestive of normal bone density with a low fracture risk. Left Femur Total: g/cm2 (0.969) / T-score (0.2) / Z-score (2.0) Left Femoral Neck: g/cm2 (0.871) / T-score (0.2) / Z-score (2.3) Right Femur Total: g/cm2 (0.902) / T-score (-0.3) / Z-score (1.4) Right Femoral Neck: g/cm2 (0.783) / T-score (-0.6) / Z-score (1.5) The T-Scores on the most recent prior examination were: Lumbar Spine (L1-L4): There has been worsening of bone density since the previous examination. Left Femur Total: which represents a worsening of 11.9%. Right Femur Total: which represents a worsening of 9.9%. BD/Dexa Bone Density Study IMPRESSION: The patient is considered normal as outlined below according to [employer] [place] Organization (WHO) criteria with a low fracture risk. There has been worsening of bone density since the previous examination. Reference Information: The T-score is the number of standard deviations above or below the standard which is normal for young adults at their peak bone mineral density. The World Health Organization (WHO) interprets the T-scores as follows: Above -1 Normal bone density Between -1 and -2.5 Osteopenia Equal to / or below -2.5 Osteoporosis As a practical clinical guideline, osteopenia may be graded as follows: Mild -1 through -1.5 Moderate -1.6 through -2.0 Severe -2.1 through -2.4 The Z-score is the number of standard deviations above or below age-matched controls. A Z-score of less than -1.5 would be considered abnormal. References: 1. NIH Osteoporosis and Related Bone Diseases www osteo.org 2. International Society for Clinical Densitometry www iscd.org 3. National Osteoporosis Foundation www nof.org Electronically Signed: Bairon Peterson MD at 8:20 EST ,
== END | disposition home or self-care (01) ==
LOC: OPBD 09:01
PROVIDERS: PCP Internal Medicine; Referring Provider Internal Medicine; Visit Provider Internal Medicine
DX: Z78.0 Asymptomatic menopausal state (principal)
CPT/HCPCS: 77080

== ENCOUNTER → 2022-07-19 | Outpatient (CLI) | payer MEDICARE, SELFPAY ==
[2022-07-19 17:09] LABS: Anion Gap 5 (5-15); BUN 16 mg/dL (7-18); BUN/Creat Ratio 15.1 RATIO (10-20); Calcium,Total 9.5 mg/dL (8.5-10.1); Chloride 107 mmol/L (98-107); Creatinine, Serum 1.06 mg/dL (0.55-1.02); EST Glomerular Filtration Rate 54 mL/min (>60); Est Glom Filt Rate - Afr Amer 65 mL/min (>60); Glucose 115 mg/dL (74-106); Potassium 3.8 mmol/L (3.5-5.1); Sodium Level 144 mmol/L (136-145)
[2022-07-19 17:17] LABS: Hemoglobin A1c 5.4 % (3.8-5.6)
== END | disposition home or self-care (01) ==
LOC: BIMLAB 14:42
PROVIDERS: PCP Internal Medicine; Visit Provider Internal Medicine
DX: E11.9 Type 2 diabetes mellitus without complications (principal)
CPT/HCPCS: 36415; 80048; 83036

== ENCOUNTER → 2022-10-31 | Outpatient (CLI) | payer MEDICARE, SELFPAY ==
--- NOTE | 2022-10-31 14:10 | RAD_ITS ---
STUDY: X-RAY - LUMBAR SPINE REASON FOR EXAM: Female, 77 years old. Bilateral lower extremity weakness. TECHNIQUE: 3 view(s) of the lumbar spine were obtained. COMPARISON: Lumbar spine x-rays dated November 2014. FINDINGS: Osteopenia. Normal lumbar lordosis. Mild rotatory dextroscoliosis, unchanged. 4 mm of anterolisthesis of L3 on L4. Diffuse lower thoracic and lumbosacral facet sclerosis. Mild diffuse intervertebral disc space narrowing of the lower thoracic and lumbosacral spine with minimal osteophyte formation. Soft tissues normal soft tissues. RAD/Lumbar Spine 2 or 3 Views IMPRESSION: Osteopenia with stable lower thoracic and lumbosacral spondylosis compared to the prior study. No acute abnormality or erosive changes. Electronically Signed: Patel Payne MD at 10:21 EDT ,
== END | disposition home or self-care (01) ==
LOC: RAD 14:06
PROVIDERS: PCP Internal Medicine; Referring Provider Internal Medicine; Visit Provider Internal Medicine
DX: M54.16 Radiculopathy, lumbar region (principal)
CPT/HCPCS: 72100

== ENCOUNTER → 2022-11-08 | Outpatient (CLI) | payer MEDICARE, SELFPAY ==
--- NOTE | 2022-11-08 07:44 | BI_ITS ---
MAMMOGRAPHY - BILATERAL SCREENING REASON FOR EXAM: Female, 77 years old. Routine annual screening examination. PERTINENT HISTORY: Aunt with breast cancer. TECHNIQUE: Digital bilateral breast quiana (3D mammographic acquisition) in the CC and MLO projections. 2-D mediolateral oblique (MLO) and craniocaudad (CC) views of both breasts were obtained. CAD: Full Field Digital Mammography with Computer Added Detection was performed. COMPARISON: Comparison is made with prior study November 07, 2021 and November 04, 2020. FINDINGS: Breast Composition: The breasts are heterogeneously dense, which may obscure small masses. There are no dominant masses or suspicious calcifications. No other significant abnormalities are identified. There has been no significant change since the prior study. BI/SCRN MAMM (CAD)W/QUIANA BILAT IMPRESSION: Stable bilateral screening mammogram. Yearly follow-up mammogram recommended. (A) ASSESSMENT CATEGORY: BIRADS Category 1: Negative. A letter regarding these results will be sent to the patient by the facility within 30 days. Approximately 10% of breast cancers are not detected by mammography. A normal mammogram should not delay biopsy of a clinically suspicious abnormality. [id number] Electronically Signed: Bairon Peterson MD at 11:45 EDT ,
== END | disposition home or self-care (01) ==
LOC: OPBI 07:44
PROVIDERS: PCP Internal Medicine; Referring Provider Internal Medicine; Visit Provider Internal Medicine
DX: Z12.31 Encounter for screening mammogram for malignant neoplasm of breast (principal); Z80.3 Family history of malignant neoplasm of breast
CPT/HCPCS: 77063; 77067

== ENCOUNTER → 2023-01-22 | Outpatient (CLI) | payer MEDICARE, SELFPAY ==
[2023-01-22 12:15] LABS: Absolute Lymphocyte Count 1.61 X10^3/uL (0.83-4.51); Absolute Neutrophil Count 3.3 X10^3/uL (2.0-7.7); Basophil# 0.07 X10^3/uL; Basophil% 1.2 % (0-1); Eosinophil# 0.25 X10^3/uL; Eosinophils% 4.3 % (0-5); Hematocrit 39.4 % (37-47); Hemoglobin 12.7 g/dL (12.0-15.0); Lymphocyte # 1.61 X10^3/ul (0.83-4.51); Lymphocyte % 27.4 % (19-41); Mean Corp Hgb Conc 32.2 g/dL (32-36); Mean Corpuscular Hgb 30.6 pg (27.0-32.0); Mean Corpuscular Volume 94.9 fL (81-99); Mean Platelet Vol. 9.8 fl (6.2-12.0); Monocyte# 0.52 X10^3/uL; Monocyte% 8.8 % (0-10); NRBC Flagged by Analyzer 0 % (0-5); Neutrophil # 3.32 X10^3/uL (2.7-7.7); Neutrophil % 56.4 % (47-70); Platelet Count 281 K/mm3 (150-450); RBC Distribution Width CV 12.7 % (11.6-14.6); RBC Distribution Width SD 43.9 fl (35.1-43.9); Red Blood Count 4.15 M/mm3 (4.2-5.4); White Blood Count 5.9 K/mm3 (4.4-11.0)
[2023-01-22 13:04] LABS: ALB/GLOB Ratio 1.1 RATIO (0.9-2.4); AST(SGOT) 19 U/L (15-37); Alanine Aminotransfer ALT/SGPT 22 U/L (13-56); Albumin, Serum 3.9 g/dL (3.2-5.0); Alkaline Phosphatase 100 U/L (45-117); Anion Gap 7 (5-15); BUN 20 mg/dL (7-18); BUN/Creat Ratio 18.7 RATIO (10-20); Calcium,Total 9.4 mg/dL (8.5-10.1); Chloride 106 mmol/L (98-107); Cholesterol 145 mg/dL (200); Creatinine, Serum 1.07 mg/dL (0.55-1.02); EST Glomerular Filtration Rate 53 mL/min (>60); Est Glom Filt Rate - Afr Amer 64 mL/min (>60); Globulin 3.5 g/dL (2.2-4.2); Glucose 78 mg/dL (74-106); High Density Lipoprotein 88 mg/dL; Potassium 3.7 mmol/L (3.5-5.1); Protein, Total 7.4 g/dL (6.4-8.2); Sodium Level 142 mmol/L (136-145); Triglycerides 82 mg/dL; Very Low Density Lipoprotein 16 mg/dL (5-40)
[2023-01-22 14:13] LABS: Hemoglobin A1c 5.4 % (3.8-5.6)
== END | disposition home or self-care (01) ==
LOC: BIMLAB 09:54
PROVIDERS: PCP Internal Medicine; Referring Provider Internal Medicine; Visit Provider Internal Medicine
DX: I10 Essential (primary) hypertension (principal); E11.9 Type 2 diabetes mellitus without complications
CPT/HCPCS: 36415; 80053; 80061; 83036; 85025

== ENCOUNTER → 2023-04-17 | Outpatient (CLI) | payer MEDICARE, SELFPAY ==
[2023-04-17 12:42] LABS: Bacteria 0 SEEN /hpf (None Seen); Mucous, Urine 0 SEEN /hpf (<or=2+)
[2023-04-17 15:20] LABS: Color, Urine Yellow (Yellow); Glucose, Dipstick Normal (Normal); Ketone-Dipstick Negative (Negative); Leukocyte Esterase-Dipstick 25 /ul (Negative); Nitrite-Dipstick Negative (Negative); Occult Blood-Urine Negative /ul (Negative); Protein-Dipstick 30 mg/dl (Negative); Urine Bilirubin Dipstick Negative (Negative); Urine Clarity Sl. Cloudy (Clear); Urine Urobilinogen Normal (Normal)
[2023-04-17 15:48] LABS: Amorphous Sediment 2+ URATE; Hyaline Cast 0-5 SEEN /lpf (0-5); Red Blood Cells-Urine 0-5 SEEN /hpf (0-5); Squamous Epithelial Cells - UA 0-5 SEEN /hpf (5-10); White Blood Cells 0-5 SEEN /hpf (0-5)
--- OUTSIDE RECORDS SUMMARY | 2023-04-17 17:04 | XMS RPT_ITS | CCD ---
Author Name Unknown Address [id number] [place] [address] Organization [facility] Care Team Providers Care [employer] Chair Name Role Phone Davy Guerra Unavailable Unavailable Desean Cartagena MD Unavailable [phone] Davy Guerra Unavailable Unavailable RAMU ARCE Attending Unavailable SELF, SELF Referring Unavailable LAWRENCE SERNA Referring Unavailable RAJIV CUMMINGS Attending Unavailable Unavailable Primary Care Provider Unavailross Garcia MD, Nicole Zamora Primary Care Provider Desean Cartagena Unavailable Allergies Allergy Classification Reported Allergen(s) Allergy Type Date of Onset Reaction(s) Facility (4 sources) Grass pollen Propensity to adverse reactions 11-17-2004 [facility] Work Phone: Medications Completed/Discontinued Medications Medication Drug Class(es) Dates Sig (Normalized) Sig (Original) acetaminophen / HYDROcodone (8 sources) Opioid Agonist Start: 02-22-2012 End: 07-08-2012 take 1 tablet by mouth four times daily as needed for pain VICODIN 5-500 MG TABS (HYDROCODONE-ACET AMINOPHEN) One tablet by mouth four times daily as needed for pain VICODIN 5-500 MG TABS (HYDROCODONE-ACET AMINOPHEN) Maribeth Mccullough LPN Problems Active Problems Problem Classification Problem Date Documented Date Episodic/Chronic Anal and rectal conditions (8 sources) Rectal prolapse; Translations: [Rectal prolapse] Onset: 05-27-2021 Episodic Diabetes mellitus without complication (4 sources) Type 2 diabetes mellitus; Translations: [Type 2 diabetes mellitus without complications] Onset: 12-06-2016 12-06-2016 Chronic Disorders of lipid metabolism (8 sources) Hyperlipidemia; Translations: [Hyperlipidemia, unspecified] Onset: 12-06-2016 12-06-2016 Chronic Diverticulosis and diverticulitis (4 sources) Diverticulosis of colon; Translations: [Diverticulosis of large intestine without perforation or abscess without bleeding] 11-17-2004 Chronic Essential hypertension (8 sources) Hypertensive disorder; Translations: [Essential hypertension] Onset: 12-06-2016 12-06-2016 Chronic Hemorrhoids (4 sources) Hemorrhoids; Translations: [Unspecified hemorrhoids] 11-17-2004 Episodic Other connective tissue disease (8 sources) Muscle weakness; Translations: [Muscle weakness (generalized)] Onset: 05-27-2021 Episodic Other connective tissue disease (1 source) Pelvic floor dysfunction; Translations: [Pelvic muscle wasting] Episodic Other nutritional; endocrine; and metabolic disorders (4 sources) Metabolic syndrome X; Translations: [Metabolic syndrome] 11-17-2004 Chronic Residual codes; unclassified (4 sources) Sleep apnea; Translations: [Sleep apnea, unspecified] 11-17-2004 Chronic Unclassified (4 sources) Aftercare ; Translations: [Encounter for other specified surgical aftercare] Onset: 10-03-2012 10-04-2012 Unclassified (2 sources) Procedure carried out on subject; Translations: [Encounter for screening for nutritional disorder] Onset: 12-06-2016 12-06-2016 Past or Other Problems Problem Classification Problem Date Documented Da te Episodic/Chronic Diseases of mouth; excluding dental (4 sources) Mucocele of salivary gland; Translations: [Mucocele of salivary gland] Onset: 11-06-2011 12-24-2011 Episodic Other and unspecified benign neoplasm (8 sources) Hemangioma of skin and subcutaneous tissue; Translations: [Hemangioma of skin and subcutaneous tissue] Onset: 11-06-2011 12-24-2011 Episodic Other connective tissue disease (4 sources) Ganglion, right hand; Translations: [Ganglion, right hand] Onset: 09-29-2015 09-29-2015 Episodic Other gastrointestinal disorders (4 sources) Constipation; Translations: [Constipation, unspecified] Onset: 08-09-2011 08-09-2011 Episodic Other nervous system disorders (4 sources) Dysesthesia; Translations: [Other disturbances of skin sensation] Onset: 09-29-2015 09-29-2015 Episodic Unclassified (2 sources) Encounter for screening for nutritional disorder; Translations: [Encounter for screening for nutritional disorder] Onset: 12-06-2016 12-06-2016 Episodic Unclassified (4 sources) Family history of malignant neoplasm of skin; Translations: [Family history of malignant neoplasm of other organs or systems] Onset: 03-26-2012 04-08-2012 Episodic Results Test Name Value Interpretation Reference Range Facil ity Vital Signs Date Time Vital Sign Value Performing Clinician Facility 07-01-2021 12:53-0400 Body height 162.56 cm [facility] Work Phone: DO NOT USE - TQ-Cyhyasx-[address] Work Phone: 07-01-2021 12:53-0400 Body mass index (BMI) [Ratio] 25.4 kg/m2 [facility] Work Phone: DO NOT USE - PS-Kyzozbm-Jvftzks[address] Work Phone: 07-01-2021 12:53-0400 Body surface area Derived from formula 1.72 m2 [facility] Work Phone: DO NOT USE - FS-Zjatfsl-Xq[address]) Work Phone: 07-01-2021 12:53-0400 Body weight 67.13 kg [facility] Work Phone: DO NOT USE - ZQ-Qkutdkx-Xkxytfw[address]) Work Phone: 07-01-2021 12:53-0400 Diastolic blood pressure 88 mm[Hg] [facility] Work Phone: DO NOT USE - [facility]-Uuwaoqf-[address] [facility] Work Phone: 07-01-2021 12:53-0400 Heart rate 67 /min [facility] Work Phone: DO NOT USE - [facility] [address] [facility] ([place]) Work Phone: 07-01-2021 12:53-0400 Systolic blood pressure 157 mm[Hg] Desean Cartagena Work Phone: DO NOT USE - [facility] [address] [facility] ([place]) Work Phone: 12-06-2016 10:25-0400 BMI (Body Mass Index) 32.78 kg/m2 Desean Cartagena MD [facility] Work Phone: 12-06-2016 10:25-0400 Body Temperature 99.1 [degF] Desean Cartagena MD [facility] Work Phone: 12-06-2016 10:25-0400 BP Diastolic 84 mm[Hg] Desean Cartagena MD [facility] Work Phone: 12-06-2016 10:25-0400 BP Systolic 135 mm[Hg] Desean Cartagena MD [facility] Work Phone: 12-06-2016 10:25-0400 Height 162.56 cm Desean Cartagena MD [facility] Work Phone: 12-06-2016 10:25-0400 Pulse (Heart Rate) 69 /min Desean Cartagena MD [facility] Work Phone: 12-06-2016 10:25-0400 Respiratory Rate 18 /min Desean Cartagena MD [facility] Work Phone: 12-06-2016 10:25-0400 Weight 86.64 kg Desean Cartagena MD [facility] Work Phone: 03-01-2016 10:17-0500 BSA (Body Surface Area) 1.93 m2 Desean Cartagena MD [facility] Work Phone: Encounters Encounter Date Encounter Type Care Provider Facility Start: 07-22-2021 End: 07-22-2021 ambulatory Rajiv Cartagena PT Work Phone: [facility] Physical Therapy Procedures Date Procedure Procedure Detail Performing Clinician Start: 11-30-2020 Mri brain brain stem w/o w/contrast material Aubrey Bran MD Work Phone: Start: 12-06-2016 End: 12-14-2016 *CBC with Differential Desean vo MD Work Phone: Start: 12-06-2016 End: 12-14-2016 *CMP Complete Metabolic Panel Desean Cartagena MD Work Phone: Start: 12-06-2016 End: 12-14-2016 *Microalbumin, Creatine Ratio, rand urine Desean Cartagena MD Work Phone: Start: 12-06-2016 End: 12-14-2016 25-Hydroxyvitamin D2+25-Hydroxyvitamin D3 [Mass/volume] in Serum or Plasma Desean Cartagena MD Work Phone: Start: 12-06-2016 End: 12-14-2016 Hemoglobin A1c/Hemoglobin.total in Blood Desean Cartagena MD Work Phone: Start: 12-06-2016 End: 12-14-2016 Lipid 1996 panel - Serum or Plasma Desean Cartagena MD Work Phone: Start: 12-06-2016 End: 12-06-2016 Dietary management education, guidance, and counseling Davy HURTADO Start: 12-06-2016 End: 12-06-2016 *CBC with Differential Desean vo MD Work Phone: Start: 12-06-2016 End: 12-07-2016 *CMP Complete Metabolic Panel Desean Cartagena MD Work Phone: Start: 12-06-2016 End: 12-07-2016 *Microalbumin, Creatine Ratio, rand urine Desaen Cartagena MD Work Phone: Start: 12-06-2016 End: 12-07-2016 25-Hydroxyvitamin D2+25-Hydroxyvitamin D3 [Mass/volume] in Serum or Plasma Desean Cartagena MD Work Phone: Start: 12-06-2016 End: 12-06-2016 HbA1c Desean Avina Work Phone: Start: 12-06-2016 End: 12-06-2016 Lipid panel [AGGREGATE] Desean moulton MD Work Phone: Start: 03-01-2016 End: 04-22-2016 Follow Up Appt Other Aaron Hankins MD Start: 03-01-2016 End: 04-22-2016 Follow Up Appt Other Aaron Hankins MD Start: 01-17-2016 End: 04-22-2016 Follow Up Appt 1 month Aaron Hankins MD Start: 01-17-2016 End: 04-22-2016 Follow Up Appt 1 month Aaron Hankins MD Start: 12-22-2015 End: 01-19-2016 Follow Up Appt 1 month Aaron Hankins MD Start: 12-22-2015 End: 01-19-2016 Follow Up Appt 1 month Aaron Hankins MD Start: 12-06-2015 End: 01-19-2016 Follow Up Appt 2 weeks Aaron Hankins MD Start: 12-06-2015 End: 01-19-2016 Follow Up Appt 2 weeks Aaron Hankins MD Start: 11-24-2015 End: 01-19-2016 Follow up Appt 1 week Aaron Hankins MD Start: 11-24-2015 End: 01-19-2016 Follow up Appt 1 week Aaron Hankins MD Start: 09-29-2015 End: 11-16-2015 Follow Up Appt Other Aaron Hankins MD Start: 09-29-2015 End: 11-16-2015 Follow Up Appt Other Aaron Hankins MD Start: 08-29-2011 Colonoscopy Rajiv [place] mary PT Work Phone: Start: 02-23-2011 Mammography Rajiv [place] PT Work Phone: Hysterectomy Desean silverio Work Phone: Plan of Treatment Date Care Activity Detail Author Start: 01-06-2022 BP CONTROLLED (<130/80) BP CONTROLLED (<130/80) [facility] in Start: 08-28-2021 Colonoscopy COLONOSCOPY [facility] Start: 08-28-2021 COLORECTAL CANCER SCREENING COLORECTAL CANCER SCREENING [facility] Start: 05-02-2021 COVID-19 VACCINE (4 - Booster for Pfizer series) COVID-19 VACCINE (4 - Booster for Pfizer series) [facility] Start: 03-12-2021 ADVANCE DIRECTIVE DISCUSSION ADVANCE DIRECTIVE DISCUSSION [facility] Start: 11-10-2020 Influenza vaccination Flu vaccine (#1) [facility] Work Phone: Start: 03-07-2017 End: 03-07-2017 Appointment Appointment [facility] Work Phone: Start: 12-06-2016 End: 12-06-2016 *CBC with Differential *CBC with Differential [facility] Work Phone: Start: 12-06-2016 End: 12-07-2016 *CMP Complete Metabolic Panel *CMP Complete Metabolic Panel [facility] Work Phone: Start: 12-06-2016 End: 12-07-2016 *Microalbumin, Creatine Ratio, rand urine *Microalbumin, Creatine Ratio, rand urine [facility] Work Phone: Start: 12-06-2016 End: 12-07-2016 25-Hydroxyvitamin D2+25-Hydroxyvitamin D3 mass conc *Vitamin D (Calciferol) [facility] Work Phone: Start: 12-06-2016 End: 12-06-2016 Follow Up Appt 3 months Follow Up Appt 3 months [facility] Work Phone: Start: 12-06-2016 End: 12-06-2016 Hemoglobin A1c/Hemoglobin.total mass fraction (Bld) *HgA1C [facility] Work Phone: Start: 12-06-2016 End: 12-06-2016 Lipid 1996 panel *Lipid Profile [facility] Work Phone: Start: 12-06-2016 End: 12-06-2016 Podiatry Referral Podiatry Referral Mary Ibrahim DPM, [facility], [address] [place] [address] [place], [address] [facility] Work Phone: Start: 12-06-2016 End: 12-06-2016 *CBC with Differential *CBC with Differential [facility] Work Phone: Start: 12-06-2016 End: 12-07-2016 *CMP Complete Metabolic Panel *CMP Complete Metabolic Panel [facility] Work Phone: Start: 12-06-2016 End: 12-07-2016 *Microalbumin, Creatine Ratio, rand urine *Microalbumin, Creatine Ratio, rand urine [facility] Work Phone: Start: 12-06-2016 End: 12-07-2016 25-Hydroxyvitamin D2+25-Hydroxyvitamin D3 [Mass/volume] in Serum or Plasma *Vitamin D (Calciferol) [facility] Work Phone: Start: 12-06-2016 End: 12-06-2016 Follow Up Appt 3 months Follow Up Appt 3 months [facility] Work Phone: Start: 12-06-2016 End: 12-06-2016 HbA1c *HgA1C [facility] Work Phone: Start: 12-06-2016 End: 12-06-2016 Lipid panel [AGGREGATE] *Lipid Profile [facility] Work Phone: Start: 12-06-2016 End: 12-06-2016 Podiatry Referral Podiatry Referral Mary Ibrahim DPM, [facility], [address] [place] [address], [facility] [place] [place], [address] [facility] Work Phone: Start: 03-01-2016 End: 04-22-2016 Follow Up Appt Other Follow Up Appt Other [facility] Work Phone: Start: 03-01-2016 End: 04-22-2016 Follow Up Appt Other Follow Up Appt Other [facility] Work Phone: Start: 01-17-2016 End: 04-22-2016 Follow Up Appt 1 month Follow Up Appt 1 month [facility] Work Phone: Start: 01-17-2016 End: 04-22-2016 Follow Up Appt 1 month Follow Up Appt 1 month [facility] Work Phone: Start: 01-10-2016 End: 01-10-2016 OT[facility]Hand Therapy [facility], [address] [place] [address], [id number] [facility] Work Phone: Start: 01-10-2016 End: 01-10-2016 OT-Hand Therapy [facility], [address] [place] [address], [id number] [facility] Work Phone: Start: 12-22-2015 End: 01-19-2016 Follow Up Appt 1 month Follow Up Appt 1 month [facility] Work Phone: Start: 12-22-2015 End: 01-19-2016 Follow Up Appt 1 month Follow Up Appt 1 month [facility] Work Phone: Start: 12-06-2015 End: 01-19-2016 Follow Up Appt 2 weeks Follow Up Appt 2 weeks [facility] Work Phone: Start: 12-06-2015 End: 01-19-2016 Follow Up Appt 2 weeks Follow Up Appt 2 weeks [facility] Work Phone: Start: 11-24-2015 End: 01-19-2016 Follow up Appt 1 week Follow up Appt 1 week [facility] Work Phone: Start: 11-24-2015 End: 01-19-2016 Follow up Appt 1 week Follow up Appt 1 week [facility] Work Phone: Start: 09-29-2015 End: 11-16-2015 Follow Up Appt Other Follow Up Appt Other [facility] Work Phone: Start: 09-29-2015 End: 11-16-2015 Follow Up Appt Other Follow Up Appt Other [facility] Work Phone: Start: 06-13-2012 BONE DENSITY BONE DENSITY [facility] Start: 06-13-2012 Pneumococcal 65+ years Vaccine (1 of 1 - PPSV23) Pneumococcal 65+ years Vaccine (1 of 1 - PPSV23) [facility] Work Phone: Start: 06-13-2012 PNEUMOVAX AGE 65 AND OVER WITH 5YR LOOKBACK (#1) PNEUMOVAX AGE 65 AND OVER WITH 5YR LOOKBACK (#1) [facility] Start: 02-24-2012 Mammography MAMMOGRAM [facility] Start: 08-23-2011 LIPID SCREEN LIPID SCREEN [facility] Start: 08-22-2009 DIABETES SCREEN DIABETES SCREEN [facility] Start: 06-13-2002 Screening for osteoporosis DEXA (modify frequency per FRAX score) [facility] Work Phone: Start: 06-13-1997 Screening for malignant neoplasm of breast Breast cancer screen [facility] Work Phone: Start: 06-13-1997 SHINGRIX VACCINE (1 of 2) SHINGRIX VACCINE (1 of 2) [facility] Start: 06-13-1992 COLOGUARD (FIT-DNA) COLOGUARD (FIT-DNA) [facility] Start: 06-13-[address] COLONOGRAPHY [facility] Start: 06-13-1992 FECAL OCCULT BLOOD FECAL OCCULT BLOOD [facility] Start: 06-13-1992 Screening for malignant neoplasm of colon Colon cancer screen colonoscopy [facility] Work Phone: Start: 06-13-1992 SIGMOIDOSCOPY SIGMOIDOSCOPY [facility] Start: 1987 Lipid panel Lipid screen [facility] Work Phone: Start: 06-13-1966 DTaP/Tdap/Td vaccine (1 - Tdap) DTaP/Tdap/Td vaccine (1 - Tdap) [facility] Work Phone: Start: 06-13-1966 Urine microalbumin profile DTAP,TDAP,TD (1 - Tdap) [facility] Start: 06-13-1965 ANNUAL PCP TEAM CHRONIC DISEASE VISIT ANNUAL PCP TEAM CHRONIC DISEASE VISIT [facility] Start: 06-13-1965 HEPATITIS C SCREENING HEPATITIS C SCREENING [facility] Start: 1959 Adult depression screening assessment DEPRESSION SCREENING [facility] Start: 1945 Hepatitis C screening Hepatitis C screen [facility] Work Phone: [facility] Payers Date Payer Category Payer Medicare [id number] 2012 Medicare [id number] 1945 Unknown [id number] 1945 Unknown [id number] Unknown Social History Date Type Detail Facility Tobacco smoking stat [facility] Unknown if ever smoked [facility] Work Phone: Start: 1945 Sex Assigned At Not on file [facility] Work Phone: Start: 01-11-2021 Alcohol intake Current drinke r of alcohol (finding) [facility] Start: 11-07-2006 Tobacco Comment Quit in 1973 [facility] Start: 05-17-2021 End: 06-28-2021 Exposure to SARS-CoV-2 (event) Not sure [facility] Start: 1945 Sex Assigned At Female [facility] DO NOT USE - [facility] [address] [facility] ([place]) Work Phone: Clinical Notes 06-13-2005 to 08-09-2021 Rajiv Cartagena, PT - 07/22/2021 1:10 PM Paula Cartagena, PT - 06/28/2021 10:57 AM Paula Cartagena, PT - 06/17/2021 2:45 PM Paula Cartagena, PT - 06/10/2021 1:57 PM EDT Note Date & Type Note Facility 08-09-2021 Note HNO ID: [id number] Author: Rajiv Cartagena PT Service: ? Author Type: Physical Therapist Type: Progress Notes Filed: 08/09/2021 11:54 AM Note Text: Episode Visit Count: 6 Therapist That Will Oversee The Plan Of Care: Rajiv Cartagena Start of Care Date: 05/27/21 Onset Date: 05/27/20 Plan of Care Certification Date: 05/27/21 Next Certification Due Date: 08/25/21 Patient Identified by Name and Date of : Yes REHABILITATION AND SPORTS THERAPY PHYSICAL THERAPY DISCONTINUANCE OF CARE PLAN OF CARE UPDATE: Assessment: Dave Slater is discontinued from Physical Therapy services due to goal achievement and maximal benefit.. Patient was seen for 6 visits from Start of Care Date: 05/27/21 to 08/09/2021 and treatment included: Therapeutic exercise and Self-assisted management. Goals for Episode of Care: created on 05/27/21 Updated on: 06/28/2021, 08/09/2021 [place] in home exercise program.-MET Patient will demonstrate increase in core strength to at least 3+/5 during manual muscle testing in order to improve function for prior functional Tasks.-MET Patient will demonstrate increase in BLE strength to 5/5 during manual muscle testing in order to improve function for prior functional tasks.-MET Incontinence: Increase strength of pelvic floor to Power: at least 3/5-NOT ASSESSED THIS DATE Patient demonstrates ability to correctly isolate pelvic floor muscles-MET Patient reports increased ability to fully empty bowels without straining-MET Patient reports at least 75% improvement in fecal incontinence-MET Patient Goals: improve bowel function SUBJECTIVE: Patient Reason for Visit: Pt reports changing medication, had one day with 3 episodes of diarrhea (no fecal incontinence). Pt reports no diarrhea since that day. Pt reports no episodes of fecal incontinence since last session, no rectal pain. Pt reports being pleased with progress, feels comfortable continuing HEP on her own at home. Pain: Pain Pain Level: 0 Post Treatment Pain Post Treatment Pain Level: 0 PROMIS Scales Higher is Better 06/27/2021 Phys Func - Score 50 (within normal limits) Phys Func - Percentile 50 % Social Roles - Score 50 (within normal limits) Social Role - Percentile 50 % GH Physical - Score 50.8 (Very Good) GH Physical - Percentile 53 % GH Mental - Score 45.8 (Good) GH Mental - Percentile 34 % Self-Eff Symptom - Score 42 (Average) Self-Eff Symptom - Percentile 21 % T-scores: mean of general population = 50. 5 points is clinically meaningfully difference Percentiles provide an indication of how the patient's score ranks in relation to the general population. Higher percentile rankings indicate better function/quality of life. 50th percentile is the average of the general population and indicates half of respondents had a worse score. Lower is Better 06/27/2021 Fatigue - Score 55 (within normal limits) Fatigue - Percentile 31 % T-scores: mean of general population = 50. 5 points is clinically meaningfully difference Percentiles provide an indication of how the patient's score ranks in relation to the general population. Higher percentile rankings indicate better function/quality of life. 50th percentile is the average of the general population and indicates half of respondents had a worse score. OBJECTIVE MEASURES WITH LEVEL OF FUNCTION: Pelvic Floor Difficulty evacuating / Excessive Straining: No Incomplete emptying: No Fecal incontinence: No Pelvic Floor Muscle Assessment Consent for pelvic assessment/testing and treatment: (PF mm assessment deferred due to pt request.) TREATMENT: Therapeutic Exercise: 1: Reassessment 2: standing hip abduction with kegal, 1x10 each 3: standing hip extension with kegal, 1x10 each 4: *rows with TA and PF bracing, L3 TB, 2x10 5: *pull downs with TA and PF bracing, L3 TB, 2x10 6: *mini squat with TA and PF bracing, 2x10 7: sit to stand with kegal, 2x5 8: Discussed discharge planning Skilled Intervention: Patient was educated in proper exercise technique and purpose for exercises. Reviewed and educated patient on additions/changes for home exercise program as above (*). Skilled judgment was provided in selection of appropriate interventions. Provided written instruction for home exercise program to facilitate proper performance and compliance. Billing Therapeutic Exercise Treatment Minutes: 40 Total Treatment Time Minutes (timed/untimed): 40 Rajiv Cartagena PT [facility] 07-22-2021 Note HNO ID: [id number] Author: Rajiv Cartagena PT Service: ? Author Type: Physical Therapist Type: Progress Notes Filed: 07/22/2021 1:54 PM Note Text: Episode Visit Count: 5 Therapist That Will Oversee The Plan Of Care: Rajiv Cartagena Start of Care Date: 05/27/21 Onset Date: 05/27/20 Plan of Care Certification Date: 05/27/21 Next Certification Due Date: 08/25/21 Patient Identified by Name and Date of : Yes REHABILITATION AND SPORTS THERAPY PHYSICAL THERAPY TREATMENT NOTE ASSESSMENT: Dave Slater tolerated the session with no issues. She demonstrated improvements in fecal incontinence, reports no episodes of FI since previous session. The patient will continue to benefit from ongoing skilled physical therapy to progress toward set goals. PLAN FOR NEXT VISIT: reassessment SUBJECTIVE: Patient Reason for Visit: Pt reports starting to take Metamusal, now has a bowel movement once every other day, seems to be helping to firm up stool. Pt reports no episodes of fecal incontinence since last session. Pt reports no rectal pain. Pt reports good compliance with HEP. Pain: Pain Pain Level: 0 Post Treatment Pain Post Treatment Pain Level: 0 OBJECTIVE MEASURES WITH LEVEL OF FUNCTION: Pelvic Floor Fecal incontinence: No TREATMENT: Therapeutic Exercise: 1: *quadruped TA bracing, 2x10 2: *prone hip extension, 2x10 each 3: kegal holds, 3sec hold with 3sec rest, 2x10 4: posterior pelvic tilt with alternating marches, 1x10 5: bridge with glute activation, 1x10 6: *single leg bridges, 2x5 each 7: standing hip abduction with kegal, 1x10 each 8: *standing hip extension with kegal, 2x10 each Skilled Intervention: Patient was educated in proper exercise technique and purpose for exercises. Reviewed and educated patient on additions/changes for home exercise program as above (*). Skilled judgment was provided in selection of appropriate interventions. Provided written instruction for home exercise program to facilitate proper performance and compliance. Billing Therapeutic Exercise Treatment Minutes: 42 Total Treatment Time Minutes (timed/untimed): 42 Rajiv Cartagena PT [facility] 07-22-2021 History of Present illness Narrative Episode Visit Count: 5 Therapist That Will Oversee The Plan Of Care: Rajiv Cartagena Start of Care Date: 05/27/21 Onset Date: 05/27/20 Plan of Care Certification Date: 05/27/21 Next Certification Due Date: 08/25/21 Patient Identified by Name and Date of : Yes REHABILITATION AND SPORTS THERAPY PHYSICAL THERAPY TREATMENT NOTE ASSESSMENT: Dave Slater tolerated the session with no issues. She demonstrated improvements in fecal incontinence, reports no episodes of FI since previous session. The patient will continue to benefit from ongoing skilled physical therapy to progress toward set goals. PLAN FOR NEXT VISIT: reassessment SUBJECTIVE: Patient Reason for Visit: Pt reports starting to take [place], now has a bowel movement once every other day, seems to be helping to firm up stool. Pt reports no episodes of fecal incontinence since last session. Pt reports no rectal pain. Pt reports good compliance with HEP. Pain: Pain Pain Level: 0 Post Treatment Pain Post Treatment Pain Level: 0 OBJECTIVE MEASURES WITH LEVEL OF FUNCTION: Pelvic Floor Fecal incontinence: No TREATMENT: Therapeutic Exercise: 1: *quadruped TA bracing, 2x10 2: *prone hip extension, 2x10 each 3: kegal holds, 3sec hold with 3sec rest, 2x10 4: posterior pelvic tilt with alternating marches, 1x10 5: bridge with glute activation, 1x10 6: *single leg bridges, 2x5 each 7: standing hip abduction with kegal, 1x10 each 8: *standing hip extension with kegal, 2x10 each Skilled Intervention: Patient was educated in proper exercise technique and purpose for exercises. Reviewed and educated patient on additions/changes for home exercise program as above (*). Skilled judgment was provided in selection of appropriate interventions. Provided written instruction for home exercise program to facilitate proper performance and compliance. Billing Therapeutic Exercise Treatment Minutes: 42 Total Treatment Time Minutes (timed/untimed): 42 Rajiv Cartagena PT documented in this encounter [facility] 06-28-2021 Note HNO ID: [id number] Author: Rajiv Cartagena PT Service: ? Author Type: Physical Therapist Type: Progress Notes Filed: 06/28/2021 11:40 AM Note Text: Episode Visit Count: 4 Therapist That Will Oversee The Plan Of Care: Rajiv Cartagena Start of Care Date: 05/27/21 Onset Date: 05/27/20 Plan of Care Certification Date: 05/27/21 Next Certification Due Date: 08/25/21 Patient Identified by Name and Date of : Yes REHABILITATION AND SPORTS THERAPY PHYSICAL THERAPY PROGRESS REPORT PLAN OF CARE UPDATE: Assessment: Dave Slater demonstrates improvements in core strength, BLE strength, pelvic floor coordination, ability to empty bowels without straining. She has progressed toward goals. Patient continues to present with impairments in pelvic floor strength and fecal incontinence. She will benefit from continued skilled therapy services to meet the updated goals for this plan of care as noted below. Goals for Episode of Care: created on 05/27/21 Updated on: 06/28/2021 [place] in home exercise program.-MET Patient will demonstrate increase in core strength to at least 3+/5 during manual muscle testing in order to improve function for prior functional Tasks.-MET Patient will demonstrate increase in BLE strength to 5/5 during manual muscle testing in order to improve function for prior functional tasks.-MET Incontinence: Increase strength of pelvic floor to Power: at least 3/5-PROGRESSING Patient demonstrates ability to correctly isolate pelvic floor muscles-MET Patient reports increased ability to fully empty bowels without straining-MET Patient reports at least 75% improvement in fecal incontinence-PROGRESSING Patient Goals: improve bowel function Planned Interventions, Frequency, and Duration: 1x every other week, 4 weeks (reassess at 4 weeks and progress as indicated) Total Number of Visits Planned: 2 Patient to be seen for Therapeutic exercise (74702);Manual therapy ([id number]);Self-assisted management ([id number]);Patient/Family/Caregiver Education PLAN FOR NEXT VISIT: continue to progress exercises as tolerated SUBJECTIVE: Patient Reason for Visit: Pt states my rectum finally feels normal. Pt reports no soreness or discomfort around rectum. Pt reports improvement in fecal incontinence, 3 episodes of leakage since last visit rather than happening every day. Pain: Pain Pain Level: 0 Post Treatment Pain Post Treatment Pain Level: 0 PROMIS Scales Higher is Better 06/27/2021 Phys Func - Score 50 (within normal limits) Phys Func - Percentile 50 % Social Roles - Score 50 (within normal limits) Social Role - Percentile 50 % GH Physical - Score 50.8 (Very Good) GH Physical - Percentile 53 % GH Mental - Score 45.8 (Good) GH Mental - Percentile 34 % Self-Eff Symptom - Score 42 (Average) Self-Eff Symptom - Percentile 21 % T-scores: mean of general population = 50. 5 points is clinically meaningfully difference Percentiles provide an indication of how the patient's score ranks in relation to the general population. Higher percentile rankings indicate better function/quality of life. 50th percentile is the average of the general population and indicates half of respondents had a worse score. Lower is Better 06/27/2021 Fatigue - Score 55 (within normal limits) Fatigue - Percentile 31 % T-scores: mean of general population = 50. 5 points is clinically meaningfully difference Percentiles provide an indication of how the patient's score ranks in relation to the general population. Higher percentile rankings indicate better function/quality of life. 50th percentile is the average of the general population and indicates half of respondents had a worse score. OBJECTIVE MEASURES WITH LEVEL OF FUNCTION: Pelvic Floor Fecal incontinence: Yes Solid stool: 2 or more times per week Pelvic Floor Muscle Assessment Consent for pelvic assessment/testing and treatment: Patient was educated regarding pelvic floor physical therapy assessment/treatment which may include pelvic floor and girdle muscle assessment externally or internally (vaginal or rectal approach).;Patient verbalized consent for the above treatment approaches today. Patient understands they have control of the treatment and an opportunity to stop treatment at any time. Pelvic Floor Muscle Assessment: PERFECT;Muscle Dynamics Power: 2 Endurance: 7 Fast Reps: 6 Contracton Pressure: Weak squeeze, felt as flick at various points along finger surface, not all the way around Duration of Contraction: >3 seconds Recruitment of pelvic floor muscles: Coordinated Pelvic Floor Manual Assessment Pelvic Floor Tenderness/Hyperactivity: Tested Vaginally in Tested Vaginally in : Supine/hooklying (No tightness/tenderness noted.) LE Strength Trunk Strength: Lower Abdominals: 3+/5 R LE Strength: 5/5 L LE Strength: 5/5 TREATMENT: Therapeutic Exercise: 1: Reassessment 2: posterior pelvic tilt, 1x1 (more content not included)... [facility] 06-28-2021 History of Present illness Narrative Episode Visit Count: 4 Therapist That Will Oversee The Plan Of Care: Rajiv Cartagena Start of Care Date: 05/27/21 Onset Date: 05/27/20 Plan of Care Certification Date: 05/27/21 Next Certification Due Date: 08/25/21 Patient Identified by Name and Date of : Yes REHABILITATION AND SPORTS THERAPY PHYSICAL THERAPY PROGRESS REPORT PLAN OF CARE UPDATE: Assessment: Dave Slater demonstrates improvements in core strength, BLE strength, pelvic floor coordination, ability to empty bowels without straining. She has progressed toward goals. Patient continues to present with impairments in pelvic floor strength and fecal incontinence. She will benefit from continued skilled therapy services to meet the updated goals for this plan of care as noted below. Goals for Episode of Care: created on 05/27/21 Updated on: 06/28/2021 [place] in home exercise program.-MET Patient will demonstrate increase in core strength to at least 3+/5 during manual muscle testing in order to improve function for prior functional Tasks.-MET Patient will demonstrate increase in BLE strength to 5/5 during manual muscle testing in order to improve function for prior functional tasks.-MET Incontinence: Increase strength of pelvic floor to Power: at least 3/5-PROGRESSING Patient demonstrates ability to correctly isolate pelvic floor muscles-MET Patient reports increased ability to fully empty bowels without straining-MET Patient reports at least 75% improvement in fecal incontinence-PROGRESSING Patient Goals: improve bowel function Planned Interventions, Frequency, and Duration: 1x every other week, 4 weeks (reassess at 4 weeks and progress as indicated) Total Number of Visits Planned: 2 Patient to be seen for Therapeutic exercise ([id number]);Manual therapy ([id number]);Self-assisted management ([id number]);Patient/Family/Caregiver Education PLAN FOR NEXT VISIT: continue to progress exercises as tolerated SUBJECTIVE: Patient Reason for Visit: Pt states my rectum finally feels normal. Pt reports no soreness or discomfort around rectum. Pt reports improvement in fecal incontinence, 3 episodes of leakage since last visit rather than happening every day. Pain: Pain Pain Level: 0 Post Treatment Pain Post Treatment Pain Level: 0 PROMIS Scales Higher is Better 06/27/2021 Phys Func - Score 50 (within normal limits) Phys Func - Percentile 50 % Social Roles - Score 50 (within normal limits) Social Role - Percentile 50 % GH Physical - Score 50.8 (Very Good) GH Physical - Percentile 53 % GH Mental - Score 45.8 (Good) GH Mental - Percentile 34 % Self-Eff Symptom - Score 42 (Average) Self-Eff Symptom - Percentile 21 % T-scores: mean of general population = 50. 5 points is clinically meaningfully difference Percentiles provide an indication of how the patient's score ranks in relation to the general population. Higher percentile rankings indicate better function/quality of life. 50th percentile is the average of the general population and indicates half of respondents had a worse score. Lower is Better 06/27/2021 Fatigue - Score 55 (within normal limits) Fatigue - Percentile 31 % T-scores: mean of general population = 50. 5 points is clinically meaningfully difference Percentiles provide an indication of how the patient's score ranks in relation to the general population. Higher percentile rankings indicate better function/quality of life. 50th percentile is the average of the general population and indicates half of respondents had a worse score. OBJECTIVE MEASURES WITH LEVEL OF FUNCTION: Pelvic Floor Fecal incontinence: Yes Solid stool: 2 or more times per week Pelvic Floor Muscle Assessment Consent for pelvic assessment/testing and treatment: Patient was educated regarding pelvic floor physical therapy assessment/treatment which may include pelvic floor and girdle muscle assessment externally or internally (vaginal or rectal approach).;Patient verbalized consent for the above treatment approaches today. Patient understands they have control of the treatment and an opportunity to stop treatment at any time. Pelvic Floor Muscle Assessment: PERFECT;Muscle Dynamics Power: 2 Endurance: 7 Fast Reps: 6 Contracton Pressure: Weak squeeze, felt as flick at various points along finger surface, not all the way around Duration of Contraction: >3 seconds Recruitment of pelvic floor muscles: Coordinated Pelvic Floor Manual Assessment Pelvic Floor Tenderness/Hyperactivity: Tested Vaginally in Tested Vaginally in : Supine/hooklying (No tightness/tenderness noted.) LE Strength Trunk Strength: Lower Abdominals: 3+/5 R LE Strength: 5/5 L LE Strength: 5/5 TREATMENT: Therapeutic Exercise: 1: Reassessment 2: posterior pelvic tilt, 1x10 3: *posterior pelvic tilt with alternating marches, 2x10 4: *standing hip abduction with kegal, 2x10 each 5: Reviewed functional kegals Skilled Intervention: Patient was educated in proper exercise technique and purpose for exercises. Reviewed and educated patient on additions/changes for home exercise program as above (*). Skilled judgment was provided in selection of appropriate interventions. Provided written instruction for home exercise program to facilitate proper performance and compliance. Billing Therapeutic Exercise Treatment Minutes: 41 Total Treatment Time Minutes (timed/untimed): 41 Rajiv Cartagena PT documented in this encounter [facility] 06-17-2021 Note HNO ID: [id number] Author: Rajiv Cartagena PT Service: ? Author Type: Physical Therapist Type: Progress Notes Filed: 06/17/2021 3:28 PM Note Text: Episode Visit Count: 3 Therapist That Will Oversee The Plan Of Care: Rajiv Cartagena Start of Care Date: 05/27/21 Onset Date: 05/27/20 Plan of Care Certification Date: 05/27/21 Next Certification Due Date: 08/25/21 Patient Identified by Name and Date of : Yes REHABILITATION AND SPORTS THERAPY PHYSICAL THERAPY TREATMENT NOTE ASSESSMENT: Dave Slater tolerated the session with no issues. She demonstrated difficulty with fecal incontinence and overall bowel dysfunction per patient report. The patient will continue to benefit from ongoing skilled physical therapy to progress toward set goals. PLAN FOR NEXT VISIT: continue to progress exercises SUBJECTIVE: Patient Reason for Visit: Pt reports having massive, uncontrollable bowel movements. Pt reports not eating anything out of the ordinary, feels bowel issues might be due to wide variety of medication. Pt reports not feeling well today, feels soreness around her rectum. Pt reports fair compliance with HEP due to having a bad week. Pt reports continued fecal incontinence, about every day since last session. Pain: Pain Pain Level: 5 Pain Location: Rectum Description: Sore Frequency: Intermittent Post Treatment Pain Post Treatment Pain Level: No Change OBJECTIVE MEASURES WITH LEVEL OF FUNCTION: Pelvic Floor Fecal incontinence: Yes Solid stool: Once per day TREATMENT: Therapeutic Exercise: 1: bridge with glute activation, 1x10 2: *posterior pelvic tilt, 2x10 3: kegal holds, 3sec hold with 3sec rest, 2x10 4: *clamshells, 2x10 each 5: *sidelying hip abduction, 2x10 each Skilled Intervention: Patient was educated in proper exercise technique and purpose for exercises. Reviewed and educated patient on additions/changes for home exercise program as above (*). Skilled judgment was provided in selection of appropriate interventions. Provided written instruction for home exercise program to facilitate proper performance and compliance. Billing Therapeutic Exercise Treatment Minutes: 40 Total Treatment Time Minutes (timed and untimed codes) : 40 Rajiv Cartagena PT [facility] 06-17-2021 History of Present illness Narrative Episode Visit Count: 3 Therapist That Will Oversee The Plan Of Care: Rajiv Cartagena Start of Care Date: 05/27/21 Onset Date: 05/27/20 Plan of Care Certification Date: 05/27/21 Next Certification Due Date: 08/25/21 Patient Identified by Name and Date of : Yes REHABILITATION AND SPORTS THERAPY PHYSICAL THERAPY TREATMENT NOTE ASSESSMENT: Dave Slater tolerated the session with no issues. She demonstrated difficulty with fecal incontinence and overall bowel dysfunction per patient report. The patient will continue to benefit from ongoing skilled physical therapy to progress toward set goals. PLAN FOR NEXT VISIT: continue to progress exercises SUBJECTIVE: Patient Reason for Visit: Pt reports having massive, uncontrollable bowel movements. Pt reports not eating anything out of the ordinary, feels bowel issues might be due to wide variety of medication. Pt reports not feeling well today, feels soreness around her rectum. Pt reports fair compliance with HEP due to having a bad week. Pt reports continued fecal incontinence, about every day since last session. Pain: Pain Pain Level: 5 Pain Location: Rectum Description: Sore Frequency: Intermittent Post Treatment Pain Post Treatment Pain Level: No Change OBJECTIVE MEASURES WITH LEVEL OF FUNCTION: Pelvic Floor Fecal incontinence: Yes Solid stool: Once per day TREATMENT: Therapeutic Exercise: 1: bridge with glute activation, 1x10 2: *posterior pelvic tilt, 2x10 3: kegal holds, 3sec hold with 3sec rest, 2x10 4: *clamshells, 2x10 each 5: *sidelying hip abduction, 2x10 each Skilled Intervention: Patient was educated in proper exercise technique and purpose for exercises. Reviewed and educated patient on additions/changes for home exercise program as above (*). Skilled judgment was provided in selection of appropriate interventions. Provided written instruction for home exercise program to facilitate proper performance and compliance. Billing Therapeutic Exercise Treatment Minutes: 40 Total Treatment Time Minutes (timed and untimed codes) : 40 Rajiv Cartagena PT documented in this encounter [facility] 06-10-2021 Note HNO ID: [id number] Author: Rajiv Cartagena PT Service: ? Author Type: Physical Therapist Type: Progress Notes Filed: 06/10/2021 2:40 PM Note Text: Episode Visit Count: 2 Therapist That Will Oversee The Plan Of Care: Rajiv Cartagena Start of Care Date: 05/27/21 Onset Date: 05/27/20 Plan of Care Certification Date: 05/27/21 Next Certification Due Date: 08/25/21 Patient Identified by Name and Date of : Yes REHABILITATION AND SPORTS THERAPY PHYSICAL THERAPY TREATMENT NOTE ASSESSMENT: Dave Slater tolerated the session with no issues. She demonstrated improvements in pelvic floor coordination, able to contract muscles without using accessory muscles. The patient will continue to benefit from ongoing skilled physical therapy to progress toward set goals. PLAN FOR NEXT VISIT: continue to progress exercises SUBJECTIVE: Patient Reason for Visit: Pt reports increased fecal incontinence, had to start wearing diapers since last session. Pt reports calling physician, office told her surgery was her next option, got a call from a surgeon but does not want surgery right now, plans on calling back with questions/concerns. Pt reports fair compliance with HEP. Pain: Pain Pain Level: 0 Post Treatment Pain Post Treatment Pain Level: 0 OBJECTIVE MEASURES WITH LEVEL OF FUNCTION: Pelvic Floor Surface EMG: Patient Position: sidelying Rest tone: 3 uV Flick strength: 10 uV Pt performed 4 quick flicks within 10 sec. Pt able to hold a 10 uV pelvic floor contraction for 2 seconds before demonstrating muscle fatigue. TREATMENT: Therapeutic Exercise: 1: Pelvic floor muscle contractions with visual assistance from biofeedback (see objective) 2: *kegal holds, 2sec hold with 2sec rest, 2x10 3: *bridge with glute activation, 2x10 Skilled Intervention: Patient was educated in proper exercise technique and purpose for exercises. Reviewed and educated patient on additions/changes for home exercise program as above (*). Skilled judgment was provided in selection of appropriate interventions. Provided written instruction for home exercise program to facilitate proper performance and compliance. Billing Therapeutic Exercise Treatment Minutes: 40 Total Treatment Time Minutes (timed and untimed codes) : 40 Rajiv Cartagena PT [facility] 06-10-2021 History of Present illness Narrative Episode Visit Count: 2 Therapist That Will Oversee The Plan Of Care: Rajiv Cartagena Start of Care Date: 05/27/21 Onset Date: 05/27/20 Plan of Care Certification Date: 05/27/21 Next Certification Due Date: 08/25/21 Patient Identified by Name and Date of : Yes REHABILITATION AND SPORTS THERAPY PHYSICAL THERAPY TREATMENT NOTE ASSESSMENT: Dave Slater tolerated the session with no issues. She demonstrated improvements in pelvic floor coordination, able to contract muscles without using accessory muscles. The patient will continue to benefit from ongoing skilled physical therapy to progress toward set goals. PLAN FOR NEXT VISIT: continue to progress exercises SUBJECTIVE: Patient Reason for Visit: Pt reports increased fecal incontinence, had to start wearing diapers since last session. Pt reports calling physician, office told her surgery was her next option, got a call from a surgeon but does not want surgery right now, plans on calling back with questions/concerns. Pt reports fair compliance with HEP. Pain: Pain Pain Level: 0 Post Treatment Pain Post Treatment Pain Level: 0 OBJECTIVE MEASURES WITH LEVEL OF FUNCTION: Pelvic Floor Surface EMG: Patient Position: sidelying Rest tone: 3 uV Flick strength: 10 uV Pt performed 4 quick flicks within 10 sec. Pt able to hold a 10 uV pelvic floor contraction for 2 seconds before demonstrating muscle fatigue. TREATMENT: Therapeutic Exercise: 1: Pelvic floor muscle contractions with visual assistance from biofeedback (see objective) 2: *kegal holds, 2sec hold with 2sec rest, 2x10 3: *bridge with glute activation, 2x10 Skilled Intervention: Patient was educated in proper exercise technique and purpose for exercises. Reviewed and educated patient on additions/changes for home exercise program as above (*). Skilled judgment was provided in selection of appropriate interventions. Provided written instruction for home exercise program to facilitate proper performance and compliance. Billing Therapeutic Exercise Treatment Minutes: 40 Total Treatment Time Minutes (timed and untimed codes) : 40 Rajiv Cartagena PT documented in this encounter [facility] 05-27-2021 Note HNO ID: [id number] Author: Rajiv Cartagena PT Service: ? Author Type: Physical Therapist Type: Progress Notes Filed: 05/27/2021 12:27 PM Note Text: Episode Visit Count: 1 Therapist That Will Oversee The Plan Of Care: Rajvi Cartagena Start of Care Date: 05/27/21 Onset Date: 05/27/20 Plan of Care Certification Date: 05/27/21 Next Certification Due Date: 08/25/21 Patient Identified by Name and Date of : Yes REHABILITATION AND SPORTS THERAPY PHYSICAL THERAPY EVALUATION PLAN OF CARE: Assessment: Dave Slater presents with diagnosis of rectal prolapse that interferes with compromised bowel function . She presents with impairments in decreased strength in pelvic floor, core, and BLE; decreased pelvic floor muscle coordination; impaired bowel function. Prognosis for therapy is Good due to: current objective clinical presentation . She will benefit from skilled therapy services to meet the goals established for this plan of care as noted below. Goals for Episode of Care: created on 05/27/21 through 08/25/21 [place] in home exercise program. Patient will demonstrate increase in core strength to at least 3+/5 during manual muscle testing in order to improve function for prior functional tasks. Patient will demonstrate increase in BLE strength to 5/5 during manual muscle testing in order to improve function for prior functional tasks. Incontinence: Increase strength of pelvic floor to Power: at least 3/5 Patient demonstrates ability to correctly isolate pelvic floor muscles Patient reports increased ability to fully empty bowels without straining Patient reports at least 75% improvement in fecal incontinence Patient Goals: improve bowel function Planned Interventions, Frequency, and Duration: Current Frequency: 1x/week Duration: 4 weeks (reassess at 4 weeks and progress as indicated) Total Number of Visits Planned: 4 Planned Treatment Interventions: Therapeutic exercise (89010);Manual therapy ([id number]);Self-assisted management ([id number]);Patient/Family/Caregiver Education PLAN FOR NEXT VISIT: biofeedback, progress strengthening exercises Patient demonstrates good understanding of plan of care and treatment. The above goals and plan of care were discussed and agreed upon by patient/family. SUBJECTIVE: Pt reports bowel issues began about one year ago. Pt reports daily fecal incontinence, describes it as little pellets. Pt denies pelvic pressure/heaviness. Patient Goals: improve bowel function Functional Limitations: compromised bowel function Prior Level of Function: Independent without limitations Relevant History Past Relevant Medical Conditions: (see note) Past Relevant Surgical Conditions: (see note) Employment: Retired Recreation / Current Exercise: None. Intake Information: Prescription present Previous Treatment: None Falls Interview: No positive findings with falls interview Aquatic Screen: No Pain: Pain Pain Level: 0 Post Treatment Pain Post Treatment Pain Level: 0 PROMIS Scales T-scores: mean of general population = 50. 5 points is clinically meaningfully difference Percentiles provide an indication of how the patient's score ranks in relation to the general population. Higher percentile rankings indicate better function/quality of life. 50th percentile is the average of the general population and indicates half of respondents had a worse score. T-scores: mean of general population = 50. 5 points is clinically meaningfully difference Percentiles provide an indication of how the patient's score ranks in relation to the general population. Higher percentile rankings indicate better function/quality of life. 50th percentile is the average of the general population and indicates half of respondents had a worse score. OBJECTIVE MEASURES WITH LEVEL OF FUNCTION: Pelvic Floor Pregnancies: 3 Births: 3 Vaginal Delivery: Standard Pain with penetration: No Urinary/Bowel History : Urinary History;Bowel History Difficulty starting stream: No Incomplete emptying: No Spraying: Yes Stress Incontinence: No Urgency: No Nocturia (times per night): 0 Daytime Frequency (hours): 2 Fluid Intake: Tea;Water;Pop/Diet Pop (8 oz measurements) Water : 4 (flavored water) Tea : 2 Pop/Diet Pop : 1 Difficulty evacuating / Excessive Straining: Sometimes Incomplete emptying: No Bowel Movement Frequency: 1x/day Bowel Movement Consistency (Choctaw) : 2: Sausage-shaped but lumpy;1: Seperate hard lumps, like nuts Fecal incontinence: Yes Solid stool: 2 or more times per day Pelvic Floor Muscle Assessment Consent for pelvic assessment/testing and treatment: Patient was educated regarding pelvic floor physical therapy assessment/treatment which may include pelvic floor and girdle muscle assessment externally or internally (vaginal or rectal approach).;Patient verbalized consent for the above treatment approaches today. Patient understand (more content not included)... [facility] 01-11-2021 Note HNO ID: [id number] Author: Dustin Renner MD Service: ? Author Type: Physician Type: Progress Notes Filed: 01/11/2021 7:13 AM Note Text: HISTORY AND PHYSICAL Dave Tiffany Anjum 1945 REFERRING PHYSICIAN: Self CHIEF COMPLAINT: New Patient (bowel changes) HPI: The patient is a 75 year old female referred for endoscopy. Vallie notes the following GI complaints: Vallie denies abdominal pain.. Vallie denies diarrhea. Vallie notes occasional constipation. Vallie denies a change in bowel habits. Vallie denies melena. Vallie denies bright red blood per rectum. Vallie denies hemorrhoids. The patient notes no history of upper GI complaints. Dave has undergone prior endoscopy. She underwent colonoscopy in August 2011. PAST MEDICAL HISTORY Diagnosis Date - Diverticulosis of colon (without mention of hemorrhage) Diverticulosis - Dysmetabolic syndrome X - Other and unspecified hyperlipidemia - Unspecified constipation - Unspecified essential hypertension - Unspecified hemorrhoids without mention of complication Hemorrhoids internal - Unspecified sleep apnea PAST SURGICAL HISTORY Procedure Laterality Date - COLONOSCOP W/ OR W/O [facility] SPE[facility] 2004 Colonoscopy - COLONOSCOP W/ OR W/O [facility] SPEC 08/29/11 normal colonoscopy repeat 10 years - LIGATE FALLOPIAN TUBE Tubal ligation / BILATERAL - PAST SURGICAL HISTORY OF 2009 prolapse rectocele repair - Dr Macario in [place], [place] Current Outpatient Medications Medication Sig - metFORMIN (GLUCOPHAGE) 500 mg tablet Take 1 tablet by mouth twice daily. - Boyden-3 Fatty Acids-Vitamin E (FISH OIL) 1,000 mg Cap Take 1 capsule by mouth. - Cetirizine (ZYRTEC) 10 mg Cap Take by mouth. - ASPIRIN 325 MG ORAL TAB Take one (1) tablet daily . - polyethylene glycol 3350 (MIRALAX, GLYCOLAX) 17 gram/dose powder Use as directed for Miralax / Gatorade Bowel Prep Kit - Gatorade Sports Drink Use as directed for Miralax / Gatorade Bowel Prep Kit - Bisacodyl (DULCOLAX) 5 mg tab Use as directed for Miralax / Gatorade Bowel Prep Kit - ramipril (ALTACE) 2.5 mg capsule (Patient not taking: Reported on 01/06/2021 ) - VICTOZA 2-JUSTIN 0.6 mg/0.1 mL (18 mg/3 mL) pnij (Patient not taking: Reported on 01/06/2021 ) No current facility-administered medications for this visit. ALLERGIES: Grass Pollen PERSONAL HISTORY: Social History Tobacco Use - Smoking status: Former Smoker - Smokeless tobacco: Never Used - Tobacco comment: Quit in 1973 Substance Use Topics - Alcohol use: Yes Comment: occasionally - Drug use: No FAMILY HISTORY: FAMILY HISTORY Problem Relation Age of Onset - Hypertension Mother - Heart Mother STROKE - Diabetes Mother - Lipids Mother High Cholesterol - Hypertension Father - Heart Father STROKE - Diabetes Father - Lipids Father High Cholesterol - Cancer Father skin -not melanoma REVIEW OF SYMPTOMS: The review of systems data was entered by the nurse and reviewed by dc Nursing Notes: Conchita Kahn Ma 01/06/2021 9:45 AM Signed REVIEW OF SYSTEMS: General: The patient denies fatigue, denies weight loss, denies weight gain, denies feeling hot, and denies feelings of cold. Eyes: The patient denies glaucoma, denies eye injury/surgery, wears glasses or contacts. Ear/Nose/Throat: The patient denies allergies, denies hayfever, denies ear infections, and denies bloody noses. Cardiovascular: The patient denies chest pain, denies heart disease, notes high blood pressure,denies cardiac stent, denies prior heart attack, denies irregular heart beat, notes high cholesterol, denies poor circulation, denies heart failure, other cardiac issues, denies claudication, denies cold feet, denies peripheral arterial stent. Respiratory: The patient denies tuberculosis, denies pneumonia, denies frequent cough, denies pulmonary embolism, denies shortness of breath, and denies coughing up blood. Gastrointestinal: The patient denies difficulty swallowing, denies acid reflux, denies ulcers, denies vomiting, denies jaundice/hepatitis, denies gallbladder problems, denies black or tarry stools, denies hemorrhoids, denies bleeding from rectum, denies diverticulitis, notes constipation, denies diarrhea, notes loss of stool control, and denies hernias. Kidney/Bladder: The patient denies kidney stones, denies urine infections, and denies bloody urine. Skin: The patient denies a history of skin cancer, denies bleeding/changing moles, and denies a history of skin rash. Neurologic: The patient denies a history of epilepsy/convulsions, denies headaches, denies head/spinal injuries, and denies stroke/TIA. Psychiatric: The patient denies psychiatric medications, denies depression, and denies voices, denies substance abuse. Endocrine: The patient denies thyroid disorders, notes diabetes, and denies hormonal problems. Hematologic: The patient denies a history of bruising, denies bleeding, and denies anemia, denies bl (more content not included)... [facility] 07-03-2019 History of Present illness Narrative GI/Ref: Sylvester Haas is a 76 yo female with rectal prolapse. She has a history of alternating constipation and urgent diarrhea with incontinence that started about 2 years ago. Her stool is hard and pebble shaped when it leaks, and solid/normal when she has BMs in the toilet. She feels like she does not completely empty with BM s.. She moves her bowels once per day. Her stool is formed but soft. No urgency. She has started PFPT and has no episodes of leaking/incontience for the last week. She had one episode of prolapsing tissue with diarrhea in the setting of an illness. She does not take any fiber.Colonoscopy 04/27/21 (Friend): Decreased sphincter tone and rectal prolapse found on HERNANDO. Congested mucosa in the sigmoid colon, at the splenic flexure, at the hepatic flexure and in the ascending colon. Biopsied. Pathology demonstrating no pathological diagnosis. Diverticulosis in the recto-sigmoid colon, in the sigmoid colon and in the transverse colon. Stricture in the sigmoid colon. Repeat in 10 years.Non-smoker/No ETOH/No Illicit drug usePMH: anxiety, depression, DM, GERD, HLD, HTNPSH: hysterectomy & BSONKDANo family history of CRC or IBD [id number] [address] Work Phone: 07-02-2019 History of Present illness Narrative GI/Ref: Sylvester Haas is a 76 yo female with rectal prolapse. She has a history of alternating constipation and urgent diarrhea with incontinence that started about 2 years ago. Her stool is hard and pebble shaped. She feels like she does not completely empty with BM s. Some incontinence with a small amount of stool. She moves her bowels once per day. Her stool is formed but soft. No urgency. Her main complaint is that she has incontinence of a small amount of stool after a bowel movement. This has not happened in the last week. She had one episode of prolapsing tissue with diarrhea. She does not take any fiber.Colonoscopy 04/27/21 (Friend): Decreased sphincter tone and rectal prolapse found on HERNANDO. Congested mucosa in the sigmoid colon, at the splenic flexure, at the hepatic flexure and in the ascending colon. Biopsied. Pathology demonstrating no pathological diagnosis. Diverticulosis in the recto-sigmoid colon, in the sigmoid colon and in the transverse colon. Stricture in the sigmoid colon. Repeat in 10 years.Non-smoker/No ETOH/No Illicit drug usePMH: anxiety, depression, DM, GERD, HLD, HTNPSH: hysterectomy & BSONKDANo family history of CRC or IBD DO NOT USE - [facility] [address] [facility] ([place]) Work Phone: documented as of this encounter (statuses as of 06/10/2021) [facility]04-04-2006 History of Past illness Narrative* Problem Noted Date Resolved Date Diarrhea 06/13/2005 08/27/2006 documented as of this encounter (statuses as of 06/17/2021) [address]04-2006 History of Past illness Narrative* Problem Noted Date Resolved Date Diarrhea 06/13/2005 08/27/2006 documented as of this encounter (statuses as of 06/28/2021) [place] [address]-04-2006 History of Past illness Narrative* Problem Noted Date Resolved Date Diarrhea 06/13/2005 08/27/2006 documented as of this encounter (statuses as of 07/22/2021) [facility] Rectal prolapse- Primary Muscle weakness Muscle weakness (generalized) [facility] encounter [facility] Diagnosis Rectal prolapse- Primary Muscle weakness Muscle weakness (generalized) [facility]* Diagnosis Rectal prolapse- Primary Muscle weakness Muscle weakness (generalized) documented in this encounter [facility] Summary Purpose Family History No Family History Records FoundNo Family History Records FoundNo Family History Records FoundNo Family History Records Found Advance Directives No Advanced Directives Records FoundNo Advanced Directives Records FoundNo Advanced Directives Records FoundNo Advanced Directives Records Found Chief Complaint Rectal prolapseRectal prolapse Additional Source Comments INFORMATION SOURCE (unrecogn ized section and content) DATE CREATED AUTHOR AUTHOR'S ORGANIZ ATION 12/07/2020 [employer] DATE CREATED AUTHOR AUTHOR'S ORGANIZ ATION 07/04/2021 [employer] DATE CREATED AUTHOR AUTHOR'S ORGANIZ ATION 08/09/2021 [facility] Source Comments (unrecognize d section and content) In the event this informatio n is protected by the Federal Confidentiality of Alcohol and Drug Abuse Patient Records regulations: The Federal rules restrict any use of the information to criminally investigate or prosecute any alcohol or drug abuse patient.[facility] the event this information is protected by the Federal Confidentiality of Alcohol and Drug Abuse Patient Records regulations: The Federal rules restrict any use of the information to criminally investigate or prosecute any alcohol or drug abuse patient.[facility] the event this information is protected by the Federal Confidentiality of Alcohol and Drug Abuse Patient Records regulations: The Federal rules restrict any use of the information to criminally investigate or prosecute any alcohol or drug abuse patient.[facility] the event this information is protected by the Federal Confidentiality of Alcohol and Drug Abuse Patient Records regulations: The Federal rules restrict any use of the information to criminally investigate or prosecute any alcohol or drug abuse patient.[facility] Reason for Visit (unrecogniz ed section and content) Specialty Diagnoses / Procedures Referred By Contac t Referred To Contact Physical Therapy / PHYSICAL THERAPY Diagnoses Rectal prolapse Rectal prolapse K62.3 Procedures NEW RS PT PELVIC PAIN/INCONT FriendReynold(Historical), DO [place], PT [address] [place] [address] Referral ID Status Reason Start Date Expiration Date V isits Requested Visits Authorized [id number] Authorized 03/12/2021 03/11/2022 99 99 Reason Comments PT Progress Note Care Teams (unrecognized sec tion and content) [employer] Relationship Specialty Start Date End Date Nicole Garcia MD PCP - General Internal Medicine 08/09/11 [employer] Chair Relationship Specialty Start Date End Date Nicole Garcia MD PCP - General Internal Medicine 08/09/11 FOR RECORDS PERTAINING TO PATIENTS WHO ARE OR HAVE BEEN ENROLLED IN A CHEMICAL DEPENDENCY/SUBSTANCEABUSE PROGRAM, SOME INFORMATION MAY BE OMITTED. This clinical summary was aggregated from multiple sources. Caution should be exercised in using it in the provision of clinical care. This summary normalizes information from multiple sources, and as a consequence, information in this document may materially change the coding, format and clinical context of patient data. In addition, data may be omitted in some cases. CLINICAL DECISIONS SHOULD BE BASED ON THE PRIMARY CLINICAL RECORDS. [employer] provides no warranty or guarantee of the accuracy or completeness of information in this document.
== END | disposition home or self-care (01) ==
LOC: MTLAB 12:39
PROVIDERS: PCP Internal Medicine; Referring Provider Psychiatry & Neurology Neurology; Visit Provider Psychiatry & Neurology Neurology
DX: R53.83 Other fatigue (principal); R44.3 Hallucinations, unspecified; R26.9 Unspecified abnormalities of gait and mobility
CPT/HCPCS: 81001; 87086

== ENCOUNTER → 2023-07-23 | Outpatient (CLI) | payer MEDICARE, SELFPAY ==
[2023-07-23 12:12] LABS: Absolute Lymphocyte Count 2.09 X10^3/uL (0.83-4.51); Basophil# 0.05 X10^3/uL; Basophil% 0.7 % (0-1); Eosinophil# 0.22 X10^3/uL; Eosinophils% 3.2 % (0-5); Hematocrit 40.2 % (37-47); Hemoglobin 13.2 g/dL (12.0-15.0); Lymphocyte # 2.09 X10^3/ul (0.83-4.51); Lymphocyte % 30.2 % (19-41); Mean Corp Hgb Conc 32.8 g/dL (32-36); Mean Corpuscular Hgb 30.6 pg (27.0-32.0); Mean Corpuscular Volume 93.1 fL (81-99); Mean Platelet Vol. 9.8 fl (6.2-12.0); Monocyte# 0.58 X10^3/uL; Monocyte% 8.4 % (0-10); NRBC Flagged by Analyzer 0 % (0-5); Neutrophil # 3.96 X10^3/uL (2.7-7.7); Neutrophil % 57.2 % (47-70); Platelet Count 312 K/mm3 (150-450); RBC Distribution Width SD 41.3 fl (35.1-43.9); Red Blood Count 4.32 M/mm3 (4.2-5.4); White Blood Count 6.9 K/mm3 (4.4-11.0)
[2023-07-23 12:32] LABS: ALB/GLOB Ratio 1.1 RATIO (0.9-2.4); AST(SGOT) 21 U/L (15-37); Alanine Aminotransfer ALT/SGPT 22 U/L (13-56); Alkaline Phosphatase 93 U/L (45-117); Anion Gap 2 (5-15); BUN 18 mg/dL (7-18); BUN/Creat Ratio 19.1 RATIO (10-20); Chloride 106 mmol/L (98-107); Creatinine, Serum 0.94 mg/dL (0.55-1.02); EST Glomerular Filtration Rate 61 mL/min (>60); Est Glom Filt Rate - Afr Amer 74 mL/min (>60); Globulin 3.7 g/dL (2.2-4.2); Glucose 92 mg/dL (74-106); Potassium 3.9 mmol/L (3.5-5.1); Protein, Total 7.7 g/dL (6.4-8.2); Sodium Level 140 mmol/L (136-145)
[2023-07-23 17:35] LABS: Vitamin D,25 Hydroxy 57.4 ng/mL
== END | disposition home or self-care (01) ==
LOC: BIMLAB 09:36
PROVIDERS: PCP Internal Medicine; Visit Provider Internal Medicine
DX: I10 Essential (primary) hypertension (principal); E55.9 Vitamin D deficiency, unspecified
CPT/HCPCS: 36415; 80053; 82306; 85025

== ENCOUNTER → 2023-08-10 | Outpatient (CLI) | payer MEDICARE, SELFPAY ==
[2023-08-10 10:19] LABS: Absolute Lymphocyte Count 1.36 X10^3/uL (0.83-4.51); Absolute Neutrophil Count 6.4 X10^3/uL (2.0-7.7); Basophil# 0.05 X10^3/uL; Basophil% 0.6 % (0-1); Eosinophil# 0.23 X10^3/uL; Eosinophils% 2.6 % (0-5); Hematocrit 37.8 % (37-47); Hemoglobin 12.4 g/dL (12.0-15.0); Lymphocyte # 1.36 X10^3/ul (0.83-4.51); Lymphocyte % 15.4 % (19-41); Mean Corp Hgb Conc 32.8 g/dL (32-36); Mean Corpuscular Hgb 30.4 pg (27.0-32.0); Mean Corpuscular Volume 92.6 fL (81-99); Mean Platelet Vol. 9.4 fl (6.2-12.0); Monocyte# 0.73 X10^3/uL; Monocyte% 8.3 % (0-10); NRBC Flagged by Analyzer 0 % (0-5); Neutrophil # 6.44 X10^3/uL (2.7-7.7); Neutrophil % 72.9 % (47-70); Platelet Count 295 K/mm3 (150-450); RBC Distribution Width CV 12.1 % (11.6-14.6); RBC Distribution Width SD 41.4 fl (35.1-43.9); Red Blood Count 4.08 M/mm3 (4.2-5.4); White Blood Count 8.8 K/mm3 (4.4-11.0)
[2023-08-10 10:46] LABS: ALB/GLOB Ratio 0.9 RATIO (0.9-2.4); AST(SGOT) 14 U/L (15-37); Alanine Aminotransfer ALT/SGPT 15 U/L (13-56); Albumin, Serum 3.5 g/dL (3.2-5.0); Alkaline Phosphatase 81 U/L (45-117); Anion Gap 6 (5-15); BUN 15 mg/dL (7-18); BUN/Creat Ratio 15.2 RATIO (10-20); Calcium,Total 9.6 mg/dL (8.5-10.1); Chloride 105 mmol/L (98-107); Creatinine, Serum 0.99 mg/dL (0.55-1.02); EST Glomerular Filtration Rate 58 mL/min (>60); Est Glom Filt Rate - Afr Amer 70 mL/min (>60); Globulin 3.7 g/dL (2.2-4.2); Glucose 101 mg/dL (74-106); Potassium 3.2 mmol/L (3.5-5.1); Protein, Total 7.2 g/dL (6.4-8.2); Sodium Level 139 mmol/L (136-145); Thyroid Stim Hormone (TSH) 1.31 uIU/mL (0.358-3.74)
[2023-08-10 11:53] LABS: PTHIN 29.1 pg/mL (18.4-80.1)
[2023-08-10 18:22] LABS: Vitamin B12 287 pg/mL (211-911); Vitamin D,25 Hydroxy 43.1 ng/mL
== END | disposition home or self-care (01) ==
LOC: MTLAB 08:26
PROVIDERS: PCP Internal Medicine; Referring Provider Physician Assistant; Visit Provider Physician Assistant
DX: G45.9 Transient cerebral ischemic attack, unspecified (principal); E55.9 Vitamin D deficiency, unspecified; R53.83 Other fatigue
CPT/HCPCS: 36415; 80053; 82306; 82607; 83735; 83970; 84443; 85025; 86140

== ENCOUNTER 2023-08-11 13:09 | Emergency (ER) | payer MEDICARE, SELFPAY ==
[2023-08-11 13:10] VITALS: BP 171/93; PULSE 90; RESP 12; TEMP 37.4; O2SAT 95; BMI 23.9
[2023-08-11 13:12] VITALS: BP 171/93; PULSE 90; RESP 12; TEMP 37.4; O2SAT 95
--- NOTE | 2023-08-11 13:22 | EX.ED.DYSGE1 ---
HPI History of Present Illness Chief Complaint: Alt LOC Detail of Chief Complaint: Altered mental status Informant: spouse/S.O. and family Onset/Context/Timing Onset: Today (Today and on Sunday, August 07) Context: Sudden Onset Timing: Continuous Quality: Nonverbal, has been sitting in the chair since 0600 Current Severity: Unable to determine Maximum Severity: Unable to determine Worsened by: Unknown Relieved by: Nothing Associated Symptoms Associated Symptoms: Unable to determine Narrative Narrative: Patient is a 78-year-old woman with history of TIA, Alzheimer's dementia, type 2 diabetes, mild cognitive impairment, hyperlipidemia and hypertension. She also has history of anxiety and depression. Patient was sitting in a chair send 0600. is the informant. states this occurred on Sunday. Seen by Dr. Narayanan's midlevel, josephine. He is very pleased with josephine. He states he received a call last evening that all the blood work that was obtained was normal. This was reviewed and everything was normal. Patient has had recent thyroid test which were negative. Prior similar symptoms: Yes Recent [facility] Medical History Flu vaccine need Multiple falls Lumbar radiculopathy Post-menopausal Somnolence Henson esophagus GERD (gastroesophageal reflux disease) Dementia Wears glasses History of COVID-19 Alcohol use Injury of head and neck Former smoker CPAP (continuous positive airway pressure) dependence Leg cramps History of stress test History of hemangioma Anxiety and depression Displaced fracture of proximal phalanx of right ring finger, sequela Displaced fracture of proximal phalanx of right little finger, sequela Trigger finger, right ring finger Allergy Ganglion cyst of dorsum of left wrist Hoarseness Right hand fracture Throat dryness Squamous cell skin cancer Family history of skin cancer Digital mucous cyst of finger of right hand Home Medications ?Medication ?Instructions ?Recorded ?Last Taken ?Type cetirizine 10 mg capsule (Zyrtec) 10 mg PO DAILY PRN ALLERGIES 08/04/21 Unknown History ascorbic acid (vitamin C) 500 mg 500 mg PO DAILY 04/24/22 Unknown History tablet (Vitamin C) cholecalciferol (vitamin D3) 50 50 mcg PO DAILY 04/24/22 Unknown History mcg (2,000 unit) capsule (Vitamin D3) montelukast 10 mg tablet 10 mg PO DAILY 04/24/22 Unknown History (Abdullahiulair) atorvastatin 20 mg tablet 20 mg PO QDAY #90 tabs 02/20/23 Unknown Rx donepezil 5 mg tablet 5 mg PO QAM #90 tabs 04/17/23 Unknown Rx colestipol 1 gram tablet 1 g PO BID #180 tabs 05/03/23 Unknown Rx valsartan 80 mg tablet 80 mg PO BID #60 tabs 05/28/23 Unknown Rx bupropion HCl 150 mg 24 hr tablet, 75 mg PO QAM 08/09/23 Unknown History extended release modafinil 100 mg tablet 50 mg PO DAILY 08/09/23 Unknown History Allergy/AdvReac Type Severity Reaction Status Date / Time No Known Allergies Allergy Verified 08/09/23 15:49 Family History Mother Asthma Diabetes Hypertension Hyperlipidemia CVA (cerebral vascular accident) Cancer History of blood clots Father Asthma Diabetes Hypertension Hyperlipidemia CVA (cerebral vascular accident) Cancer Skin cancer History of blood clots Surgical History History of esophagogastroduodenoscopy (EGD) Hx of colonoscopy History of surgical removal of ganglion cyst excision of ganglion mucus cyst AP repair History of salpingo-oophorectomy H/O laparoscopy H/O: hysterectomy History of bilateral tubal ligation Social History Smoking Status: Former smoker how long ago did patient quit smokin alcohol intake: current alcohol intake frequency: a few times a week Alcohol type: wine details: OCCASINALLY substance use type: does not use what type of physical activity do you participate in: none maura/bahai: [employer] seatbelt use: always additional social history: DOES USE ASPIRIN DOES NOT USE IBUPROFEN ROS ROS ED Review of Systems ROS Unobtainable: due to mental condition and due to mental status EXAM Physical Exam Const Vital Signs: 08/11/23 13:10 08/11/23 13:12 08/11/23 14:12 Temperature 99.4 F H 99.4 F H 99.4 F H Temperature Source Oral Oral Oral Pulse Rate 90 90 85 Respiratory Rate 12 12 14 Blood Pressure 171/93 H 171/93 H 150/94 H Blood Pressure Mean 119 119 112 Pulse Ox 95 95 97 Oxygen Delivery Method Room Air Room Air Room Air Positive well nourished and well developed Constitutional Narrative: Patient had a startle response. Arm was placed above head and came slowly down missing her head and then held in upright position off the bed. General Appearance ED: well developed, NAD and pallor HEENT Reports moist mucous membranes HEENT Narrative: Head is atraumatic, cephalic. Ears normal. TMs normal. Nares patent. Posterior pharynx is normal. Eyes PERRL and EOMs intact bilaterally Eyes Narrative: During the history and physical patient kept her eyes closed. She did not resist when I opened her legs. General Eye ED: Negative for pale conjunctiva or scleral icterus Neck no lymphadenopathy, supple and no JVD Resp normal respiratory effort and clear to auscultation bilaterally Cardio regular rate, regular rhythm, S1 normal heart sound, S2 normal heart sound and no murmurs GI normal to inspection, nondistended, normoactive bowel sounds, non-tender, non-distended and no masses; Negative for hepatosplenomegaly Extremity normal to inspection General Extremety ED: Negative for edema or tenderness General Extremity: Negative for edema Neuro no sensory deficits noted Neuro Narrative: Unable to determine Psych Psych Narrative: Patient has a masked face. Skin no rashes or lesions noted, no wounds and No skin turgor normal Skin Narrative: Face is flushed. General Skin Exam: pallor; Negative for jaundice MDM MDM MDM Narrative Medical decision making narrative: Need to evaluate for metabolic infectious etiology. Also need to consider psychiatric etiology and possibly conversion reaction which may be related to her dementia and is in all likelihood the cause of her hallucinations. informing that she has been having hallucinations recently. Blood work from yesterday was reviewed. CBC was obtained as well as UA. CBC is a repeat from yesterday UA was not obtained yesterday or recently. Since she had recent thyroid studies as well as B12, folate and these were all negative within the past month they were not repeated. Sensory exam is nonfocal CT of the head in my opinion is not indicated or warranted. Lab Data Attestation: I reviewed the patient's lab results. Lab results narrative: CBC is normal. UA is normal. Labs: Laboratory Results - last 24 hr 08/11/23 08/11/23 12:55 13:35 WBC 9.7 RBC 4.29 Hgb 12.9 Hct 39.1 MCV 91.1 MCH 30.1 MCHC 33.0 RDW Std Deviation 40.1 RDW Coeff of David 12.0 Plt Count 308 MPV 9.1 Immature Gran % (Auto) 0.200 Neut % (Auto) 71.7 H Lymph % (Auto) 18.3 L Esmeralda % (Auto) 7.5 Eos % (Auto) 1.8 Baso % (Auto) 0.5 Absolute Neuts (auto) 7.0 Absolute Lymphs (auto) 1.78 Nucleated RBC % 0 Urine Color Yellow Urine Clarity Clear Urine pH 6.5 Ur Specific Conklin 1.010 Urine Protein Negative Urine Glucose (UA) Normal Urine Ketones Negative Urine Occult Blood Negative Urine Nitrite Negative Urine Bilirubin Negative Urine Urobilinogen Normal Ur Leukocyte Esterase Negative Urine RBC 0 SEEN Urine WBC 0 SEEN Ur Squamous Epith Cells 0 SEEN Urine Bacteria 0 SEEN Urine Mucus 0 SEEN Treatment and Re-Evaluation :: was informed of results. was informed that my suspicion is this is her dementia compounded by affective disorder and suspect that she has a conversion reaction. As of 144 patient's back to baseline. She is interactive with her daughter. She is speaking with her . Discharge Plan Triage Chief Complaint: Alt LOC ED Provider: Broderick Espana Dx/Rx/DC Orders Clinical Impression: Acute alteration in mental status, Dementia, Cerebrovascular disease, Anxiety and depression, Conversion reaction Instructions: Depression Affects Your Mind ..., ED ALOC, ED Conversion Reaction Prescriptions: No Action Zyrtec 10 mg capsule 10 mg PO DAILY PRN (Reason: ALLERGIES) donepezil 5 mg tablet 5 mg PO QAM Qty: 90 1RF modafinil 100 mg tablet 50 mg PO DAILY Patient Comments: take 1/2 to 1 tablet by mouth daily if needed colestipol 1 gram tablet 1 g PO BID Qty: 180 3RF bupropion HCl 150 mg tablet extended release 24 hr 75 mg PO QAM ascorbic acid (vitamin C) [Vitamin C] 500 mg Tablet 500 mg PO DAILY montelukast [Singulair] 10 mg Tablet 10 mg PO DAILY cholecalciferol (vitamin D3) [Vitamin D3] 50 mcg (2,000 unit) Capsule 50 mcg PO DAILY atorvastatin 20 mg tablet 20 mg PO QDAY Qty: 90 3RF valsartan 80 mg tablet 80 mg PO BID Qty: 60 0RF Primary Care Provider: Desean Cartagena Referrals: Desean Cartagena MD [Primary Care Provider] - 5-7 Days Print Language: [place] Disposition Disposition: Home, Self Care
[2023-08-11 13:29] LABS: Absolute Lymphocyte Count 1.78 X10^3/uL (0.83-4.51); Basophil# 0.05 X10^3/uL; Basophil% 0.5 % (0-1); Eosinophil# 0.18 X10^3/uL; Eosinophils% 1.8 % (0-5); Hematocrit 39.1 % (37-47); Hemoglobin 12.9 g/dL (12.0-15.0); Lymphocyte # 1.78 X10^3/ul (0.83-4.51); Lymphocyte % 18.3 % (19-41); Mean Corpuscular Hgb 30.1 pg (27.0-32.0); Mean Corpuscular Volume 91.1 fL (81-99); Mean Platelet Vol. 9.1 fl (6.2-12.0); Monocyte# 0.73 X10^3/uL; Monocyte% 7.5 % (0-10); NRBC Flagged by Analyzer 0 % (0-5); Neutrophil # 6.98 X10^3/uL (2.7-7.7); Neutrophil % 71.7 % (47-70); Platelet Count 308 K/mm3 (150-450); RBC Distribution Width SD 40.1 fl (35.1-43.9); Red Blood Count 4.29 M/mm3 (4.2-5.4); White Blood Count 9.7 K/mm3 (4.4-11.0)
[2023-08-11 13:39] LABS: Bacteria 0 SEEN /hpf (None Seen); Mucous, Urine 0 SEEN /hpf (<or=2+); Red Blood Cells-Urine 0 SEEN /hpf (0-5); Squamous Epithelial Cells - UA 0 SEEN /hpf (5-10); White Blood Cells 0 SEEN /hpf (0-5)
[2023-08-11 14:01] LABS: Color, Urine Yellow (Yellow); Glucose, Dipstick Normal (Normal); Ketone-Dipstick Negative (Negative); Leukocyte Esterase-Dipstick Negative /ul (Negative); Nitrite-Dipstick Negative (Negative); Occult Blood-Urine Negative /ul (Negative); Protein-Dipstick Negative (Negative); Urine Bilirubin Dipstick Negative (Negative); Urine Clarity Clear (Clear); Urine Urobilinogen Normal (Normal); Urine pH 6.5 (5.0 - 8.0)
[2023-08-11 14:12] VITALS: BP 150/94; PULSE 85; RESP 14; TEMP 37.4; O2SAT 97
[2023-08-11 14:52] VITALS: BP 161/88; PULSE 82; RESP 13; TEMP 36.7; O2SAT 96
== END 2023-08-11 14:57 | disposition home or self-care (01) ==
PROVIDERS: Emergency Provider Emergency Medicine; PCP Internal Medicine; Visit Provider Emergency Medicine
DX: R41.82 Altered mental status, unspecified (principal); F02.80 Dementia in other diseases classified elsewhere, unspecified severity, without behavioral disturbance, psychotic disturbance, mood disturbance, and anxiety; G30.9 Alzheimer's disease, unspecified; Z87.891 Personal history of nicotine dependence; I10 Essential (primary) hypertension; E78.5 Hyperlipidemia, unspecified; F32.A Depression, unspecified; F41.8 Other specified anxiety disorders; I67.9 Cerebrovascular disease, unspecified; Z86.73 Personal history of transient ischemic attack (TIA), and cerebral infarction without residual deficits; Z79.899 Other long term (current) drug therapy; Z90.710 Acquired absence of both cervix and uterus; Z98.51 Tubal ligation status
CPT/HCPCS: 81001; 85025; 99284; P9612

== ENCOUNTER → 2023-08-16 | Outpatient (CLI) | payer MEDICARE, SELFPAY ==
[2023-08-16 18:46] LABS: ALB/GLOB Ratio 0.8 RATIO (0.9-2.4); AST(SGOT) 15 U/L (15-37); Alanine Aminotransfer ALT/SGPT 14 U/L (13-56); Albumin, Serum 3.3 g/dL (3.2-5.0); Alkaline Phosphatase 89 U/L (45-117); Anion Gap 9 (5-15); BUN 14 mg/dL (7-18); BUN/Creat Ratio 16.2 RATIO (10-20); Calcium,Total 9.7 mg/dL (8.5-10.1); Chloride 104 mmol/L (98-107); Creatinine, Serum 0.86 mg/dL (0.55-1.02); EST Glomerular Filtration Rate 68 mL/min (>60); Est Glom Filt Rate - Afr Amer 82 mL/min (>60); Globulin 4.4 g/dL (2.2-4.2); Glucose 85 mg/dL (74-106); Magnesium 2.4 mg/dL (1.6-2.6); Potassium 3.4 mmol/L (3.5-5.1); Protein, Total 7.7 g/dL (6.4-8.2); Sodium Level 140 mmol/L (136-145)
== END | disposition home or self-care (01) ==
LOC: MTLAB 15:52
PROVIDERS: PCP Internal Medicine; Referring Provider Psychiatry & Neurology Neurology; Visit Provider Psychiatry & Neurology Neurology
DX: G40.909 Epilepsy, unspecified, not intractable, without status epilepticus (principal); E87.6 Hypokalemia
CPT/HCPCS: 36415; 80053; 83735

== ENCOUNTER → 2023-08-24 | Outpatient (CLI) | payer MEDICARE, SELFPAY | END | disposition home or self-care (01) | LOC: MRI 07:55 | PROVIDERS: PCP Internal Medicine; Referring Provider Psychiatry & Neurology Neurology; Visit Provider Psychiatry & Neurology Neurology | DX: G40.909 Epilepsy, unspecified, not intractable, without status epilepticus (principal); G30.1 Alzheimer's disease with late onset; F02.83 Dementia in other diseases classified elsewhere, unspecified severity, with mood disturbance; R44.3 Hallucinations, unspecified | CPT/HCPCS: 95819 ==

== ENCOUNTER → 2023-08-27 | Outpatient (CLI) | payer MEDICARE, SELFPAY ==
[2023-08-27 16:11] LABS: Erythrocyte Sedimentation Rate 16 mm/hr (0-30)
[2023-08-27 20:36] LABS: Anion Gap 6 (5-15); BUN 13 mg/dL (7-18); BUN/Creat Ratio 15.1 RATIO (10-20); Calcium,Total 9.7 mg/dL (8.5-10.1); Chloride 105 mmol/L (98-107); Creatinine, Serum 0.86 mg/dL (0.55-1.02); EST Glomerular Filtration Rate 68 mL/min (>60); Est Glom Filt Rate - Afr Amer 82 mL/min (>60); Glucose 91 mg/dL (74-106); Potassium 4.6 mmol/L (3.5-5.1); Sodium Level 142 mmol/L (136-145)
[2023-08-27 22:21] LABS: CRP < 2.90 mg/L (0.0-3.0)
== END | disposition home or self-care (01) ==
LOC: BIMLAB 12:07
PROVIDERS: PCP Internal Medicine; Visit Provider Internal Medicine
DX: R79.82 Elevated C-reactive protein (CRP) (principal); I10 Essential (primary) hypertension
CPT/HCPCS: 36415; 80048; 85652; 86140

== ENCOUNTER → 2023-08-30 | Outpatient (CLI) | payer MEDICARE, SELFPAY ==
--- NOTE | 2023-08-30 07:41 | MRI_ITS ---
EXAM: MR HEAD WITHOUT AND WITH INTRAVENOUS CONTRAST CLINICAL INDICATION: altered mental status; possible atonic seizures TECHNIQUE: Multiplanar and multisequence MR images of the brain were obtained without and with intravenous contrast. CONTRAST: IV Yes YES COMPARISON: CT head, 05/16/2018 FINDINGS: BRAIN AND EXTRA-AXIAL SPACES: There is global parenchymal volume loss with commensurate enlargement of the supratentorial ventricles and the sulcal spaces. There is no lobar predilection for volume loss based on subjective assessment. There is no restricted diffusion to indicate recent infarct or other pathology. Periventricular and subcortical T2 and T2 FLAIR hyperintense foci are nonspecific although most commonly due to chronic microvascular ischemic changes in a patient of this age. Posterior fossa structures are unremarkable. Basal cisterns are patent. No intracranial hemorrhage or pathologic extra-axial fluid. No pathologic parenchymal mineralization. The hippocampi mamillary bodies appear normal and symmetric. Normal and symmetric fornices. No pathologic parenchymal or meningeal enhancement. No intracranial mass or mass effect. No shift of midline structures. SELLA: No significant abnormality. Normal sella turcica, pituitary gland, infundibular stalk, optic chiasm and hypothalamus. AUDITORY SYSTEM: No significant abnormality. The internal auditory canals are patent. BONES/JOINTS: No calvarial or skull base signal abnormality. SINUSES: Normal as visualized. Clear. MASTOID AIR CELLS: Normal as visualized. Clear. ORBITS: Normal as visualized. Both globes, extraocular muscles, optic nerves and retrobulbar fat appear unremarkable. VASCULATURE: Normal as visualized. Normal flow voids in the major intracranial circulation. MRI/Brain W/WO Contrast IMPRESSION: Chronic microvascular ischemic changes and global parenchymal volume loss. No discrete evidence of hippocampal sclerosis. Electronically Signed: Emmanuel Chua DO at 0:00 EDT ,
== END | disposition home or self-care (01) ==
LOC: MRI 07:32
PROVIDERS: PCP Internal Medicine; Referring Provider Psychiatry & Neurology Neurology; Visit Provider Psychiatry & Neurology Neurology
DX: G30.1 Alzheimer's disease with late onset (principal); F02.83 Dementia in other diseases classified elsewhere, unspecified severity, with mood disturbance; G40.909 Epilepsy, unspecified, not intractable, without status epilepticus; R44.3 Hallucinations, unspecified
CPT/HCPCS: 70553; A9575

== ENCOUNTER → 2023-11-14 | Outpatient (CLI) | payer MEDICARE, SELFPAY ==
--- NOTE | 2023-11-14 08:58 | BI_ITS ---
MAMMOGRAPHY - BILATERAL SCREENING REASON FOR EXAM: Female, 78 years old. Routine annual screening examination. PERTINENT HISTORY: Aunt with breast cancer. TECHNIQUE: Digital bilateral breast quiana (3D mammographic acquisition) in the CC and MLO projections. 2-D mediolateral oblique (MLO) and craniocaudad (CC) views of both breasts were obtained. CAD: Full Field Digital Mammography with Computer Added Detection was performed. COMPARISON: Comparison is made with prior study dated November 08, 2022 and November 07, 2021. FINDINGS: Breast Composition: The breasts are heterogeneously dense, which may obscure small masses. There are no dominant masses or suspicious calcifications. No other significant abnormalities are identified. There has been no significant change since the prior study. BI/SCRN MAMM (CAD)W/QUIANA BILAT IMPRESSION: Stable bilateral screening mammogram. Yearly follow-up mammogram recommended. (A) ASSESSMENT CATEGORY: BIRADS Category 1: Negative. A letter regarding these results will be sent to the patient by the facility within 30 days. Approximately 10% of breast cancers are not detected by mammography. A normal mammogram should not delay biopsy of a clinically suspicious abnormality. [id number] Electronically Signed: Bairon Peterson MD at 10:23 EDT ,
== END | disposition home or self-care (01) ==
LOC: OPBI 08:58
PROVIDERS: PCP Internal Medicine; Referring Provider Internal Medicine; Visit Provider Internal Medicine
DX: Z12.31 Encounter for screening mammogram for malignant neoplasm of breast (principal); Z80.3 Family history of malignant neoplasm of breast
CPT/HCPCS: 77063; 77067

== ENCOUNTER → 2023-11-27 | Outpatient (CLI) | payer MEDICARE, SELFPAY ==
[2023-11-27 14:29] LABS: Mucous, Urine 0 SEEN /hpf (<or=2+); Red Blood Cells-Urine 0 SEEN /hpf (0-5)
[2023-11-27 15:29] LABS: Absolute Lymphocyte Count 1.92 X10^3/uL (0.83-4.51); Absolute Neutrophil Count 3.5 X10^3/uL (2.0-7.7); Basophil# 0.05 X10^3/uL; Basophil% 0.8 % (0-1); Eosinophil# 0.19 X10^3/uL; Eosinophils% 3.1 % (0-5); Hemoglobin 12.1 g/dL (12.0-15.0); Lymphocyte # 1.92 X10^3/ul (0.83-4.51); Lymphocyte % 31.7 % (19-41); Mean Corp Hgb Conc 32.7 g/dL (32-36); Mean Corpuscular Volume 91.8 fL (81-99); Mean Platelet Vol. 9.8 fl (6.2-12.0); Monocyte# 0.43 X10^3/uL; Monocyte% 7.1 % (0-10); NRBC Flagged by Analyzer 0 % (0-5); Neutrophil # 3.46 X10^3/uL (2.7-7.7); Neutrophil % 57.1 % (47-70); Platelet Count 274 K/mm3 (150-450); RBC Distribution Width CV 12.8 % (11.6-14.6); RBC Distribution Width SD 42.8 fl (35.1-43.9); Red Blood Count 4.03 M/mm3 (4.2-5.4); White Blood Count 6.1 K/mm3 (4.4-11.0)
[2023-11-27 16:39] LABS: Color, Urine Straw (Yellow); Glucose, Dipstick Normal (Normal); Ketone-Dipstick Negative (Negative); Leukocyte Esterase-Dipstick 25 /ul (Negative); Nitrite-Dipstick Negative (Negative); Occult Blood-Urine Negative /ul (Negative); Protein-Dipstick Negative (Negative); Urine Bilirubin Dipstick Negative (Negative); Urine Clarity Clear (Clear); Urine Urobilinogen Normal (Normal)
[2023-11-27 16:58] LABS: ALB/GLOB Ratio 1.1 RATIO (0.9-2.4); AST(SGOT) 24 U/L (15-37); Alanine Aminotransfer ALT/SGPT 20 U/L (13-56); Albumin, Serum 3.9 g/dL (3.2-5.0); Alkaline Phosphatase 96 U/L (45-117); Anion Gap 6 (5-15); BUN 16 mg/dL (7-18); BUN/Creat Ratio 18.8 RATIO (10-20); Bacteria 1+ /hpf (None Seen); Calcium,Total 9.6 mg/dL (8.5-10.1); Chloride 106 mmol/L (98-107); Creatinine, Serum 0.85 mg/dL (0.55-1.02); EST Glomerular Filtration Rate 69 mL/min (>60); Est Glom Filt Rate - Afr Amer 83 mL/min (>60); Globulin 3.6 g/dL (2.2-4.2); Glucose 91 mg/dL (74-106); Potassium 3.7 mmol/L (3.5-5.1); Protein, Total 7.5 g/dL (6.4-8.2); Sodium Level 140 mmol/L (136-145); Squamous Epithelial Cells - UA 0-5 SEEN /hpf (5-10); T4 Free Direct 1.03 ng/dL (0.76-1.46); Transitional Epithelial - Ur 0-5 SEEN /hpf (0-5); White Blood Cells 0-5 SEEN /hpf (0-5)
== END | disposition home or self-care (01) ==
LOC: BIMLAB 14:27
PROVIDERS: PCP Internal Medicine; Visit Provider Internal Medicine
DX: G30.1 Alzheimer's disease with late onset (principal); F02.83 Dementia in other diseases classified elsewhere, unspecified severity, with mood disturbance; I10 Essential (primary) hypertension
CPT/HCPCS: 36415; 80053; 81001; 84439; 84443; 85025

== ENCOUNTER → 2023-12-26 | Outpatient (CLI) | payer MEDICARE, SELFPAY ==
[2023-12-26 14:20] LABS: Red Blood Cells-Urine 0 SEEN /hpf (0-5)
[2023-12-26 15:20] LABS: Color, Urine Yellow (Yellow); Glucose, Dipstick Normal (Normal); Ketone-Dipstick Negative (Negative); Leukocyte Esterase-Dipstick 25 /ul (Negative); Nitrite-Dipstick Negative (Negative); Occult Blood-Urine Negative /ul (Negative); Protein-Dipstick 15 mg/dl (Negative); Urine Bilirubin Dipstick Negative (Negative); Urine Clarity Sl. Cloudy (Clear); Urine Urobilinogen Normal (Normal); Urine pH 6.5 (5.0 - 8.0)
[2023-12-26 15:27] LABS: Squamous Epithelial Cells - UA 0-5 SEEN /hpf (5-10)
[2023-12-26 15:28] LABS: Calcium Oxalate Crystals Ur RARE /hpf (<or=2+); Mucous, Urine 1+ /hpf (<or=2+); White Blood Cells 5-10 SEEN /hpf (0-5)
[2023-12-26 15:30] LABS: Bacteria RARE /hpf (None Seen); Renal Epithelial Cells 0-5 SEEN /hpf (0-5)
== END | disposition home or self-care (01) ==
LOC: LABSPEC 14:19
PROVIDERS: PCP Internal Medicine; Referring Provider Physician Assistant; Visit Provider Physician Assistant
DX: R30.0 Dysuria (principal)
CPT/HCPCS: 81001; 87086; 87088

== ENCOUNTER → 2024-04-07 | Outpatient (CLI) | payer MEDICARE, SELFPAY ==
[2024-04-07 13:19] LABS: Color, Urine Yellow (Yellow); Glucose, Dipstick Normal (Normal); Ketone-Dipstick 5 mg/dl (Negative); Leukocyte Esterase-Dipstick 500 /ul (Negative); Nitrite-Dipstick Negative (Negative); Occult Blood-Urine 250 /ul (Negative); Protein-Dipstick 100 mg/dl (Negative); Specific Gravity, Urine 1.015 (1.002-1.030); Urine Bilirubin Dipstick Negative (Negative); Urine Clarity Cloudy (Clear); Urine Urobilinogen 1 mg/dl (Normal)
== END | disposition home or self-care (01) ==
LOC: LABSPEC 12:27
PROVIDERS: PCP Internal Medicine; Referring Provider Emergency Medicine; Visit Provider Emergency Medicine
DX: R82.90 Unspecified abnormal findings in urine (principal)
CPT/HCPCS: 81002; 87077; 87086; 87088; 87186